=== PATIENT | male | born 1940 | race Caucasian/White ===

== ENCOUNTER 2017-05-12 10:33 | Inpatient (IN) | payer OTHER, MEDICARE ==
[~2017-05-12] VITALS: Ht 172.7 cm; Wt 118.0 kg
[2017-05-12 09:13] VITALS: BP_SYST 127; BP_SYST 139; BP_SYST 160; BP_DIAS 64; BP_DIAS 72; BP_DIAS 73; PULSE 62; RESP 20; TEMP 99.7; O2SAT 97
[~2017-05-12 10:33] MED LIST: ALBU17I INH; ASPI1TAB7 PO; ATOR80TA41 PO; CARB OP; CARV6.252 PO; CIPR500T4 PO; FERR324T4 PO; FLAG500T PO; GLIP5 PO; LEVO175T2 PO; LORA5SOL3 PO; MAGN70CA PO; METF-324 PO; OMEP20TA39 PO; PRIN10TA PO; TAB-TAB PO
[2017-05-12 10:51] VITALS: BP 100/58; PULSE 51; RESP 16; TEMP 96.7; O2SAT 95
[2017-05-12 11:07] VITALS: BP 122/58; PULSE 66; RESP 19; TEMP 97.8; O2SAT 97
[2017-05-12] MEDS ORDERED: SODIUM CHLOR 0.9% 1000 ML INJ 1,000 ML IV ONE (11:24)
[2017-05-12] MEDS ORDERED: ONDANSETRON HCL 4 MG/2 ML VIAL IVP ONE (11:30)
[2017-05-12] MEDS ORDERED: MECLIZINE HCL 25 MG TAB PO ONE (11:30)
--- NOTE | 2017-05-12 11:44 | PD ---
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 States that he felt fine this morning upon waking, ate his breakfast, then shortly thereafter became diaphoretic and weak. Says he was on the toilet and could not could not stand up to get off the toilet. Says that he became very diaphoretic and felt the room spinning, especially when moving his head. Also says he has a cough that started approximately 3-4 days ago while he was on the cruise. Patient says he returned home Thursday after an 8 day cruise began feeling the symptoms. States that he did not take all of his medications daily but took a generic OTC nausea medication daily to prevent nausea. Says he did fall yesterday hitting his head. But denies loss of consciousness. 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 Patient does not take medication for this regularly. Denies fevers, chills, chest pain, SOB, abdominal pain, vomiting, diarrhea. PFSH Past Medical History Hx Anticoagulant Therapy: Yes Arthritis: Yes Asthma: No Autoimmune Disease: No Anxiety: Yes Depression: Yes Heart Rhythm Problems: Yes Cancer: Yes Cardiovascular Problems: Yes High Cholesterol: Yes Chest Pain: No Congestive Heart Failure: Yes Cerebrovascular Accident: No Diabetes: Yes Patient Takes Glucophage: Yes Endocrine: Yes GERD: No Genitourinary: No Headaches: Yes Hiatal Hernia: Yes Hypertension: Yes Immune Disorder: No Insomnia: Yes Musculoskeletal: Yes Neurologic: Yes Psychiatric: Yes Respiratory: Yes Migraines: Yes Radiation Therapy: No Seizures: No Sleep Apnea: Yes Thyroid Disease: Yes (HYPO) Ulcer: Yes Past Surgical History Abdominal Surgery: Yes (UMBILICAL HERNIA) Eye Surgery: Yes (JASPER CATARACT) Valve Replacement: Yes (aortic repair) Other Surgery: Yes (UMBILICAL HERNIA REPAIR 80S, SHRAPNEL REMOVED FROM FACE AND LEFT SIDE 60S) Social History Alcohol Use: No (QUIT 30 YEARS AGO) Tobacco Use: No (QUIT 30 YEARS AGO) Substance Use: No Allergies-Medications (Allergen,Severity, Reaction): Coded Allergies: No Known Allergies (Unverified Allergy, Unknown, 05/12/17) Reported Meds & Prescriptions Reported Meds & Active Scripts Active Cipro (Ciprofloxacin HCl) 500 Mg Tab 500 Mg PO BID 10 Days Flagyl (Metronidazole) 500 Mg Tab 500 Mg PO TID 10 Days Reported Refresh Tears (Carboxymethylcellulose Sod) 300 Drop/15 Ml Bailey 1 Drop OP BID Carvedilol 6.25 mg (Carvedilol) 6.25 Mg Tab 0.5 Tab PO BID Ferrous Sulfate 325 Mg Tab 325 Mg PO BID Loratadine 5 Mg/5 Ml Bailey 10 Mg PO DAILY Metformin ER 24 HR (Metformin HCl) 1,000 Mg Tab 1,000 Mg PO BIDPC Hm Omeprazole (Omeprazole) 20 Mg Tab 20 Mg PO DAILY Glucotrol (Glipizide) 5 Mg Tab 5 Mg PO TID Prinivil (Lisinopril) 10 Mg Tab 10 Mg PO DAILY Lipitor 80 Mg Tab (Atorvastatin) 80 Mg Tab 80 Mg PO HS Magnesium Sulfate (Magnesium) 70 Mg Cap 70 Mg PO DAILY Multivitamin (Multivitamins) 1 Tab Tab 1 Tab PO DAILY Levothyroxine 175 mcg (Levothyroxine Sodium) 175 Mcg Tab 1 Tab PO DAILY Aspirin 81 mg Tab (Aspirin) 81 Mg Tab 1 Tab PO DAILY Proventil Mdi (Albuterol Sulfate) 17 Gm Aero 2 Puff INH Q6H PRN Review of Systems Except as stated in HPI: all other systems reviewed are Neg HENT: Positive: Vertigo Cardiovascular: Positive: Syncope Respiratory: Positive: Cough Physical Exam Narrative GENERAL: Well-developed, well-nourished in no apparent distress SKIN: Focused skin assessment cool, diaphoretic HEAD: Atraumatic. Normocephalic. EYES: Pupils equal and round. No scleral icterus. No injection or drainage. Left eye slight strabismus. No nystagmus ENT: No nasal bleeding or discharge. Mucous membranes pink and moist. NECK: Trachea midline. No JVD. No lymphadenopathy CARDIOVASCULAR: Regular rate and rhythm. No murmur appreciated. RESPIRATORY: No accessory muscle use. Right lung torre with rhonchi GASTROINTESTINAL: Abdomen soft, non-tender, nondistended. Hepatic and splenic margins not palpable. MUSCULOSKELETAL: No obvious deformities. No clubbing. No cyanosis. No edema. NEUROLOGICAL: Awake and alert. No obvious cranial nerve deficits. Motor grossly within normal limits. Normal speech. Negative pronator drift PSYCHIATRIC: Appropriate mood and affect; insight and judgment normal. Data Data Last Documented VS Vital Signs Date Time Temp Pulse Resp B/P (MAP) Pulse Ox O2 Delivery O2 Flow Rate FiO2 05/12/17 16:00 76 24 140/91 (107) 99 Room Air 05/12/17 11:07 97.8 Orders Orders Complete Blood Count With Diff (05/12/17 11:24) Comprehensive Metabolic Panel (05/12/17 11:24) Magnesium (Mg) (05/12/17 11:24) Troponin I (05/12/17 11:24) Act Partial Throm Time (Ptt) (05/12/17 11:24) Prothrombin Time / Inr (Pt) (05/12/17 11:24) Urinalysis - C+S If Indicated (05/12/17 11:24) Chest, Pa & Lat (05/12/17 11:24) Ct Brain W/O Iv Contrast(Rout) (05/12/17 11:24) Meclizine (Antivert) (05/12/17 11:30) Ondansetron Inj (Zofran Inj) (05/12/17 11:30) Sodium Chlor 0.9% 1000 Ml Inj (Ns 1000 M (05/12/17 11:24) Orthostatic Vital Signs (05/12/17 11:24) Sodium Chlorid 0.9% 500 Ml Inj (Ns 500 M (05/12/17 11:45) Electrocardiogram (05/12/17 11:08) D-Dimer (05/12/17 11:53) Ventilation & Perfusion Scan (05/12/17 ) Admit Order (Ed Use Only) (05/12/17 17:19) Labs Laboratory Tests Test 05/12/17 11:06 05/12/17 17:10 White Blood Count 6.0 TH/MM3 Red Blood Count 4.43 MIL/MM3 Hemoglobin 13.2 GM/DL Hematocrit 39.5 % Mean Corpuscular Volume 89.1 FL Mean Corpuscular Hemoglobin 29.8 PG Mean Corpuscular Hemoglobin Concent 33.4 % Red Cell Distribution Width 15.0 % Platelet Count 134 TH/MM3 Mean Platelet Volume 8.9 FL Neutrophils (%) (Auto) 59.9 % Lymphocytes (%) (Auto) 26.5 % Monocytes (%) (Auto) 7.3 % Eosinophils (%) (Auto) 5.5 % Basophils (%) (Auto) 0.8 % Neutrophils # (Auto) 3.6 TH/MM3 Lymphocytes # (Auto) 1.6 TH/MM3 Monocytes # (Auto) 0.4 TH/MM3 Eosinophils # (Auto) 0.3 TH/MM3 Basophils # (Auto) 0.0 TH/MM3 CBC Comment DIFF FINAL Differential Comment Prothrombin Time 10.7 SEC Prothromb Time International Ratio 1.1 RATIO Activated Partial Thromboplast Time 24.1 SEC D-Dimer Quantitative (PE/DVT) 1.40 MG/L FEU Blood Urea Nitrogen 35 MG/DL Creatinine 1.97 MG/DL Random Glucose 276 MG/DL Total Protein 7.4 GM/DL Albumin 3.1 GM/DL Calcium Level 8.2 MG/DL Magnesium Level 1.9 MG/DL Alkaline Phosphatase 63 U/L Aspartate Amino Transf (AST/SGOT) 59 U/L Alanine Aminotransferase (ALT/SGPT) 46 U/L Total Bilirubin 0.4 MG/DL Sodium Level 139 MEQ/L Potassium Level 3.7 MEQ/L Chloride Level 102 MEQ/L Carbon Dioxide Level 27.7 MEQ/L Anion Gap 9 MEQ/L Estimat Glomerular Filtration Rate 33 ML/MIN Troponin I 0.13 NG/ML Urine Color DARK-YELLOW Urine Turbidity HAZY Urine pH 5.5 Urine Specific [place] 1.037 Urine Protein 100 mg/dL Urine Glucose (UA) TRACE mg/dL Urine Ketones NEG mg/dL Urine Occult Blood NEG Urine Nitrite NEG Urine Bilirubin NEG Urine Urobilinogen 2.0 MG/DL Urine Leukocyte Esterase MOD Urine RBC 3 /hpf Urine WBC 10 /hpf Urine Squamous Epithelial Cells 2 /hpf Urine Bacteria OCC /hpf Urine Hyaline Casts 99 /lpf Microscopic Urinalysis Comment CULTURE INDICATED Urine Random Creatinine 405.1 MG/DL Urine Random Sodium 25 MEQ/L Urine Opiates Screen NEG Urine Barbiturates Screen NEG Urine Amphetamines Screen NEG Urine Benzodiazepines Screen NEG Urine Cocaine Screen NEG Urine Cannabinoids Screen NEG MDM Medical Decision Making Medical Screen Exam Complete: Yes Emergency Medical Condition: Yes Differential Diagnosis Vasovagal syncope syncope, NSTEMI, orthostatics, dehydration, vertigo, pneumonia , UTI, Narrative Course 76-year-old male presents emergency department via [facility] after presyncopal episode that occurred this morning. 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 In addition, patient states he has he was not completely compliant with his medications while on a cruise for the last 8 days. Says he came back on Thursday and began feeling these symptoms which include weakness. Says he fell and hit his head yesterday but denies head trauma today. [facility] administered normal saline 500 cc with improvement in patient's status and blood pressure. Vital signs stable. Labs and imaging studies ordered. CXR clear. He continues to deny SOB or chest pain. CBC & BMP Diagram 05/12/17 11:06 Total Protein 7.4, Albumin 3.1 L, Calcium Level 8.2 L, Magnesium Level 1.9, Alkaline Phosphatase 63, Aspartate Amino Transf (AST/SGOT) 59 H, Alanine Aminotransferase (ALT/SGPT) 46, Total Bilirubin 0.4 D-dimer elevated. Troponins elevated. Initially ordered a CT pulmonary angiogram however, patient's kidney function is less desirable. Ordered a VQ scan. VQ scan is a low probability of PE. Note that the Radiology report did not state this however, Dr. Roberts called the radiologist and confirmed this was a low probability study. Orthostatics positive. After reevaluation, pt sat up to sip water. Says he continued to feel dizzy and lightheaded. He says he 'only drinks soda'. I educated him on the importance of drinking water as well. Patient should be admitted for acute kidney injury likely secondary to dehydration, presyncope, and vertigo. Diagnosis Primary Impression: Bronchitis Additional Impressions: Elevated troponin MACARIO (acute kidney injury) Postural dizziness with presyncope Admitting Information Admitting Physician Requests: Admit Condition: Stable Yakelin Duggan May 12, 2017 11:44
[2017-05-12] MEDS ORDERED: SODIUM CHLORID 0.9% 500 ML INJ 500 ML IV ONE (11:45)
--- NOTE | 2017-05-12 12:04 | RADRPT ---
EXAM DATE/TIME: 05/12/2017 11:43 [facility] COMPARISON: No previous studies available for comparison. INDICATIONS : Fall yesterday. Heart palpitations and nausea. MEDICAL HISTORY : Chronic obstructive pulmonary disease. SURGICAL HISTORY : CABG. Aortic Valve replacement. ENCOUNTER: Initial ACUITY: 2 days PAIN SCORE: 0/10 LOCATION: Bilateral chest FINDINGS: PA and lateral views of the chest demonstrate the lungs to be symmetrically aerated without evidence of mass, infiltrate or effusion. Placement. Atrial appendage. Heart borderline enlarged. The cardiome diastinal contours are unremarkable. Osseous structures are intact. CONCLUSION: 1. Heart valve replacement. 2. Clear lungs. Leonardo Alvarado MD on May 12, 2017 at 12:02 Board Certified Radiologist. This report was verified electronically.
--- NOTE | 2017-05-12 12:11 | RADRPT ---
EXAM DATE/TIME: 05/12/2017 11:56 [facility] COMPARISON: No previous studies available for comparison. INDICATIONS : Dizziness. RADIATION DOSE: 51.56 CTDIvol (mGy) MEDICAL HISTORY : Cardiovascular disease. Diabetes mellitus type 2. Hypertension. SURGICAL HISTORY : None. ENCOUNTER: Initial ACUITY: 1 day PAIN SCALE: 0/10 LOCATION: cranial TECHNIQUE: Multiple contiguous axial images were obtained of the head. Using automated exposure control and adj ustment of the mA and/or kV according to patient size, radiation dose was kept as low as reasonably a chievable to obtain optimal diagnostic quality images. DICOM format image data is available electro nically for review and comparison. FINDINGS: CEREBRUM: The ventricles are normal for age. Right basal ganglia lacunar infarct indeterminate age but likely o ld. This No evidence of midline shift, mass lesion, hemorrhage or acute infarction. No extra-axial fluid collections are seen. POSTERIOR FOSSA: The cerebellum and brainstem are intact. The 4th ventricle is midline. The cerebellopontine angle i s unremarkable. EXTRACRANIAL: The visualized portion of the orbits is intact. SKULL: The calvaria is intact. No evidence of skull fracture. CONCLUSION: Lacunar infarct right basal ganglia, likely old. No other abnormality seen. Leonardo Alvarado MD on May 12, 2017 at 12:08 Board Certified Radiologist. This report was verified electronically.
[2017-05-12 12:27] LABS: AUTOMATED NEUTROPHIL # 3.6 TH/MM3 (1.8-7.7); BASOPHIL % 0.8 % (0.0-2.0); EOSINOPHIL # 0.3 TH/MM3 (0-0.4); EOSINOPHIL % 5.5 % (0.0-4.0); HEMATOCRIT 39.5 % (39.0-51.0); HEMOGLOBIN 13.2 GM/DL (13.0-17.0); LYMPH % 26.5 % (9.0-44.0); LYMPHOCYTE # 1.6 TH/MM3 (1.0-4.8); MEAN CELL VOLUME 89.1 FL (80.0-100.0); MEAN CORPUSCULAR HEMOGLOBIN 29.8 PG (27.0-34.0); MEAN CORPUSCULAR HGB CONC 33.4 % (32.0-36.0); MEAN PLATELET VOLUME 8.9 FL (7.0-11.0); MONO % 7.3 % (0.0-8.0); MONOCYTE # 0.4 TH/MM3 (0-0.9); NEUT % 59.9 % (16.0-70.0); PLATELET COUNT 134 TH/MM3 (150-450); RED BLOOD COUNT 4.43 MIL/MM3 (4.50-5.90)
[2017-05-12 12:36] LABS: INTERNATIONAL NORMALIZED RATIO 1.1 RATIO; PROTHROMBIN TIME - PATIENT 10.7 SEC (9.8-11.6)
[2017-05-12 12:40] LABS: ALBUMIN 3.1 GM/DL (3.4-5.0); AST (GOT) 59 U/L (15-37); BICARBONATE 27.7 MEQ/L (21.0-32.0); BLOOD UREA NITROGEN 35 MG/DL (7-18); CALCIUM 8.2 MG/DL (8.5-10.1); CHLORIDE 102 MEQ/L (98-107); CREATININE 1.97 MG/DL (0.60-1.30); GLOMERULAR FILTRATION RATE 33 ML/MIN (>89); GLUCOSE,RANDOM 276 MG/DL (74-106); MAGNESIUM 1.9 MG/DL (1.5-2.5); SODIUM (NA) 139 MEQ/L (136-145)
[2017-05-12 12:45] LABS: ALKALINE PHOSPHATASE 63 U/L (45-117); ALT (GPT) 46 U/L (12-78); TOTAL BILIRUBIN ADULT 0.4 MG/DL (0.2-1.0); TOTAL PROTEIN 7.4 GM/DL (6.4-8.2); TROPONIN I 0.13 NG/ML (0.02-0.05)
--- NOTE | 2017-05-12 14:41 | EKG ---
Date Performed: 05/12/2017 Time Performed: 11:08:13 PTAGE: 76 years EKG: Sinus rhythm T-WAVE ABNORMALITY, CONSIDER LATERAL ISCHEMIA ABNORMAL ECG PREVIOUS TRACING : 03/26/2015 18.12 Compared to previous tracing, high lateral T wave inversion is now present. DOCTOR: Pj Jeffers Interpretating Date/Time 05/12/2017 14:39:48
[2017-05-12 16:00] VITALS: BP 140/91; PULSE 76; RESP 24; O2SAT 99
--- NOTE | 2017-05-12 16:42 | RADRPT ---
EXAM DATE/TIME: 05/12/2017 15:21 This report includes an Addendum and supersedes previous reports for this exam. [facility] COMPARISON: CHEST PA & LAT, May 12, 2017, 11:43. INDICATIONS : Pre-Syncope with elevated d-dimer. DOSE: 1.1 mCi Tc99m DTPA 8.8 mCi Tc99m MAA MEDICAL HISTORY : Diabetes mellitus type 2. Congestive heart failure. AVR. SURGICAL HISTORY : Umbilical hernia repair. ENCOUNTER: Initial ACUITY: 1 day PAIN SCALE: 0/10 LOCATION: chest TECHNIQUE: Following five minutes of tidal breathing of DTPA aerosol, planar images of the lungs were performed in eight projections. The patient was then injected with MAA, and eight-view perfusion scan was perf ormed. FINDINGS: There is a a single matched defect only identified in the posterior aspect of the left lung in the LP O projection with no corresponding radiographic abnormality. Otherwise, homogeneous distribution of r adiotracer on both the ventilatory and perfusion scans. . CONCLUSION: Probability scan for pulmonary embolus. Brad Fleming MD on May 12, 2017 at 16:32 Board Certified Radiologist. This report was verified electronically. ADDENDUM: Please note, conclusion should read "low probability scan for pulmonary embolus" Brad Fleming MD on May 12, 2017 at 16:50 Board Certified Radiologist. This report was verified electronically.
[2017-05-12 17:26] VITALS: BP_SYST 102; BP_SYST 105; BP_SYST 129; BP_DIAS 56; BP_DIAS 62; BP_DIAS 64; RESP 16; RESP 17; RESP 19
[2017-05-12] MEDS ORDERED: SODIUM CHLORIDE 0.9% FLUSH 10 ML FLUSH IV FLUSH PRN (17:30)
[2017-05-12] MEDS ORDERED: GLUCAGON 1 MG/ML VIAL OTHER PRN (17:45)
[2017-05-12] MEDS ORDERED: DEXTROSE 50% IN WATER 50 ML VIAL(D50) IV PUSH PRN (17:45)
--- NOTE | 2017-05-12 17:55 | PD ---
Physical Exam Date Seen by Provider: May 12, 2017 Time Seen by Provider: 12:30 Narrative I, Dr. Daniels, have reviewed the advance practice practitioner's documentation and am in agreement, met with the patient face to face, made the diagnosis, and the medical decision making was done by me. *My assessment and Findings: Patient seen and evaluated with PA, please see PA note for further details. He is here because he has been feeling more dizzy and unsteady today. His blood pressure was low when EMS got there. He has no focal neurological deficits. He denies any chest pains. Initial EKG did not show significant dysrhythmias or ST elevations or depressions. Laboratory Tests Test 05/12/17 11:06 05/12/17 17:10 Red Blood Count 4.43 MIL/MM3 (4.50-5.90) Platelet Count 134 TH/MM3 (150-450) Eosinophils (%) (Auto) 5.5 % (0.0-4.0) Activated Partial Thromboplast Time 24.1 SEC (24.3-30.1) D-Dimer Quantitative (PE/DVT) 1.40 MG/L FEU (0.00-0.50) Blood Urea Nitrogen 35 MG/DL (7-18) Creatinine 1.97 MG/DL (0.60-1.30) Random Glucose 276 MG/DL (74-106) Albumin 3.1 GM/DL (3.4-5.0) Calcium Level 8.2 MG/DL (8.5-10.1) Aspartate Amino Transf (AST/SGOT) 59 U/L (15-37) Estimat Glomerular Filtration Rate 33 ML/MIN (>89) Troponin I 0.13 NG/ML (0.02-0.05) Last [address] 05/12/17 1124 Signed Impressions: Service Date/Time: Friday, May 12, 2017 11:56 - CONCLUSION: Lacunar infarct right basal ganglia, likely old. No other abnormality seen. Leonardo Alvarado MD Chest X-Ray 05/12/17 112 Signed Impressions: Service Date/Time: Friday, May 12, 2017 11:43 - CONCLUSION: 1. Heart valve replacement. 2. Clear lungs. Leonardo Alvarado MD Lung Scan- Nuclear Medicine 05/12/17 0000 Signed Impressions: Service Date/Time: Friday, May 12, 2017 15:21 - CONCLUSION: Probability scan for pulmonary embolus. Brad Fleming MD ADDENDUM: Please note, conclusion should read low probability scan for pulmonary embolus Brad Fleming MD Lab work shows significant elevation of BUN and creatinine concerning for underlying dehydration or renal function issues. Troponin is mildly elevated as well. CT of the brain did not show any signs of acute intracranial processes. D-dimer was elevated and PE study was done which was unremarkable. At this point, plan would be to admit the patient for IV fluids and further evaluation. Data Data Last Documented VS Vital Signs Date Time Temp Pulse Resp B/P (MAP) Pulse Ox O2 Delivery O2 Flow Rate FiO2 05/12/17 11:07 97.8 66 19 122/58 (79) 97 Room Air Orders Orders Complete Blood Count With Diff (05/12/17 11:24) Comprehensive Metabolic Panel (05/12/17 11:24) Magnesium (Mg) (05/12/17 11:24) Troponin I (05/12/17 11:24) Act Partial Throm Time (Ptt) (05/12/17 11:24) Prothrombin Time / Inr (Pt) (05/12/17 11:24) Urinalysis - C+S If Indicated (05/12/17 11:24) Chest, Pa & Lat (05/12/17 11:24) Ct Brain W/O Iv Contrast(Rout) (05/12/17 11:24) Meclizine (Antivert) (05/12/17 11:30) Ondansetron Inj (Zofran Inj) (05/12/17 11:30) Sodium Chlor 0.9% 1000 Ml Inj (Ns 1000 M (05/12/17 11:24) Orthostatic Vital Signs (05/12/17 11:24) Sodium Chlorid 0.9% 500 Ml Inj (Ns 500 M (05/12/17 11:45) Electrocardiogram (05/12/17 11:08) D-Dimer (05/12/17 11:53) Ventilation & Perfusion Scan (05/12/17 ) Admit Order (Ed Use Only) (05/12/17 17:19) Labs Laboratory Tests Test 05/12/17 11:06 05/12/17 17:10 White Blood Count 6.0 TH/MM3 Red Blood Count 4.43 MIL/MM3 Hemoglobin 13.2 GM/DL Hematocrit 39.5 % Mean Corpuscular Volume 89.1 FL Mean Corpuscular Hemoglobin 29.8 PG Mean Corpuscular Hemoglobin Concent 33.4 % Red Cell Distribution Width 15.0 % Platelet Count 134 TH/MM3 Mean Platelet Volume 8.9 FL Neutrophils (%) (Auto) 59.9 % Lymphocytes (%) (Auto) 26.5 % Monocytes (%) (Auto) 7.3 % Eosinophils (%) (Auto) 5.5 % Basophils (%) (Auto) 0.8 % Neutrophils # (Auto) 3.6 TH/MM3 Lymphocytes # (Auto) 1.6 TH/MM3 Monocytes # (Auto) 0.4 TH/MM3 Eosinophils # (Auto) 0.3 TH/MM3 Basophils # (Auto) 0.0 TH/MM3 CBC Comment DIFF FINAL Differential Comment Prothrombin Time 10.7 SEC Prothromb Time International Ratio 1.1 RATIO Activated Partial Thromboplast Time 24.1 SEC D-Dimer Quantitative (PE/DVT) 1.40 MG/L FEU Blood Urea Nitrogen 35 MG/DL Creatinine 1.97 MG/DL Random Glucose 276 MG/DL Total Protein 7.4 GM/DL Albumin 3.1 GM/DL Calcium Level 8.2 MG/DL Magnesium Level 1.9 MG/DL Alkaline Phosphatase 63 U/L Aspartate Amino Transf (AST/SGOT) 59 U/L Alanine Aminotransferase (ALT/SGPT) 46 U/L Total Bilirubin 0.4 MG/DL Sodium Level 139 MEQ/L Potassium Level 3.7 MEQ/L Chloride Level 102 MEQ/L Carbon Dioxide Level 27.7 MEQ/L Anion Gap 9 MEQ/L Estimat Glomerular Filtration Rate 33 ML/MIN Troponin I 0.13 NG/ML [facility] Medical Record Reviewed: Yes Supervised Visit with CHARITY: Yes Diagnosis Primary Impression: Bronchitis Additional Impressions: Elevated troponin Postural dizziness with presyncope MACARIO (acute kidney injury) Admitting Information Admitting Physician Requests: Admit Condition: Stable Leilani Daniels MD May 12, 2017 17:55
[2017-05-12 18:12] LABS: BACTERIA, URINE OCC /hpf; BILIRUBIN, URINE NEG (NEG); BLOOD, URINE NEG (NEG); GLUCOSE,URINE TRACE mg/dL (NEG); HYALINE CAST, URINE 99 /lpf (RARE); KETONE, URINE NEG (NEG); NITRITE,URINE NEG (NEG); PH, URINE 5.5 (5.0-8.5); SQUAMOUS EPITHELIAL CELL URINE 2 /hpf (0-5); URINE COLOR DARK-YELLOW (YELLW/STRAW); URINE LEUKOCYTE ESTERASE MOD (NEG)
[2017-05-12 19:41] VITALS: BP 156/64; PULSE 61; RESP 18; TEMP 97.8; O2SAT 97
--- NOTE | 2017-05-12 20:51 | HHI.HP ---
[facility] Service [facility] Primary Care Physician [facility] Admission Diagnosis MACARIO, dehydration, vertigo Diagnoses: (1) Postural dizziness with presyncope (2) MACARIO (acute kidney injury) (3) Elevated troponin Chief Complaint: Weakness, fall, dizziness, diaphoresis Travel History International Travel<30 Days: Yes Contact w/Intl Traveler <30 Da: [place] Traveled to: [facility] Traveled to Known Affected Are: No History of Present Illness Mr. 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 He was found to have acute kidney injury, elevated troponin I, lateral T-wave inversion on 12-lead EKG and is admitted to the hospitalist team for evaluation and management. The patient returned from an 8 day cruise to [facility] on Thursday morning and traveled back home and arrived around 10 PM at night. Following his arrival back home, the patient fell, 05/10/2017, states he got dizzy accompanied by nausea and fell backwards and landed on his buttock, denies loss of consciousness and denies hitting head. His called EMS at that time and he refused transport to the hospital. Then, he had an episode of feeling cold and clammy while up to urinate in the bathroom on Thursday and his again summoned EMS and he was transported to the ER. He reports his symptoms have been present for 2 days. He states that he he has been weak and could barely move on Thursday. He has some right hip pain status post fall on Thursday. He also reports severe fatigue. He states that his nausea was relieved in the emergency room with medication given. He was given meclizine, Zofran, and a normal saline fluid bolus in the ED. He denies any chest pain, shortness of breath, palpitations, or vomiting. He reports chronic daily diarrhea related to poor food choices without hematochezia or black stools. He has no recorded fevers but states he has been feeling "" warm. Denies chills. He denies any vomiting and reports chronic peripheral edema that is relieved with compression stockings. 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 Patient had a cardiac catheterization in 2013 that showed 20% blockage of 1 of his coronary arteries but otherwise has no stents or CABG history . Past Surgical History bovine aortic valve replacement 11/24/2013 Reported Medications Reported Meds & Active Scripts Active Cipro (Ciprofloxacin HCl) 500 Mg Tab 500 Mg PO BID 10 Days Flagyl (Metronidazole) 500 Mg Tab 500 Mg PO TID 10 Days Reported Refresh Tears (Carboxymethylcellulose Sod) 300 Drop/15 Ml Bailey 1 Drop OP BID Carvedilol 6.25 mg (Carvedilol) 6.25 Mg Tab 0.5 Tab PO BID Ferrous Sulfate 325 Mg Tab 325 Mg PO BID Loratadine 5 Mg/5 Ml Bailey 10 Mg PO DAILY Metformin ER 24 HR (Metformin HCl) 1,000 Mg Tab 1,000 Mg PO BIDPC Hm Omeprazole (Omeprazole) 20 Mg Tab 20 Mg PO DAILY Glucotrol (Glipizide) 5 Mg Tab 5 Mg PO TID Prinivil (Lisinopril) 10 Mg Tab 10 Mg PO DAILY Lipitor 80 Mg Tab (Atorvastatin) 80 Mg Tab 80 Mg PO HS Magnesium Sulfate (Magnesium) 70 Mg Cap 70 Mg PO DAILY Multivitamin (Multivitamins) 1 Tab Tab 1 Tab PO DAILY Levothyroxine 175 mcg (Levothyroxine Sodium) 175 Mcg Tab 1 Tab PO DAILY Aspirin 81 mg Tab (Aspirin) 81 Mg Tab 1 Tab PO DAILY Proventil Mdi (Albuterol Sulfate) 17 Gm Aero 2 Puff INH Q6H PRN . Allergies: Coded Allergies: No Known Allergies (Unverified Allergy, Unknown, 05/12/17) Family History Father at age 52 from myocardial infarction Mother had an aneurysm in her 70s so the vessel of the aneurysm is unknown to patient Brother with nonalcoholic steatosis cirrhosis with renal failure . Social History Tobacco: Has not smoked since 1977, smoked 2 - 3 PPD at the time Alcohol: Has not had alcohol since 1977 - was told his kidneys would fail if he continued to drink . Physical Exam Vital Signs Vital Signs Date Time Temp Pulse Resp B/P (MAP) Pulse Ox O2 Delivery O2 Flow Rate FiO2 05/12/17 19:41 97.8 61 18 156/64 (94) 97 Room Air 05/12/17 17:26 58 17 129/62 (84) 60 16 102/56 (71) 62 19 105/64 (78) 05/12/17 16:00 76 24 140/91 (107) 99 Room Air 05/12/17 11:07 97.8 66 19 122/58 (79) 97 Room Air 05/12/17 10:51 96.7 51 16 100/58 (72) 95 Physical Exam GENERAL: This is an overweight elderly male patient, in no apparent distress. SKIN: No rashes. Cool and dry. HEAD: Old shrapnel injury noted to forehead. Normocephalic. EYES: No scleral icterus. No injection or drainage. ENT: Nose without bleeding, purulent drainage. NECK: Trachea midline. No JVD. CARDIOVASCULAR: Regular rate and rhythm without murmurs, gallops, or rubs. Trace lower extremity edema. RESPIRATORY: Breath sounds with coarse upper airway sounds, equal bilaterally. GASTROINTESTINAL: Abdomen soft, non-tender, nondistended. No guarding. MUSCULOSKELETAL: Extremities without clubbing, cyanosis. No calf tenderness. Left hip painful with movement, weight bearing. No gross deformity/leg shortening/external rotation noted. NEUROLOGICAL: Awake and alert. Motor and sensory grossly within normal limits. Normal speech. . Laboratory Laboratory Tests Test 05/12/17 11:06 05/12/17 17:10 05/12/17 18:25 White Blood Count 6.0 Red Blood Count 4.43 Hemoglobin 13.2 Hematocrit 39.5 Mean Corpuscular Volume 89.1 Mean Corpuscular Hemoglobin 29.8 Mean Corpuscular Hemoglobin Concent 33.4 Red Cell Distribution Width 15.0 Platelet Count 134 Mean Platelet Volume 8.9 Neutrophils (%) (Auto) 59.9 Lymphocytes (%) (Auto) 26.5 Monocytes (%) (Auto) 7.3 Eosinophils (%) (Auto) 5.5 Basophils (%) (Auto) 0.8 Neutrophils # (Auto) 3.6 Lymphocytes # (Auto) 1.6 Monocytes # (Auto) 0.4 Eosinophils # (Auto) 0.3 Basophils # (Auto) 0.0 CBC Comment DIFF FINAL Differential Comment Prothrombin Time 10.7 Prothromb Time International Ratio 1.1 Activated Partial Thromboplast Time 24.1 D-Dimer Quantitative (PE/DVT) 1.40 Blood Urea Nitrogen 35 Creatinine 1.97 Random Glucose 276 Total Protein 7.4 Albumin 3.1 Calcium Level 8.2 Magnesium Level 1.9 Alkaline Phosphatase 63 Aspartate Amino Transf (AST/SGOT) 59 Alanine Aminotransferase (ALT/SGPT) 46 Total Bilirubin 0.4 Sodium Level 139 Potassium Level 3.7 Chloride Level 102 Carbon Dioxide Level 27.7 Anion Gap 9 Estimat Glomerular Filtration Rate 33 Troponin I 0.13 0.11 Urine Color DARK-YELLOW Urine Turbidity HAZY Urine pH 5.5 Urine Specific Krypton 1.037 Urine Protein 100 Urine Glucose (UA) TRACE Urine Ketones NEG Urine Occult Blood NEG Urine Nitrite NEG Urine Bilirubin NEG Urine Urobilinogen 2.0 Urine Leukocyte Esterase MOD Urine RBC 3 Urine WBC 10 Urine Squamous Epithelial Cells 2 Urine Bacteria OCC Urine Hyaline Casts 99 Microscopic Urinalysis Comment CULTURE INDICATED B-Type Natriuretic Peptide 17 Date/Time Source Procedure Growth Status 05/12/17 17:10 Urine Clean Catch Urine Culture Pending Received Result Diagram: 05/12/17 1106 05/12/17 1106 Imaging Last Impressions Head CT 05/12/17 1124 Signed Impressions: Service Date/Time: Friday, May 12, 2017 11:56 - CONCLUSION: Lacunar infarct right basal ganglia, likely old. No other abnormality seen. Leonardo Alvarado MD Chest X-Ray 05/12/17 1124 Signed Impressions: Service Date/Time: Friday, May 12, 2017 11:43 - CONCLUSION: 1. Heart valve replacement. 2. Clear lungs. Leonardo Alvarado MD Lung Scan- Nuclear Medicine 05/12/17 0000 Signed Impressions: Service Date/Time: Friday, May 12, 2017 15:21 - CONCLUSION: Probability scan for pulmonary embolus. Brad Fleming MD ADDENDUM: Please note, conclusion should read low probability scan for pulmonary embolus Brad Fleming MD . Caprini VTE Risk Assessment Caprini VTE Risk Assessment: Mod/High Risk (score >= 2) Caprini Risk Assessment Model Point Value = 1 Point Value = 2 Point Value = 3 Point Value = 5 Age 41-60 Minor surgery BMI > 25 kg/m2 Swollen legs Varicose veins or History of unexplained or recurrent spontaneous Oral contraceptives or hormone replacement Sepsis (< 1 month) Serious lung disease, including pneumonia (< 1 month) Abnormal pulmonary function Acute myocardial infarction Congestive heart failure (< 1 month) History of inflammatory bowel disease Medical patient at bed rest Age 61-74 Arthroscopic surgery Major open surgery (> 45 min) Laparoscopic surgery (> 45 min) Malignancy Confined to bed (> 72 hours) Immobilizing plaster cast Central venous access Age >= 75 History of VTE Family history of VTE Factor V Leiden Prothrombin 21987S Lupus anticoagulant Anticardiolipin antibodies Elevated serum homocysteine Heparin-induced thrombocytopenia Other congenital or acquired thrombophilia Stroke (< 1 month) Elective arthroplasty Hip, pelvis, or leg fracture Acute spinal cord injury (< 1 month) Prophylaxis Regimen Total Risk Factor Score Risk Level Prophylaxis Regimen 0-1 Low Early ambulation 2 Moderate Order ONE of the following: *Sequential Compression Device (SCD) *Heparin 5000 units SQ BID 3-4 Higher Order ONE of the following medications: *Heparin 5000 units SQ TID *Enoxaparin/Lovenox 40 mg SQ daily (WT < 150 kg, CrCl > 30 mL/min) *Enoxaparin/Lovenox 30 mg SQ daily (WT < 150 kg, CrCl > 10-29 mL/min) *Enoxaparin/Lovenox 30 mg SQ BID (WT < 150 kg, CrCl > 30 mL/min) AND/OR *Sequential Compression Device (SCD) 5 or more Highest Order ONE of the following medications: *Heparin 5000 units SQ TID (Preferred with Epidurals) *Enoxaparin/Lovenox 40 mg SQ daily (WT < 150 kg, CrCl > 30 mL/min) *Enoxaparin/Lovenox 30 mg SQ daily (WT < 150 kg, CrCl > 10-29 mL/min) *Enoxaparin/Lovenox 30 mg SQ BID (WT < 150 kg, CrCl > 30 mL/min) AND *Sequential Compression Device (SCD) Assessment and Plan Assessment and Plan Mr. 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 He was found to have acute kidney injury, elevated troponin I, lateral T-wave inversion on 12-lead EKG and is admitted to the hospitalist team for evaluation and management. Elevated cardiac enzymes possibly secondary to acute kidney injury versus ACS -Lateral T-wave inversion on 12-lead on initial EKG -awaiting subsequent EKGs for trending -follow results -Serial cardiac enzymes to rule out ACS -initial troponin I was 0.13 and second troponin is trending downward at 0.11 -await third cardiac enzyme set and follow results -Continuous cardiac telemetry to monitor for arrhythmia Dizziness with fall Chronic vertigo duration 6 months due to hearing loss in the right ear according to the patient -The patient fell on 05/10/2017 -states he got dizzy accompanied by nausea and fell backwards and landed on his buttock, denies loss of consciousness and denies hitting head -had an episode of feeling cold and clammy while up to urinate in the bathroom on Thursday resulting in ER evaluation -We will check echocardiogram to check cardiac structure and function, Holter monitor to check for contributing arrhythmias overtime, EEG to rule out seizure activity, carotid ultrasound to rule out carotid artery stenosis -Head CT showed likely old lacunar infarct right basal ganglia with no other abnormalities seen. Will order MRI/MRA of the brain to further evaluate -Consult neurology; appreciate assistance and recommendations Acute kidney injury likely secondary to dehydration -BUN 35, creatinine 1.97, estimated GFR 33 -significantly worsened compared to 2014 labs and patient denies any current problems with kidneys -does not see a gang pusher -Fluid bolus given in the ED -We will recheck kidney function in a.m. and follow results -Follow-up results of renal ultrasound -Avoid nephrotoxins -May want nephrology consultation if MACARIO persists Type 2 Diabetes Mellitus -We will hold home Glucotrol and metformin for now (med rec still not completed but would hold regardless at this time) - Accu-Cheks before meals and at bedtime with low-dose NovoLog sliding scale coverage - Hypoglycemia protocol - Monitor trends and blood glucose readings and adjust treatments as indicated Abnormal urinalysis -Urine culture pending; await results -will hold off on antibiotics for now as patient does not have an elevated white count and is afebrile Bronchitis suspected -Chest x-ray negative for acute cardiopulmonary process -Duo nebulizers every 4 hours as needed for shortness of breath/wheezing Right hip pain status post fall at home -We will check x-ray of hip but suspect this may be more of an acute on chronic process-arthritic pain with exacerbation -Patient does not want narcotic medications will add Tylenol as needed for pain AST elevation of undetermined significance -Will repeat CMP in a.m. and follow results DVT prophylaxis -Heparin 5000 units subcu every 8 hours Nursing to complete medication reconciliation so that patient's home meds can be restarted - RN was in a trauma at the time of my visit - order written and RN to complete and notify medical team when completed Discussed Condition With Patient and Dr. Reyes Physician Certification 2 Midnight Certification Type: Admission for Inpatient Services Order for Inpatient Services The services are ordered in accordance with Medicare regulations or non- Medicare payer requirements, as applicable. In the case of services not specified as inpatient-only, they are appropriately provided as inpatient services in accordance with the 2-midnight benchmark. Estimated LOS (days): 3 days is the estimated time the patient will need to remain in the hospital, assuming treatment plan goals are met and no additional complications. Post-Hospital Plan: Not yet determined Day Sinha May 12, 2017 20:51
--- NOTE | 2017-05-12 21:42 | RADRPT ---
EXAM DATE/TIME: 05/12/2017 19:41 [facility] COMPARISON: No previous studies available for comparison. INDICATIONS : Elevated labs. MEDICAL HISTORY : Hypertension. Hypercholesterolemia. Hypothyroidism. Gout. Joint pain. Diabetes. Arthritis. SURGICAL HISTORY : Left shoulder. ENCOUNTER: Initial ACUITY: 1 day PAIN SCORE: 0/10 LOCATION: Bilateral flank MEASUREMENTS: RIGHT KIDNEY: 9.9 x 4.8 x 8.5 cm LEFT KIDNEY: 10.6 x 4.7 x 5.6 cm FINDINGS: No hydronephrosis. 7 mm x 5 mm calculus mid pole right kidney. No perinephric fluid. Bladder unremark able. CONCLUSION: 1. Nonobstructing right renal calculus. Renal ultrasound otherwise unremarkable. Jose Guadalupe Block MD on May 12, 2017 at 21:39 Board Certified Radiologist. This report was verified electronically.
--- NOTE | 2017-05-12 21:42 | RADRPT ---
EXAM DATE/TIME: 05/12/2017 19:17 [facility] COMPARISON: No previous studies available for comparison. INDICATIONS : Syncope. MEDICAL HISTORY : Hypertension. Hypercholesterolemia. Hypothyroidism. Diabetes. Gout. Arthritis. Neuropathy. SURGICAL HISTORY : Umbilical hernia. Left rotator cuff repair. ENCOUNTER: Initial ACUITY: 1 day PAIN SCORE: 2/10 LOCATION: Bilateral neck PEAK SYSTOLIC VELOCITIES (cm/sec): ICA/CCA RATIO: Right: 1.2 Left: 1.1 ICA: Right: 57 Left: 75 CCA: Right: 47 Left: 70 ECA: Right: 60 Left: 53 VERTEBRAL: Right: 42 antegrade Left: 37 antegrade Elevated flow velocities and ICA/CCA ratios have been found to correlate with increased degrees of vessel stenosis, calculated as percentage of diameter relative to a normal segment of distal ICA/CCA FINDINGS: RIGHT CAROTID: No significant stenosis is visualized. The waveforms are within normal limits. LEFT CAROTID: No significant stenosis is visualized. The waveforms are within normal limits. VERTEBRAL ARTERIES: Antegrade flow is seen in both vertebral arteries. MISCELLANEOUS: None. CONCLUSION: 1. Mild bilateral plaque formation the carotid arteries. No hemodynamically significant stenosis. Chucky tebral artery flow is antegrade. Jose Guadalupe Block MD on May 12, 2017 at 21:39 Board Certified Radiologist. This report was verified electronically.
[2017-05-12] MEDS ORDERED: RESP: ALBUTEROL 2.5 MG/IPRATROPIUM 0.5 MG NEB (PRN) NEB (21:45)
--- NOTE | 2017-05-12 22:45 | RADRPT ---
EXAM DATE/TIME: 05/12/2017 21:39 [facility] COMPARISON: No previous studies available for comparison. INDICATIONS : Right hip pain after fall. MEDICAL HISTORY : Chronic obstructive pulmonary disease. SURGICAL HISTORY : CABG. Aortic Valve replacement. ENCOUNTER: Initial ACUITY: 2 days PAIN SCORE: 5/10 LOCATION: Right hip. FINDINGS: Examination of the right hip was performed with AP Pelvis. The primary and secondary trabecular michelle prince of the femoral neck is intact. The hip joint is of normal width without significant sclerosis or bony hypertrophy. The acetabulum is grossly intact. CONCLUSION: 1. No acute bony abnormality. Jose Guadalupe Block MD on May 12, 2017 at 22:41 Board Certified Radiologist. This report was verified electronically.
--- NOTE | 2017-05-12 23:01 | RADRPT ---
EXAM DATE/TIME: 05/12/2017 22:10 [facility] COMPARISON: No previous studies available for comparison. INDICATIONS : CVA. MEDICAL HISTORY : Hypothyroidism. SURGICAL HISTORY : Aortic valve replacment, Hernia repair. ENCOUNTER: Initial ACUITY: 1 day PAIN SCORE: 2/10 LOCATION: Bilateral cranial TECHNIQUE: Multiplanar, multisequence MRI of the brain was performed without contrast. FINDINGS: CEREBRUM: The ventricles are normal for age. No evidence of midline shift, mass lesion, hemorrhage or acute in farction. No extraaxial fluid collections are seen. The pituitary gland and suprasellar cistern are normal in configuration. WHITE MATTER: No significant signal abnormalities are seen in the white matter. POSTERIOR FOSSA: The cerebellum and brainstem are intact. The 4th ventricle is midline. The cerebellopontine angle is unremarkable. The cerebellar tonsils are normal in position. DIFFUSION IMAGING: No focal areas of restricted diffusion are seen. No evidence of acute infarction. EXTRACRANIAL: The visualized portions of the orbits and paranasal sinuses are unremarkable. CONCLUSION: 1. No acute findings. Remote lacunar infarct right basal ganglia. No recent infarct, mass effect or s hift. Jose Guadalupe Block MD on May 12, 2017 at 22:57 Board Certified Radiologist. This report was verified electronically.
--- NOTE | 2017-05-12 23:04 | RADRPT ---
EXAM DATE/TIME: 05/12/2017 22:10 [facility] COMPARISON: No previous studies available for comparison. INDICATIONS : CVA. MEDICAL HISTORY : Hypothyroidism. SURGICAL HISTORY : Aortic valve replacment, Hernia repair. ENCOUNTER: Initial ACUITY: 1 day PAIN SCORE: 3/10 LOCATION: Bilateral cranial Please note a normal MRA of the brain does not entirely exclude the possibility of a small aneurysm, nor the possibility of distal intracranial vessel disease. TECHNIQUE: 3D time of flight MRA was performed. Source images, multiplanar STS MIP, and 3D volume MIP reconstru ctions were reviewed. FINDINGS: Least a moderate focal stenosis of the distal right middle cerebral artery. Mild stenosis left landscaper ior cerebral artery. Basilar artery and distal internal carotid artery are patent. The anterior cereb ral artery is patent. CONCLUSION: 1. 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 Mild to moderate stenosis left landscaper ior cerebral artery. No other stenosis identified. Jose Guadalupe Block MD on May 12, 2017 at 22:59 Board Certified Radiologist. This report was verified electronically.
[2017-05-12] MEDS ORDERED: ACETAMINOPHEN 325 MG TAB PO PRN (23:30)
[2017-05-12] MEDS: INSULIN ASPART SUPPLEMENTAL SCALE SQ SCH (23:33)
[2017-05-12] MEDS: HEPARIN SODIUM - SQ 10,000 UNITS/ML VIAL SQ SCH (23:35)
[2017-05-12] MEDS: SODIUM CHLORIDE 0.9% FLUSH 10 ML FLUSH IV FLUSH SCH (23:39)
[2017-05-13] VITALS (7 sets, daily range): BP systolic 117–176; BP diastolic 58–89; PULSE 57–70; RESP 16–22; TEMP 95.5–98; O2SAT 95–98
[2017-05-13 02:15] LABS: CREATININE, RANDOM URINE 405.1 MG/DL
[2017-05-13 06:15] LABS: ALBUMIN 3.1 GM/DL (3.4-5.0); ALKALINE PHOSPHATASE 65 U/L (45-117); ALT (GPT) 38 U/L (12-78); AST (GOT) 57 U/L (15-37); BICARBONATE 21.9 MEQ/L (21.0-32.0); BLOOD UREA NITROGEN 34 MG/DL (7-18); CALCIUM 8.4 MG/DL (8.5-10.1); CHLORIDE 105 MEQ/L (98-107); CREATININE 1.42 MG/DL (0.60-1.30); GLOMERULAR FILTRATION RATE 49 ML/MIN (>89); GLUCOSE,RANDOM 129 MG/DL (74-106); PHOSPHORUS 2.3 MG/DL (2.5-4.9); SODIUM (NA) 137 MEQ/L (136-145); TOTAL BILIRUBIN ADULT 0.4 MG/DL (0.2-1.0); TOTAL PROTEIN 7.5 GM/DL (6.4-8.2); TROPONIN I 0.14 NG/ML (0.02-0.05)
[2017-05-13 07:01] LABS: AUTOMATED NEUTROPHIL # 3.6 TH/MM3 (1.8-7.7); BASOPHIL % 0.7 % (0.0-2.0); EOSINOPHIL # 0.2 TH/MM3 (0-0.4); EOSINOPHIL % 3.7 % (0.0-4.0); HEMOGLOBIN 13.5 GM/DL (13.0-17.0); LYMPH % 33.3 % (9.0-44.0); LYMPHOCYTE # 2.2 TH/MM3 (1.0-4.8); MEAN CELL VOLUME 88.3 FL (80.0-100.0); MEAN CORPUSCULAR HEMOGLOBIN 29.9 PG (27.0-34.0); MEAN CORPUSCULAR HGB CONC 33.8 % (32.0-36.0); MONO % 7.4 % (0.0-8.0); MONOCYTE # 0.5 TH/MM3 (0-0.9); NEUT % 54.9 % (16.0-70.0); PLATELET COUNT 140 TH/MM3 (150-450); RED BLOOD COUNT 4.53 MIL/MM3 (4.50-5.90); RED CELL DISTRIBUTION WIDTH 14.9 % (11.6-17.2); WHITE BLOOD COUNT 6.6 TH/MM3 (4.0-11.0)
[2017-05-13] MEDS: INSULIN ASPART SUPPLEMENTAL SCALE SQ SCH ×4 (08:00→21:42)
[2017-05-13] MEDS: HEPARIN SODIUM - SQ 10,000 UNITS/ML VIAL SQ SCH ×3 (09:00→21:11)
[2017-05-13] MEDS: SODIUM CHLORIDE 0.9% FLUSH 10 ML FLUSH IV FLUSH SCH ×2 (09:02→21:11)
[2017-05-13] MEDS ORDERED: FLUDROCORTISONE ACETATE 0.1 MG TAB PO ONE (11:15)
[2017-05-13] MEDS ORDERED: GLIP10TA6 PO (14:43)
[2017-05-13] MEDS ORDERED: FERR325T18 PO (14:46)
[2017-05-14] VITALS (7 sets, daily range): BP systolic 131–186; BP diastolic 66–90; PULSE 59–71; RESP 16–22; TEMP 96.2–97.8; O2SAT 94–95
[2017-05-14] MEDS: HEPARIN SODIUM - SQ 10,000 UNITS/ML VIAL SQ SCH ×3 (06:13→21:18)
--- NOTE | 2017-05-14 07:15 | MG ---
cc: Felix Cho MD DATE OF STUDY: 05/13/2017 REFERRING PHYSICIAN: Dr. Cade. INDICATION: An EEG was obtained on this 76-year-old patient with near-syncopal episodes. DESCRIPTION: The EEG shows 8-10 per second alpha rhythms posteriorly and there are beta rhythms intermixed with artifact in the central and frontal head regions. The patient enters sleep and there are theta rhythms diffusely along with beta activity along with reduction of the artifact from awakening. There is probably some sleep stage II was well. Hyperventilation was not performed. Photic stimulation disclosed no significant change. INTERPRETATION: Normal awake and light sleep electroencephalogram. Felix Cho MD [facility] , 06:55 AM , 07:15 AM
[2017-05-14] MEDS: INSULIN ASPART SUPPLEMENTAL SCALE SQ SCH ×4 (08:12→21:19)
[2017-05-14] MEDS: FLUDROCORTISONE ACETATE 0.1 MG TAB PO SCH (08:15)
[2017-05-14] MEDS: SODIUM CHLORIDE 0.9% FLUSH 10 ML FLUSH IV FLUSH SCH ×2 (08:16→20:13)
--- NOTE | 2017-05-14 08:56 | HHI.PR ---
Subjective Remarks At the margin of the bed. Says he still feels lightheaded especially when he is walking. However feels improved today. No fever or chills. No n/v/d/c. He has no chest pain or sob. No palpitations. Objective Vitals Vital Signs Date Time Temp Pulse Resp B/P (MAP) Pulse Ox O2 Delivery O2 Flow Rate FiO2 05/14/17 04:00 96.2 65 22 141/81 (101) 95 05/14/17 02:25 64 05/14/17 00:00 96.8 62 22 131/66 (87) 95 05/13/17 20:52 96.8 63 22 176/82 (113) 95 05/13/17 16:00 96.7 62 20 150/71 (97) 96 05/13/17 14:00 95.5 65 20 155/89 (111) 98 05/13/17 11:41 97.7 69 16 121/59 (79) 96 I/O 05/13/17 05/13/17 05/13/17 05/14/17 05/14/17 05/14/17 07:00 15:00 23:00 07:00 15:00 23:00 Intake Total 420 ml Output Total 550 ml Balance -130 ml Intake Oral 420 ml Output Urine Total 550 ml # Bowel Movements 1 Result Diagram: 05/13/17 0440 05/13/17 0440 Imaging Last Impressions Head CT 05/12/171123 Signed Impressions: Service Date/Time: Friday, May 12, 2017 11:56 - CONCLUSION: Lacunar infarct right basal ganglia, likely old. No other abnormality seen. Leonardo Alvarado MD Chest X-Ray 05/12/17 112 Signed Impressions: Service Date/Time: Friday, May 12, 2017 11:43 - CONCLUSION: 1. Heart valve replacement. 2. Clear lungs. Leonardo Alvarado MD Renal Ultrasound 05/12/17 0000 Signed Impressions: Service Date/Time: Friday, May 12, 2017 19:41 - CONCLUSION: 1. Nonobstructing right renal calculus. Renal ultrasound otherwise unremarkable. Jose Guadalupe Block MD Lung Scan- Nuclear Medicine 05/12/17 0000 Signed Impressions: Service Date/Time: Friday, May 12, 2017 15:21 - CONCLUSION: Probability scan for pulmonary embolus. Brad Fleming MD ADDENDUM: Please note, conclusion should read low probability scan for pulmonary embolus Brad Fleming MD Hip and Pelvis X-Ray 05/12/17 0000 Signed Impressions: Service Date/Time: Friday, May 12, 2017 21:39 - CONCLUSION: 1. No acute bony abnormality. Jose Guadalupe Block MD Head Magnetic Resonance Angiography 05/12/17 0000 Signed Impressions: Service Date/Time: Friday, May 12, 2017 22:10 - CONCLUSION: 1. 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 Mild to moderate stenosis left posterior cerebral artery. No other stenosis identified. Jose Guadalupe Block MD Carotid Artery Ultrasound 05/12/17 0000 Signed Impressions: Service Date/Time: Friday, May 12, 2017 19:17 - CONCLUSION: 1. Mild bilateral plaque formation the carotid arteries. No hemodynamically significant stenosis. Vertebral artery flow is antegrade. Jose Guadalupe Block MD Brain MRI 05/12/17 0000 Signed Impressions: Service Date/Time: Friday, May 12, 2017 22:10 - CONCLUSION: 1. No acute findings. Remote lacunar infarct right basal ganglia. No recent infarct, mass effect or shift. Jose Guadalupe Block MD Objective Remarks GENERAL: This is an overweight elderly male patient, in no apparent distress. SKIN: No rashes. Cool and dry. HEAD: Old shrapnel injury noted to forehead. Normocephalic. CARDIOVASCULAR: Regular rate and rhythm without murmurs, gallops, or rubs. Trace lower extremity edema. RESPIRATORY: Breath sounds with coarse upper airway sounds, equal bilaterally. GASTROINTESTINAL: Abdomen soft, non-tender, nondistended. No guarding. MUSCULOSKELETAL: Extremities without clubbing, cyanosis. No calf tenderness. Left hip painful with movement, weight bearing. No gross deformity/leg shortening/external rotation noted. NEUROLOGICAL: Awake and alert. Motor and sensory grossly within normal limits. Normal speech. A/P Problem List: (1) Postural dizziness with presyncope ICD Code: R42 - Dizziness and giddiness; R55 - Syncope and collapse Status: Acute (2) MACARIO (acute kidney injury) ICD Code: N17.9 - Acute kidney failure, unspecified Status: Acute (3) Elevated troponin ICD Code: R74.8 - Abnormal levels of other serum enzymes Status: Acute Assessment and Plan Mr. 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 He was found to have acute kidney injury, elevated troponin I, lateral T-wave inversion on 12-lead EKG and is admitted to the hospitalist team for evaluation and management. Elevated cardiac enzymes possibly secondary to acute kidney injury versus ACS Lateral T-wave inversion on 12-lead on initial EKG -awaiting subsequent EKGs for trending -follow results Serial cardiac enzymes to rule out ACS -initial troponin I was 0.13 and second troponin is trending downward at 0.11 -await third cardiac enzyme set and follow results Continuous cardiac telemetry to monitor for arrhythmia Dizziness with fall - Chronic vertigo duration 6 months due to hearing loss in the right ear according to the patient The patient fell on 05/10/2017 -states he got dizzy accompanied by nausea and fell backwards and landed on his buttock, denies loss of consciousness and denies hitting head had an episode of feeling cold and clammy while up to urinate in the bathroom on Thursday resulting in ER evaluation Check echocardiogram to check cardiac structure and function, Holter monitor to check for contributing arrhythmias overtime, EEG to rule out seizure activity, carotid ultrasound to rule out carotid artery stenosis Head CT showed likely old lacunar infarct right basal ganglia with no other abnormalities seen. Will order MRI/MRA of the brain to further evaluate Consult neurology; appreciate assistance and recommendations Acute kidney injury likely secondary to dehydration BUN 35, creatinine 1.97, estimated GFR 33 -significantly worsened compared to 2014 labs and patient denies any current problems with kidneys -does not see a digital media designer Fluid bolus given in the ED We will recheck kidney function in a.m. and follow results Follow-up results of renal ultrasound Avoid nephrotoxins May want nephrology consultation if MACARIO persists Type 2 Diabetes Mellitus We will hold home Glucotrol and metformin for now (med rec still not completed but would hold regardless at this time) Accu-Cheks before meals and at bedtime with low-dose NovoLog sliding scale coverage Hypoglycemia protocol Monitor trends and blood glucose readings and adjust treatments as indicated Abnormal urinalysis Urine culture pending; await results -will hold off on antibiotics for now as patient does not have an elevated white count and is afebrile Bronchitis suspected Chest x-ray negative for acute cardiopulmonary process Duo nebulizers every 4 hours as needed for shortness of breath/wheezing Right hip pain status post fall at home We will check x-ray of hip but suspect this may be more of an acute on chronic process-arthritic pain with exacerbation Patient does not want narcotic medications will add Tylenol as needed for pain AST elevation of undetermined significance Will repeat CMP in a.m. and follow results DVT prophylaxis -Heparin 5000 units subcu every 8 hours Nursing to complete medication reconciliation so that patient's home meds can be restarted - RN was in a trauma at the time of my visit - order written and RN to complete and notify medical team when completed Discussed Condition With Patient, nurse Joan Loaiza MD May 14, 2017 08:56
--- NOTE | 2017-05-14 09:18 | HHI.PR ---
Subjective Remarks Delayed entry for 05/13/2017. Follow-up for dizziness, orthostatic hypotension. Patient is currently doing well. Sitting in bed, no acute concerns. However when he stands up he complains of dizziness and lightheadedness. No chest pain, shortness of breath , fever or chills. Objective Vitals Vital Signs Date Time Temp Pulse Resp B/P (MAP) Pulse Ox O2 Delivery O2 Flow Rate FiO2 05/14/17 08:48 96.7 61 16 170/79 (109) 94 05/14/17 04:00 96.2 65 22 141/81 (101) 95 05/14/17 02:25 64 05/14/17 00:00 96.8 62 22 131/66 (87) 95 05/13/17 20:52 96.8 63 22 176/82 (113) 95 05/13/17 16:00 96.7 62 20 150/71 (97) 96 05/13/17 14:00 95.5 65 20 155/89 (111) 98 05/13/17 11:41 97.7 69 16 121/59 (79) 96 I/O 05/13/17 05/13/17 05/13/17 05/14/17 05/14/17 05/14/17 07:00 15:00 23:00 07:00 15:00 23:00 Intake Total 420 ml Output Total 550 ml Balance -130 ml Intake Oral 420 ml Output Urine Total 550 ml # Bowel Movements 1 Result Diagram: 05/13/17 0440 05/13/17 0440 Imaging Last Impressions Head CT 05/12/17 1124 Signed Impressions: Service Date/Time: Friday, May 12, 2017 11:56 - CONCLUSION: Lacunar infarct right basal ganglia, likely old. No other abnormality seen. Leonardo Alvarado MD Chest X-Ray 05/12/17 1124 Signed Impressions: Service Date/Time: Friday, May 12, 2017 11:43 - CONCLUSION: 1. Heart valve replacement. 2. Clear lungs. Leonardo Alvarado MD Renal Ultrasound 05/12/17 0000 Signed Impressions: Service Date/Time: Friday, May 12, 2017 19:41 - CONCLUSION: 1. Nonobstructing right renal calculus. Renal ultrasound otherwise unremarkable. Jose Guadalupe Block MD Lung Scan-VQ Nuclear Medicine 05/12/17 0000 Signed Impressions: Service Date/Time: Friday, May 12, 2017 15:21 - CONCLUSION: Probability scan for pulmonary embolus. Brad Fleming MD ADDENDUM: Please note, conclusion should read low probability scan for pulmonary embolus Brad Fleming MD Hip and Pelvis X-Ray 05/12/17 0000 Signed Impressions: Service Date/Time: Friday, May 12, 2017 21:39 - CONCLUSION: 1. No acute bony abnormality. Jose Guadalupe Block MD Head Magnetic Resonance Angiography 05/12/17 0000 Signed Impressions: Service Date/Time: Friday, May 12, 2017 22:10 - CONCLUSION: 1. 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 Mild to moderate stenosis left posterior cerebral artery. No other stenosis identified. Jose Guadalupe Block MD Carotid Artery Ultrasound 05/12/17 0000 Signed Impressions: Service Date/Time: Friday, May 12, 2017 19:17 - CONCLUSION: 1. Mild bilateral plaque formation the carotid arteries. No hemodynamically significant stenosis. Vertebral artery flow is antegrade. Jose Guadalupe Block MD Brain MRI 05/12/17 0000 Signed Impressions: Service Date/Time: Friday, May 12, 2017 22:10 - CONCLUSION: 1. No acute findings. Remote lacunar infarct right basal ganglia. No recent infarct, mass effect or shift. Jose Guadalupe Block MD Objective Remarks GENERAL: Alert, oriented 3, NAD. SKIN: Warm and dry. HEAD: Normocephalic. EYES: No scleral icterus. No injection or drainage. NECK: Supple, trachea midline. No JVD or lymphadenopathy. CARDIOVASCULAR: Regular rate and rhythm without murmurs, gallops, or rubs. RESPIRATORY: Breath sounds equal bilaterally. No accessory muscle use. GASTROINTESTINAL: Abdomen soft, non-tender, nondistended. MUSCULOSKELETAL: No cyanosis, or edema. BACK: Nontender without obvious deformity. No CVA tenderness. Procedures None A/P Problem List: (1) Postural dizziness with presyncope ICD Code: R42 - Dizziness and giddiness; R55 - Syncope and collapse Status: Acute (2) MACARIO (acute kidney injury) ICD Code: N17.9 - Acute kidney failure, unspecified Status: Acute (3) Elevated troponin ICD Code: R74.8 - Abnormal levels of other serum enzymes Status: Acute Assessment and Plan Mr. 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 He was found to have acute kidney injury, elevated troponin I, lateral T-wave inversion on 12-lead EKG and is admitted to the hospitalist team for evaluation and management. Orthostatic hypotension - Probably the likely etiology for patient's symptoms of dizziness, lightheadedness. - Will start patient on Fludrocortisone 0.1mg Qday - if high BP develops, we can use it every other day. Elevated cardiac enzymes possibly secondary to acute kidney injury versus ACS -No chest pain. -Serial cardiac enzymes to rule out ACS -initial troponin I were 0.13, 0.11, 0.14. -Continuous cardiac telemetry to monitor for arrhythmia Dizziness with fall Chronic vertigo duration 6 months due to hearing loss in the right ear according to the patient -The patient fell on 05/10/2017 -states he got dizzy accompanied by nausea and fell backwards and landed on his buttock, denies loss of consciousness and denies hitting head -had an episode of feeling cold and clammy while up to urinate in the bathroom on Thursday resulting in ER evaluation -EEG, Echo pending. -Head CT showed likely old lacunar infarct right basal ganglia with no other abnormalities seen. MRI, MRA brain pending. -Neurology consult pending. Acute kidney injury likely secondary to dehydration -BUN 35, creatinine 1.97, estimated GFR 33, Improved to 1.42 on 05/13/2017. -Avoid nephrotoxins. K+ 3.3, can be replaced with PO KCL. Type 2 Diabetes Mellitus - Sliding scale insulin for now. He takes metformin and glipizide at home. Patient may need long acting insulin. Goal blood glucose 140 -180. Abnormal urinalysis -Urine culture unremarkable. No abx needed. Full code. Heparin SQ. Trista Villatoro DO May 14, 2017 9:18 am
--- NOTE | 2017-05-14 09:18 | MB ---
cc: Usman Salinas MD, PhD DATE: 05/13/2017 REASON FOR CONSULTATION: Vertigo. HISTORY OF PRESENT ILLNESS: Mr. Sanz is a very nice 76-year-old man who recently was returning from a cruise to [place], developed vertigo, where he felt the room was spinning, a sense of unsteadiness. He has a long history of decreased hearing in the right ear. He had no focal deficits. No double vision or speech change. His symptoms have since resolved. PAST MEDICAL HISTORY: History of congestive heart failure, aortic valve stenosis with a bovine aortic valve replacement, type 2 diabetes, peripheral neuropathy, hypertension. CURRENT MEDICATIONS: Florinef 0.1 mg daily, Tylenol, subcutaneous heparin. PHYSICAL EXAMINATION: VITAL SIGNS: Blood pressure is 176/82, pulse 63, respiratory rate is 22, temperature 96.8 degrees. NEUROLOGIC: Higher cortical functions are normal. Cranial nerves are intact. Motor exam, no focal deficits. Cerebellar testing is normal with no dysmetria. IMAGING: MRI of the brain is normal. MRA brain, mild stenosis of right MCA distally and left KNOTTER HAND. CT brain, no acute change. LABORATORY DATA: White count 6600, hemoglobin 13.5, hematocrit 40%, platelets 140,000. Sodium is 137, potassium 3.3, chloride 105, CO2 is 21.9, BUN is 34, creatinine 1.42. IMPRESSION: Vertigo, probably benign positional vertigo. There is no evidence of stroke. RECOMMENDATIONS: Meclizine on a p.r.n. basis. If the patient is stable tomorrow, he is cleared neurologically for discharge. Followup with me in the office in 3 weeks. Usman Salinas MD, PhD ANALILIA/ARPIT , 12:22 AM , 12:41 AM
[2017-05-14] MEDS ORDERED: POTASSIUM CHLORIDE 10 MEQ CONTROLLED RELEASE TAB PO ONE (10:00)
[2017-05-14] MEDS ORDERED: ALBUTEROL SULFATE 90 MCG/ACT HFA 8 GM INHALER INH PRN (12:00)
[2017-05-14] MEDS: CARBOXYMETHYLCELL SOD 0.5% OPTH SOLN 15 ML BTL EACH EYE SCH ×2 (12:00→20:12)
--- NOTE | 2017-05-14 15:11 | ECHRPT ---
Indication: HEART FAILURE CONCLUSIONS The left ventricular systolic function is low normal with an estimated ejection fraction in the rang e of 50- 55%. Normal left ventricular size. Wall thickness is measured at the upper limits of normal. No regional wall motion abnormalities are present. The aortic valve prosthesis is normal to two-dimensional, color flow and Doppler interrogation. Aortic valve mean gradient is 5 mmHg. Trivial pulmonary valve regurgitation. BP: 141 / 81 HR: 101 Rhythm: MEASUREMENTS (Male / Female) Normal Values Technical Quality:Technically difficult study 2D ECHO LV Diastolic Diameter PLAX 5.9 cm 4.2 - 5.9 / 3.9 - 5.3 cm LV Systolic Diameter PLAX 4.6 cm IVS Diastolic Thickness 1.1 cm 0.6 - 1.0 / 0.6 - 0.9 cm LVPW Diastolic Thickness 1.1 cm 0.6 - 1.0 / 0.6 - 0.9 cm LV Relative Wall Thickness 0.4 RV Internal Dim ED PLAX 3.4 cm LA Systolic Diameter LX 3.9 cm 3.0 - 4.0 / 2.7 - 3.8 cm M-MODE LV Diastolic Diameter MM 6.5 cm 4.2 - 5.9 / 3.9 - 5.3 cm LV Systolic Diameter MM 4.9 cm LV Ejection Fraction MM Teich 46.6 % LV Cardiac Index MM Teich 4164.2 cm/minm IVS Diastolic Thickness MM 1.1 cm 0.6 - 1.0 / 0.6 - 0.9 cm LVPW Diastolic Thickness MM 1.1 cm 0.6 - 1.0 / 0.6 - 0.9 cm LV Relative Wall Thickness MM 0.3 0.24 - 0.42 / 0.22 - 0.42 LV Mass Index MM 129.4 g/m 49 - 115 / 43 - 95 g/m Aortic Root Diameter MM 2.9 cm AV Cusp Separation MM 1.6 cm DOPPLER AV Peak Velocity 171.0 cm/s AV Peak Gradient 11.7 mmHg AV Mean Gradient 5.0 mmHg AV Velocity Time Integral 29.1 cm LVOT Peak Velocity 89.5 cm/s LVOT Peak Gradient 3.2 mmHg LVOT Velocity Time Integral 18.8 cm MV Area PHT 3.2 cm Mitral E Point Velocity 74.0 cm/s Mitral A Point Velocity 79.0 cm/s Mitral E to A Ratio 0.9 PV Peak Velocity 92.3 cm/s PV Peak Gradient 3.4 mmHg FINDINGS LEFT VENTRICLE The left ventricular systolic function is low normal with an estimated ejection fraction in the rang e of 50- 55%. Normal left ventricular size. Wall thickness is measured at the upper limits of normal. No regional wall motion abnormalities are present. RIGHT VENTRICLE Normal right ventricular size and systolic function. LEFT ATRIUM The left atrial size is normal. RIGHT ATRIUM The right atrial size is normal. ATRIAL SEPTUM Normal atrial septal thickness without atrial level shunting by limited color doppler interrogation. AORTA The aortic root and proximal ascending aorta are normal in size on limited imaging. MITRAL VALVE Structurally normal mitral valve. No mitral valve stenosis or regurgitation. AORTIC VALVE Trileaflet aortic valve. The aortic valve prosthesis is normal to two-dimensional, color flow and Doppler interrogation. Aortic valve mean gradient is 5 mmHg. TRICUSPID VALVE Structurally normal tricuspid valve. No tricuspid valve stenosis or regurgitation. PULMONARY VALVE Trivial pulmonary valve regurgitation. VESSELS The inferior vena cava is normal in size. PERICARDIUM No pericardial effusion. David Fortune MD, FACC, [facility] [place] (Electronically Signed) Final Date:14 May 2017 15:10
[2017-05-14] MEDS: CARVEDILOL 3.125 MG TAB PO SCH ×2 (15:14→20:13)
[2017-05-14] MEDS: PANTOPRAZOLE SOD 20 MG DELAYED RELEASE TAB PO SCH (15:14)
[2017-05-14] MEDS: LISINOPRIL 10 MG TAB PO SCH (15:14)
[2017-05-14] MEDS: ASPIRIN EC 81 MG TABEC PO SCH (15:15)
[2017-05-14] MEDS ORDERED: ATORVASTATIN 40 MG TAB PO SCH (21:00)
[2017-05-15] MEDS ORDERED: LEVOTHYROXINE SODIUM 75 MCG TAB PO SCH (06:00)
[2017-05-15] MEDS ORDERED: LEVOTHYROXINE SODIUM 100 MCG TAB PO SCH (06:00)
[2017-05-15] MEDS: HEPARIN SODIUM - SQ 10,000 UNITS/ML VIAL SQ SCH (06:02)
[2017-05-15 07:28] LABS: BASOPHIL % 0.6 % (0.0-2.0); EOSINOPHIL # 0.3 TH/MM3 (0-0.4); EOSINOPHIL % 3.5 % (0.0-4.0); HEMATOCRIT 39.5 % (39.0-51.0); LYMPH % 34.6 % (9.0-44.0); LYMPHOCYTE # 2.6 TH/MM3 (1.0-4.8); MEAN CELL VOLUME 88.5 FL (80.0-100.0); MEAN CORPUSCULAR HEMOGLOBIN 29.1 PG (27.0-34.0); MEAN CORPUSCULAR HGB CONC 32.9 % (32.0-36.0); MEAN PLATELET VOLUME 8.8 FL (7.0-11.0); MONO % 7.3 % (0.0-8.0); MONOCYTE # 0.5 TH/MM3 (0-0.9); PLATELET COUNT 161 TH/MM3 (150-450); RED BLOOD COUNT 4.46 MIL/MM3 (4.50-5.90); RED CELL DISTRIBUTION WIDTH 14.7 % (11.6-17.2); WHITE BLOOD COUNT 7.4 TH/MM3 (4.0-11.0)
--- NOTE | 2017-05-15 07:30 | HHI.PR ---
Subjective Remarks In the chair appears to not acute distress. Says he is not nauseated did not vomit. Tolerates food. No fever or chills. Feels comfortable to go Objective Vitals Vital Signs Date Time Temp Pulse Resp B/P (MAP) Pulse Ox O2 Delivery O2 Flow Rate FiO2 05/14/17 20:00 97.2 66 18 156/74 (101) 95 05/14/17 20:00 71 143/72 (95) 05/14/17 20:00 59 05/14/17 17:34 97.8 68 16 186/90 (122) 95 05/14/17 12:31 97.7 65 16 183/85 (117) 94 05/14/17 08:48 96.7 61 16 170/79 (109) 94 I/O 05/14/17 05/14/17 05/14/17 05/15/17 05/15/17 05/15/17 07:00 15:00 23:00 07:00 15:00 23:00 Intake Total 420 ml 802 ml Output Total 550 ml Balance -130 ml 802 ml Intake Oral 420 ml 800 ml IV Total 2 ml Output Urine Total 550 ml # Voids 1 2 # Bowel Movements 1 Result Diagram: 05/15/17 0651 05/13/17 0440 Imaging Last Impressions Head CT 05/12/17 1124 Signed Impressions: Service Date/Time: Friday, May 12, 2017 11:56 - CONCLUSION: Lacunar infarct right basal ganglia, likely old. No other abnormality seen. Leonardo Alvarado MD Chest X-Ray 05/12/17 1124 Signed Impressions: Service Date/Time: Friday, May 12, 2017 11:43 - CONCLUSION: 1. Heart valve replacement. 2. Clear lungs. Leonardo Alvarado MD Renal Ultrasound 05/12/17 0000 Signed Impressions: Service Date/Time: Friday, May 12, 2017 19:41 - CONCLUSION: 1. Nonobstructing right renal calculus. Renal ultrasound otherwise unremarkable. Jose Guadalupe Block MD Lung Scan- Nuclear Medicine 05/12/17 0000 Signed Impressions: Service Date/Time: Friday, May 12, 2017 15:21 - CONCLUSION: Probability scan for pulmonary embolus. Brad Fleming MD ADDENDUM: Please note, conclusion should read low probability scan for pulmonary embolus Brad Fleming MD Hip and Pelvis X-Ray 05/12/17 0000 Signed Impressions: Service Date/Time: Friday, May 12, 2017 21:39 - CONCLUSION: 1. No acute bony abnormality. Jose Guadalupe Block MD Head Magnetic Resonance Angiography 05/12/17 0000 Signed Impressions: Service Date/Time: Friday, May 12, 2017 22:10 - CONCLUSION: 1. 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 Mild to moderate stenosis left posterior cerebral artery. No other stenosis identified. Jose Guadalupe Block MD Carotid Artery Ultrasound 05/12/17 0000 Signed Impressions: Service Date/Time: Friday, May 12, 2017 19:17 - CONCLUSION: 1. Mild bilateral plaque formation the carotid arteries. No hemodynamically significant stenosis. Vertebral artery flow is antegrade. Jose Guadalupe Block MD Brain MRI 05/12/17 0000 Signed Impressions: Service Date/Time: Friday, May 12, 2017 22:10 - CONCLUSION: 1. No acute findings. Remote lacunar infarct right basal ganglia. No recent infarct, mass effect or shift. Jose Guadalupe Block MD Objective Remarks GENERAL: This is an overweight elderly male patient, in no apparent distress. SKIN: No rashes. Cool and dry. HEAD: Old shrapnel injury noted to forehead. Normocephalic. CARDIOVASCULAR: Regular rate and rhythm without murmurs, gallops, or rubs. Trace lower extremity edema. RESPIRATORY: Breath sounds with coarse upper airway sounds, equal bilaterally. GASTROINTESTINAL: Abdomen soft, non-tender, nondistended. No guarding. MUSCULOSKELETAL: Extremities without clubbing, cyanosis. No calf tenderness. Left hip painful with movement, weight bearing. No gross deformity/leg shortening/external rotation noted. NEUROLOGICAL: Awake and alert. Motor and sensory grossly within normal limits. Normal speech. Procedures None A/P Problem List: (1) Postural dizziness with presyncope ICD Code: R42 - Dizziness and giddiness; R55 - Syncope and collapse Status: Acute (2) MACARIO (acute kidney injury) ICD Code: N17.9 - Acute kidney failure, unspecified Status: Acute (3) Elevated troponin ICD Code: R74.8 - Abnormal levels of other serum enzymes Status: Acute Assessment and Plan Mr. 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 He was found to have acute kidney injury, elevated troponin I, lateral T-wave inversion on 12-lead EKG and is admitted to the hospitalist team for evaluation and management. Elevated cardiac enzymes possibly secondary to acute kidney injury versus ACS. Patient is asymptomatic no chest pain. Lateral T-wave inversion on 12-lead on initial EKG -awaiting subsequent EKGs for trending -follow results Serial cardiac enzymes to rule out ACS -initial troponin I was 0.13 and second troponin is trending downward at 0.11 -await third cardiac enzyme set and follow results Continuous cardiac telemetry to monitor for arrhythmia Dizziness with fall - Chronic vertigo duration 6 months due to hearing loss in the right ear according to the patient The patient fell on 05/10/2017 -states he got dizzy accompanied by nausea and fell backwards and landed on his buttock, denies loss of consciousness and denies hitting head had an episode of feeling cold and clammy while up to urinate in the bathroom on Thursday resulting in ER evaluation Check echocardiogram to check cardiac structure and function, Holter monitor to check for contributing arrhythmias overtime, EEG to rule out seizure activity, carotid ultrasound to rule out carotid artery stenosis Head CT showed likely old lacunar infarct right basal ganglia with no other abnormalities seen. Will order MRI/MRA of the brain to further evaluate Consult neurology; appreciate assistance and recommendations Acute kidney injury likely secondary to dehydration.. Kidney function improving with IVF BUN 35, creatinine 1.97, estimated GFR 33 -significantly worsened compared to 2014 labs and patient denies any current problems with kidneys -does not see a insurance service representative Fluid bolus given in the ED We will recheck kidney function in a.m. and follow results Follow-up results of renal ultrasound Avoid nephrotoxins May want nephrology consultation if MACARIO persists Type 2 Diabetes Mellitus We will hold home Glucotrol and metformin for now (med rec still not completed but would hold regardless at this time) Accu-Cheks before meals and at bedtime with low-dose NovoLog sliding scale coverage Hypoglycemia protocol Monitor trends and blood glucose readings and adjust treatments as indicated Abnormal urinalysis Urine culture pending; await results -will hold off on antibiotics for now as patient does not have an elevated white count and is afebrile. Urine cultures with normal francine Bronchitis suspected Chest x-ray negative for acute cardiopulmonary process Duo nebulizers every 4 hours as needed for shortness of breath/wheezing Right hip pain status post fall at home We will check x-ray of hip but suspect this may be more of an acute on chronic process-arthritic pain with exacerbation Patient does not want narcotic medications will add Tylenol as needed for pain AST elevation of undetermined significance Will repeat CMP in a.m. and follow results DVT prophylaxis -Heparin 5000 units subcu every 8 hours Nursing to complete medication reconciliation so that patient's home meds can be restarted - RN was in a trauma at the time of my visit - order written and RN to complete and notify medical team when completed Discussed Condition With Patient, nurse BOUBACAR today , kidney function improved, clinically improving. Feels comfortable to go home discharge home with home health in stable condition to follow-up with PCP and consultants as outpatient Joan Loaiza MD May 15, 2017 07:30
--- NOTE | 2017-05-15 07:32 | HHI.DS ---
Discharge Summary Admission Date May 12, 2017 at 17:21 Discharge Date: May 15, 2017 Admitting Diagnosis MACARIO, dehydration, vertigo (1) Postural dizziness with presyncope ICD Code: R42 - Dizziness and giddiness; R55 - Syncope and collapse Status: Acute (2) MACARIO (acute kidney injury) ICD Code: N17.9 - Acute kidney failure, unspecified Status: Acute (3) Elevated troponin ICD Code: R74.8 - Abnormal levels of other serum enzymes Status: Acute Procedures None Brief History - From Admission Mr. 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 He was found to have acute kidney injury, elevated troponin I, lateral T-wave inversion on 12-lead EKG and is admitted to the hospitalist team for evaluation and management. The patient returned from an 8 day cruise to [facility] on Thursday morning and traveled back home and arrived around 10 PM at night. Following his arrival back home, the patient fell, 05/10/2017, states he got dizzy accompanied by nausea and fell backwards and landed on his buttock, denies loss of consciousness and denies hitting head. His called EMS at that time and he refused transport to the hospital. Then, he had an episode of feeling cold and clammy while up to urinate in the bathroom on Thursday and his again summoned EMS and he was transported to the ER. He reports his symptoms have been present for 2 days. He states that he he has been weak and could barely move on Thursday. He has some right hip pain status post fall on Thursday. He also reports severe fatigue. He states that his nausea was relieved in the emergency room with medication given. He was given meclizine, Zofran, and a normal saline fluid bolus in the ED. He denies any chest pain, shortness of breath, palpitations, or vomiting. He reports chronic daily diarrhea related to poor food choices without hematochezia or black stools. He has no recorded fevers but states he has been feeling "" warm. Denies chills. He denies any vomiting and reports chronic peripheral edema that is relieved with compression stockings. CBC/BMP: 05/15/17 0651 05/13/17 0440 Significant Findings Laboratory Tests Test 05/12/17 11:06 05/12/17 17:10 05/12/17 18:25 05/13/17 04:40 Red Blood Count 4.43 MIL/MM3 (4.50-5.90) Platelet Count 134 TH/MM3 (150-450) 140 TH/MM3 (150-450) Eosinophils (%) (Auto) 5.5 % (0.0-4.0) Activated Partial Thromboplast Time 24.1 SEC (24.3-30.1) D-Dimer Quantitative (PE/DVT) 1.40 MG/L FEU (0.00-0.50) Blood Urea Nitrogen 35 MG/DL (7-18) 34 MG/DL (7-18) Creatinine 1.97 MG/DL (0.60-1.30) 1.42 MG/DL (0.60-1.30) Random Glucose 276 MG/DL (74-106) 129 MG/DL (74-106) Albumin 3.1 GM/DL (3.4-5.0) 3.1 GM/DL (3.4-5.0) Calcium Level 8.2 MG/DL (8.5-10.1) 8.4 MG/DL (8.5-10.1) Aspartate Amino Transf (AST/SGOT) 59 U/L (15-37) 57 U/L (15-37) Estimat Glomerular Filtration Rate 33 ML/MIN (>89) 49 ML/MIN (>89) Troponin I 0.13 NG/ML (0.02-0.05) 0.11 NG/ML (0.02-0.05) 0.14 NG/ML (0.02-0.05) Urine Color DARK-YELLOW (YELLW/STRAW) Urine Turbidity HAZY (CLEAR) Urine Specific [place] 1.037 (1.002-1.035) Urine Protein 100 mg/dL (NEG-TRACE) Urine Leukocyte Esterase MOD (NEG) Urine WBC 10 /hpf (0-5) Urine Bacteria OCC /hpf (NONE) Phosphorus Level 2.3 MG/DL (2.5-4.9) Potassium Level 3.3 MEQ/L (3.5-5.1) Test 05/15/17 06:51 Red Blood Count 4.46 MIL/MM3 (4.50-5.90) Imaging Last Impressions Head CT 05/12/17 1124 Signed Impressions: Service Date/Time: Friday, May 12, 2017 11:56 - CONCLUSION: Lacunar infarct right basal ganglia, likely old. No other abnormality seen. Leonardo Alvarado MD Chest X-Ray 05/12/17 1124 Signed Impressions: Service Date/Time: Friday, May 12, 2017 11:43 - CONCLUSION: 1. Heart valve replacement. 2. Clear lungs. Leonardo Alvarado MD Renal Ultrasound 05/12/17 0000 Signed Impressions: Service Date/Time: Friday, May 12, 2017 19:41 - CONCLUSION: 1. Nonobstructing right renal calculus. Renal ultrasound otherwise unremarkable. Jose Guadalupe Block MD Lung Scan- Nuclear Medicine 05/12/17 0000 Signed Impressions: Service Date/Time: Friday, May 12, 2017 15:21 - CONCLUSION: Probability scan for pulmonary embolus. Brad Fleming MD ADDENDUM: Please note, conclusion should read low probability scan for pulmonary embolus Brad Fleming MD Hip and Pelvis X-Ray 05/12/17 0000 Signed Impressions: Service Date/Time: Friday, May 12, 2017 21:39 - CONCLUSION: 1. No acute bony abnormality. Jose Guadalupe Block MD Head Magnetic Resonance Angiography 05/12/17 0000 Signed Impressions: Service Date/Time: Friday, May 12, 2017 22:10 - CONCLUSION: 1. 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 Mild to moderate stenosis left posterior cerebral artery. No other stenosis identified. Jose Guadalupe Block MD Carotid Artery Ultrasound 05/12/17 0000 Signed Impressions: Service Date/Time: Friday, May 12, 2017 19:17 - CONCLUSION: 1. Mild bilateral plaque formation the carotid arteries. No hemodynamically significant stenosis. Vertebral artery flow is antegrade. Jose Guadalupe Block MD Brain MRI 3/20/18 0000 Signed Impressions: Service Date/Time: Friday, May 12, 2017 22:10 - CONCLUSION: 1. No acute findings. Remote lacunar infarct right basal ganglia. No recent infarct, mass effect or shift. Jose Guadlaupe Block MD PE at Discharge GENERAL: Alert, oriented 3, NAD. SKIN: Warm and dry. HEAD: Normocephalic. EYES: No scleral icterus. No injection or drainage. NECK: Supple, trachea midline. No JVD or lymphadenopathy. CARDIOVASCULAR: Regular rate and rhythm without murmurs, gallops, or rubs. RESPIRATORY: Breath sounds equal bilaterally. No accessory muscle use. GASTROINTESTINAL: Abdomen soft, non-tender, nondistended. MUSCULOSKELETAL: No cyanosis, or edema. BACK: Nontender without obvious deformity. No CVA tenderness. Hospital Course Mr. 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 He was found to have acute kidney injury, elevated troponin I, lateral T-wave inversion on 12-lead EKG and is admitted to the hospitalist team for evaluation and management. Elevated cardiac enzymes possibly secondary to acute kidney injury versus ACS. Patient is asymptomatic no chest pain. Lateral T-wave inversion on 12-lead on initial EKG -awaiting subsequent EKGs for trending -follow results Serial cardiac enzymes to rule out ACS -initial troponin I was 0.13 and second troponin is trending downward at 0.11 -await third cardiac enzyme set and follow results Continuous cardiac telemetry to monitor for arrhythmia 2D echo reviewed normal ejection fraction 55% Dizziness with fall - Chronic vertigo duration 6 months due to hearing loss in the right ear according to the patient The patient fell on 05/10/2017 -states he got dizzy accompanied by nausea and fell backwards and landed on his buttock, denies loss of consciousness and denies hitting head had an episode of feeling cold and clammy while up to urinate in the bathroom on Thursday resulting in ER evaluation Check echocardiogram to check cardiac structure and function, Holter monitor to check for contributing arrhythmias overtime, EEG to rule out seizure activity, carotid ultrasound to rule out carotid artery stenosis Head CT showed likely old lacunar infarct right basal ganglia with no other abnormalities seen. MRI/MRA of the brain reviewed, no acute findings Consult neurology; appreciate assistance and recommendations Acute kidney injury likely secondary to dehydration.. Kidney function improving with IVF BUN 35, creatinine 1.97, estimated GFR 33 -significantly worsened compared to 2014 labs and patient denies any current problems with kidneys -does not see a respiratory care instructor Fluid bolus given in the ED Monitor kidney function Follow-up results of renal ultrasound Avoid nephrotoxins May want nephrology consultation if MACARIO persists. Kidney function improved significantly. Type 2 Diabetes Mellitus We will hold home Glucotrol and metformin for now (med rec still not completed but would hold regardless at this time) Accu-Cheks before meals and at bedtime with low-dose NovoLog sliding scale coverage Hypoglycemia protocol Monitor trends and blood glucose readings and adjust treatments as indicated Abnormal urinalysis Urine culture pending; await results -will hold off on antibiotics for now as patient does not have an elevated white count and is afebrile. Urine cultures with normal francine. Bronchitis suspected Chest x-ray negative for acute cardiopulmonary process Duo nebulizers every 4 hours as needed for shortness of breath/wheezing Right hip pain status post fall at home We will check x-ray of hip but suspect this may be more of an acute on chronic process-arthritic pain with exacerbation Patient does not want narcotic medications will add Tylenol as needed for pain AST elevation of undetermined significance Will repeat CMP in a.m. and follow results DVT prophylaxis -Heparin 5000 units subcu every 8 hours Nursing to complete medication reconciliation so that patient's home meds can be restarted - RN was in a trauma at the time of my visit - order written and RN to complete and notify medical team when completed Discussed Condition With Patient, nurse BOUABCAR today , kidney function improved, clinically improving. Feels comfortable to go home discharge home with home health in stable condition to follow-up with PCP and consultants as outpatient Pt Condition on Discharge: Stable Discharge Disposition: Disch w/ Home Health Serv Discharge Time: > 30 minutes Discharge Instructions DIET: Follow Instructions for: Heart Healthy Diet, Diabetic Diet Activities you can perform: Regular-No Restrictions Follow up Referrals: PCP Follow-up - 2-3 Days Continued Medications: Albuterol Sulfate (Proventil Mdi) 17 Gm Aero 2 PUFF INH Q6H PRN for ALLERGIES, #1 BOX Aspirin 81 mg Tab (Aspirin 81 mg Tab) 81 Mg Tab 1 TAB PO DAILY Atorvastatin (Lipitor 80 Mg Tab) 80 Mg Tab 80 MG PO HS, #30 TAB Carboxymethylcellulose Sod (Refresh Tears) 300 Drop/15 Ml Bailey 1 DROP OP BID Carvedilol 6.25 mg (Carvedilol 6.25 mg) 6.25 Mg Tab 0.5 TAB PO BID, TAB Ferrous Sulfate (Ferrous Sulfate) 325 Mg (65 Mg Iron) Tablet 325 MG PO EVERY OTHER DAY for Nutritional Supplement, #30 TAB 0 Refills Glipizide (Glipizide) 10 Mg Tab 20 MG PO BIDAC for Blood Sugar Management, #60 TAB 0 Refills Take 30 minutes before a meal Levothyroxine Sodium (Levothyroxine 175 mcg) 175 Mcg Tab 1 TAB PO DAILY, TAB Lisinopril (Prinivil) 10 Mg Tab 10 MG PO DAILY, TAB Magnesium (Magnesium Sulfate) 70 Mg Cap 70 MG PO DAILY, CAP Metformin ER 24 HR (Metformin ER 24 HR) 1,000 Mg Tab 1000 MG PO BIDPC, TAB Multiple Vitamin (Multivitamin) 1 Tab Tab 1 TAB PO DAILY, TAB Omeprazole (Hm Omeprazole) 20 Mg Tab 20 MG PO DAILY, TAB Joan Loaiza MD May 15, 2017 07:32
[2017-05-15 07:40] LABS: CALCIUM 8.5 MG/DL (8.5-10.1)
[2017-05-15 07:41] LABS: BICARBONATE 27.1 MEQ/L (21.0-32.0)
[2017-05-15 07:44] LABS: CREATININE 1.2 MG/DL (0.60-1.30)
--- NOTE | 2017-05-15 07:54 | HHI.FF ---
Face to Face Verification Diagnosis: (1) Obese (2) Sacral decubitus ulcer (3) Hypoglycemia (4) Bronchitis (5) Dehydration (6) Diabetes mellitus (7) Syncope (8) Elevated troponin (9) MACARIO (acute kidney injury) (10) Heart failure due to valvular disease (11) Postural dizziness with presyncope (12) Status post aortic valve replacement with bioprosthetic valve Physical Therapy Order: Evaluate and Treat Home Health Nursing Order: Medical education Signs/symptoms of disease process Medication education-adverse effect Nursing assessment with vital signs I have seen patient Jorge Sanz on 05/15/17. My clinical findings support the need for the requested home health care services because: Ltd mobility - disease progression Patient has SOB I certify that my clinical findings support that this patient is homebound because: Post-op weakness Impaired cognitive ability/safety Unsteady gait/balance Joan Loaiza MD May 15, 2017 07:54
[2017-05-15 08:00] VITALS: BP 138/65; PULSE 61; RESP 20; TEMP 97; O2SAT 95
[2017-05-15] MEDS: INSULIN ASPART SUPPLEMENTAL SCALE SQ SCH ×2 (08:00→12:00)
[2017-05-15] MEDS: FLUDROCORTISONE ACETATE 0.1 MG TAB PO SCH (08:26)
[2017-05-15] MEDS: LISINOPRIL 10 MG TAB PO SCH (08:26)
[2017-05-15] MEDS: CARVEDILOL 3.125 MG TAB PO SCH (08:26)
[2017-05-15] MEDS: ASPIRIN EC 81 MG TABEC PO SCH (08:26)
[2017-05-15] MEDS: PANTOPRAZOLE SOD 20 MG DELAYED RELEASE TAB PO SCH (08:26)
[2017-05-15] MEDS: SODIUM CHLORIDE 0.9% FLUSH 10 ML FLUSH IV FLUSH SCH (08:28)
[2017-05-15] MEDS: CARBOXYMETHYLCELL SOD 0.5% OPTH SOLN 15 ML BTL EACH EYE SCH (08:28)
[2017-05-15] MEDS ORDERED: MAGNESIUM OXIDE 400 MG TAB PO SCH (11:00)
[2017-05-15 12:00] VITALS: BP 152/67; PULSE 59; RESP 22; TEMP 96.7; O2SAT 95
[2017-05-16] MEDS ORDERED: FERROUS SULFATE 325 MG (65 MG ELEMENTAL IRON) TAB PO SCH (09:00)
== END 2017-05-15 13:48 | disposition home health service (06) | DRG 684 ==
LOC: NEPC 10:33 → NEDA 17:21 → NEDH 21:25 → PH3A 05-13 14:11
PROVIDERS: ADMIT Hospitalist; ATTEND Hospitalist
DX: N17.9 Acute kidney failure, unspecified (principal); I66.01 Occlusion and stenosis of right middle cerebral artery; E11.41 Type 2 diabetes mellitus with diabetic mononeuropathy; I11.0 Hypertensive heart disease with heart failure; I50.9 Heart failure, unspecified; E86.0 Dehydration; E03.9 Hypothyroidism, unspecified; I66.22 Occlusion and stenosis of left posterior cerebral artery; R74.8 Abnormal levels of other serum enzymes; E66.3 Overweight; J40 Bronchitis, not specified as acute or chronic; I95.1 Orthostatic hypotension; M25.551 Pain in right hip; E78.00 Pure hypercholesterolemia, unspecified; H91.91 Unspecified hearing loss, right ear; K52.9 Noninfective gastroenteritis and colitis, unspecified; G47.30 Sleep apnea, unspecified; M19.90 Unspecified osteoarthritis, unspecified site; R11.0 Nausea; F32.9 Major depressive disorder, single episode, unspecified; F41.9 Anxiety disorder, unspecified; W19.XXXA Unspecified fall, initial encounter; Z68.39 Body mass index [BMI] 39.0-39.9, adult; Z79.84 Long term (current) use of oral hypoglycemic drugs; Z82.49 Family history of ischemic heart disease and other diseases of the circulatory system; Z85.828 Personal history of other malignant neoplasm of skin; Z87.891 Personal history of nicotine dependence; Z91.14 Patient's other noncompliance with medication regimen; Z95.3 Presence of xenogenic heart valve
CPT/HCPCS: 70450; 70544; 70551; 71046; 73502; 76775; 78582; 80048; 80053; 80307; 81001; 82570; 82948; 83735; 83880; 84100; 84300; 84484; 85025; 85379; 85610; 85730; 87086; 93005; 93306; 93880; 95819; 96361; 96374; A9540; A9567; J1644; J1815; J2405; J7040

== ENCOUNTER 2018-04-13 08:26 | Inpatient (IN) ==
--- NOTE | 2018-04-13 10:59 | ED ---
HPI General Chief Complaint: Recheck/Abnormal Lab/Rx Stated Complaint: Sent my doctor Time Seen by Provider: 04/13/18 10:35 Source: patient Mode of arrival: ambulatory Limitations: no limitations History of Present Illness HPI narrative: Mr. Sanz comes in stating [facility] to get [facility]checked out" here at [facility]. Patient continues to give a history of low blood sugars running in the 42 or 50 he is on pills not on any insulin shots. Patient states that he has not taken any medications for the last [address] [facility] that contacted him, phone number was [phone] extension [phone]. This number was called and message left with front end manager. Patient has no complaint at this time Dr. Robbins [place] No allergies Past medical history includes hypertension hypercholesterolemia AK without stent , diabetes, neuropathy which is affecting his ability to walk and that is why he uses a wheelchair to go long distances. MD complaint: Reports abnormal lab Returns today for: called because of abnormal lab/test Context: Reports called for abnormal lab result Related Data Home Medications Medication Instructions Recorded Confirmed albuterol sulfate 2 puff INHALATION Q6H PRN 04/13/18 04/13/18 aspirin 81 mg PO DAILY 04/13/18 04/13/18 atorvastatin [Lipitor] 20 mg PO QPM 04/13/18 04/13/18 glipizide 20 mg PO BID 04/13/18 04/13/18 hydrochlorothiazide 25 mg PO DAILY 04/13/18 04/13/18 ibuprofen 600 mg PO BID PRN 04/13/18 04/13/18 levothyroxine [Synthroid] 75 mcg PO DAILY 04/13/18 04/13/18 losartan 100 mg PO DAILY 04/13/18 04/13/18 metformin 1,000 mg PO BID 04/13/18 04/13/18 metoprolol succinate 25 mg PO DAILY 04/13/18 04/13/18 multivitamin 1 tab PO DAILY 04/13/18 04/13/18 omeprazole 20 mg PO BID 04/13/18 04/13/18 terazosin 2 mg PO HS 04/13/18 04/13/18 Allergies Allergy/AdvReac Type Severity Reaction Status Date / Time No Known Allergies Allergy Verified 04/13/18 08:34 Review of Systems ROS: all other systems reviewed are negative PMFSH History History Provided By: Patient Medical History Medical History Agent orange exposure (Acute) Diabetes (Acute) HTN (hypertension) (Acute) High cholesterol (Acute) Hypothyroidism (Acute) Myocardial infarction (Acute) Neuropathy (Acute) Surgical History Surgical History Hx of ascending aorta replacement (Acute) Social History Social History Smoking Status: Former smoker How Often Do You Have a Drink Containing Alcohol: Never Recent Travel in [facility] within the Last 8 Weeks: No Recent Out of Country Travel within the Last 8 Weeks: No Exam Narrative Exam Narrative: GENERAL: Elderly male in wheelchair in no apparent distress. SKIN: Warm and dry. HEAD: Atraumatic. Normocephalic. EYES: Pupils equal and round. No scleral icterus. No injection or drainage. ENT: No nasal bleeding or discharge. Mucous membranes pink and moist. NECK: Trachea midline. No JVD. CARDIOVASCULAR: Regular rate and rhythm. no rubs or gallops RESPIRATORY: No accessory muscle use. Clear to auscultation. Breath sounds equal bilaterally. GASTROINTESTINAL: Abdomen soft, non-tender, nondistended. No rebound or guarding MUSCULOSKELETAL: Extremities without clubbing, cyanosis, or edema. No obvious deformities. NEUROLOGICAL: Awake and alert. No obvious cranial nerve deficits. Motor grossly within normal limits. Five out of 5 muscle strength in the arms and legs. Normal speech. PSYCHIATRIC: Appropriate mood and affect; insight and judgment normal. Course Initial Documented Vital Signs Temperature 97.8 F 04/13/18 08:34 Pulse Rate 74 04/13/18 08:34 Respiratory Rate 18 04/13/18 08:34 Blood Pressure 209/85 H 04/13/18 08:34 Pulse Oximetry 97 04/13/18 08:34 Last Documented Vital Signs Temperature 97.8 F 04/13/18 08:34 Pulse Rate 74 04/13/18 08:34 Respiratory Rate 18 04/13/18 08:34 Blood Pressure 209/85 H 04/13/18 08:34 Pulse Oximetry 97 04/13/18 08:34 Medical Decision Making [facility] Narrative Medical Screen Exam Complete: Yes Emergency Medical Condition: Yes Medical Records Medical records reviewed: Yes I reviewed the patient's medical records. Upon review of a discharge summary from May 12-2017. Patient was evaluated for syncope and was found to have acute kidney failure. 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 During that visit in April 2017 the patient had elevated cardiac enzymes which were thought to be either secondary to the acute kidney injury versus that of a non- ST elevation AK. Patient had an echo which had a normal ejection fraction of 55 %. During this stay the patient had carotid artery ultrasound which was read as mild bilateral plaque formation in the carotid arteries but no hemodynamic significant stenosis. Head MRI shows focal moderate stenosis of distal right MCA. Mild to moderate stenosis of left [employer]. Hip and pelvis x-ray no acute bony abnormality. Lung VQ scan read as low probability scan for pulmonary embolus. Renal ultrasound read as nonobstructing right renal calculus. Chest x -ray read as heart valve replacement clear lungs. Head CT read as lacunar infarct right basal ganglia likely old no other abnormality seen. Discussed case with Dr. Robbins from the [place], who stated that he noticed a creatinine of 6 on April 09 blood work, this was concerning as his previous creatinine was 0.66, patient was advised to follow-up in the emergency department for further evaluation. The [facility] also commented that recently he has had a change in his glipizide down due to the patient stating he has had previous hypoglycemic episodes. I made the [place] doctor aware that the patient mentioned to me that he did not take his medications at all during the past 3 days. ------ Patient initially seen and evaluated by physician in triage who ordered work up. Patient has been transferred to medical pod where I have reassessed patient and reviewed results. CBC shows white blood cell count 11.1, mild anemia with hemoglobin 11.2, hematocrit 33.3. CMP shows acute kidney injury with creatinine 3.80, GFR 16, BUN 39. Glucose is 140. Lipase is elevated at 609. Urinalysis shows small occult blood, few mucus, otherwise unremarkable. EKG shows sinus bradycardia with ventricular rate of 54 bpm, no acute ST elevations or depressions. Patient will be admitted for acute kidney injury. I spoke with Dr. Stock [facility] who accepts patient to his service. Lab Data Result diagrams: 04/13/18 11:13 04/13/18 11:13 Lab Results 04/13/18 04/13/18 04/13/18 Range/Units 11:13 11:13 11:13 WBC 11.1 H (4.0-11.0) th/mm3 RBC 3.82 L (4.50-5.90) mil/mm3 Hgb 11.2 L (13.0-17.0) gm/dL Hct 33.3 L (39.0-51.0) % MCV 87.2 (80.0-100.0) fL MCH 29.3 (27.0-34.0) pg MCHC 33.7 (32.0-36.0) % RDW 14.7 (11.6-17.2) % Plt Count 285 (150-450) th/mm3 MPV 7.9 (7.0-11.0) fL Neut % (Auto) 66.3 (16.0-70.0) % Lymph % (Auto) 19.6 (9.0-44.0) % Rooks % (Auto) 7.9 (0.0-8.0) % Eos % (Auto) 5.4 H (0.0-4.0) % Baso % (Auto) 0.8 (0.0-2.0) % Neut # (Auto) 7.3 (1.8-7.7) th/mm3 Lymph # (Auto) 2.2 (1.0-4.8) th/mm3 Rooks # (Auto) 0.9 (0.0-0.9) th/mm3 Eos # (Auto) 0.6 H (0.0-0.4) th/mm3 Baso # (Auto) 0.1 (0.0-0.2) th/mm3 WBC Differential . Differential Comment Auto diff final Sodium 142 (136-145) meq/L Potassium 4.1 (3.5-5.1) meq/L Chloride 106 (98-107) meq/L Carbon Dioxide 25.8 (21.0-32.0) meq/L Anion Gap 10 (5-15) meq/L BUN 39 H (7-18) mg/dL Creatinine 3.80 H (0.60-1.30) mg/dL Estimated GFR 16 L (>89) mL/min Random Glucose 140 H (74-106) mg/dL Calcium 9.5 (8.5-10.1) mg/dL Total Bilirubin 0.5 (0.2-1.0) mg/dL AST 24 (15-37) U/L ALT 33 (12-78) U/L Alkaline Phosphatase 98 (45-117) U/L Total Protein 8.8 H (6.4-8.2) g/dL Albumin 3.4 (3.4-5.0) g/dL Lipase 609 H (73-393) U/L Urine Color Yellow (Yellw/Straw) Urine Clarity Clear (Clear) Urine pH 6.0 (5.0-8.5) Ur Specific [place] 1.008 (1.002-1.035) Urine Protein Negative (Neg-Trace) mg/dL Urine Glucose (UA) Negative (Negative) mg/dL Urine Ketones Negative (Negative) mg/dL Urine Occult Blood Small H (Negative) Urine Nitrate Negative (Negative) Urine Bilirubin Negative (Negative) Urine Urobilinogen Less than 2 (Less than 2) mg/dL Ur Leukocyte Esterase Negative (Negative) Urine RBC 1 (0-3) /hpf Urine WBC 2 (0-5) /hpf Ur Squamous Epith Cells <1 (0-5) /hpf Urine Mucus Few H (Occasional) /lpf Micro UA Comment Culture not ind Ur Microscopic Review Not Reportable Urine Culture Comments Culture not ind Discharge Plan Discharge Disposition Patient Disposition: ED Admit(ED Internal Use Only) Discharge Condition Condition: Stable Discharge Order Discharge Orders: ED Use Only Admit Order (Routine); Ordered 04/13/18 Ordered By: Kezia Mcbride Discharge Details Diagnosis: Acute kidney injury Physicians Team ED Provider: Luis Henderson ED Midlevel Provider: Kezia Mcbride Primary Care Provider: [facility],Physician 's Rxs /Orders / Referrals /Forms Prescriptions: No Action atorvastatin [Lipitor] 20 mg Tablet 20 mg PO QPM RF: 0 glipizide 10 mg Tablet 20 mg PO BID RF: 0 levothyroxine [Synthroid] 75 mcg Tablet 75 mcg PO DAILY RF: 0 terazosin 2 mg Capsule 2 mg PO HS RF: 0 metformin 1,000 mg Tablet 1,000 mg PO BID RF: 0 hydrochlorothiazide 25 mg Tablet 25 mg PO DAILY RF: 0 losartan 100 mg Tablet 100 mg PO DAILY RF: 0 metoprolol succinate 50 mg Tablet Extended Release 24 Hr 25 mg PO DAILY RF: 0 aspirin 81 mg Tablet,Delayed Release (Dr/Ec) 81 mg PO DAILY RF: 0 ibuprofen 600 mg Tablet 600 mg PO BID PRN (Reason: Pain) RF: 0 albuterol sulfate 90 mcg/actuation Hfa Aerosol Inhaler 2 puff INHALATION Q6H PRN (Reason: Shortness Of Breath) RF: 0 multivitamin Tablet 1 tab PO DAILY RF: 0 omeprazole 20 mg Tablet,Delayed Release (Dr/Ec) 20 mg PO BID RF: 0 Status ED Status: With Doctor
[2018-04-13 11:23] LABS: Baso # (Auto) 0.1 th/mm3 (0.0-0.2); Baso % (Auto) 0.8 % (0.0-2.0); Eos # (Auto) 0.6 th/mm3 (0.0-0.4); Eos % (Auto) 5.4 % (0.0-4.0); Hematocrit 33.3 % (39.0-51.0); Hemoglobin 11.2 gm/dL (13.0-17.0); Lymph # (Auto) 2.2 th/mm3 (1.0-4.8); Lymph % (Auto) 19.6 % (9.0-44.0); Mean Corpuscular HGB Conc 33.7 % (32.0-36.0); Mean Corpuscular Hemoglobin 29.3 pg (27.0-34.0); Mean Corpuscular Volume 87.2 fL (80.0-100.0); Mean Platelet Volume 7.9 fL (7.0-11.0); Mono # (Auto) 0.9 th/mm3 (0.0-0.9); Mono % (Auto) 7.9 % (0.0-8.0); Neut # (Auto) 7.3 th/mm3 (1.8-7.7); Neut % (Auto) 66.3 % (16.0-70.0); Platelet Count 285 th/mm3 (150-450); Red Blood Count 3.82 mil/mm3 (4.50-5.90); Red Cell Distribution Width 14.7 % (11.6-17.2); White Blood Count 11.1 th/mm3 (4.0-11.0)
[2018-04-13 11:34] LABS: Bilirubin,Urine Negative (Negative); Clarity,Urine Clear (Clear); Color,Urine Yellow (Yellw/Straw); Glucose,Urine (UA) Negative (Negative); Leukocyte Esterase,Urine Negative (Negative); Mucus,Urine Few /lpf (Occasional); Nitrite,Urine Negative (Negative); Specific Gravity,Urine 1.008 (1.002-1.035); Squamous Epithelial Cell,Urine <1 /hpf (0-5)
[2018-04-13 11:37] LABS: Alanine Aminotransferase 33 U/L (12-78); Albumin 3.4 g/dL (3.4-5.0); Anion Gap 10 meq/L (5-15); Aspartate Aminotransferase 24 U/L (15-37); Blood Urea Nitrogen 39 mg/dL (7-18); Calcium 9.5 mg/dL (8.5-10.1); Carbon Dioxide 25.8 meq/L (21.0-32.0); Chloride 106 meq/L (98-107); Glomerular Filtration Rate 16 mL/min (>89); Glucose,Random 140 mg/dL (74-106); Lipase 609 U/L (73-393); Potassium 4.1 meq/L (3.5-5.1); Sodium 142 meq/L (136-145)
[2018-04-13 11:40] LABS: Alkaline Phosphatase 98 U/L (45-117); Total Protein 8.8 g/dL (6.4-8.2)
[2018-04-13] MEDS ORDERED: Sod Chloride 0.9% Inj 1,000 ML IV.SIG ONE (12:15)
[2018-04-13] MEDS ORDERED: Sodium Chlor 0.9% Inj 500 ML IV.SIG SCH (13:00)
[2018-04-13] MEDS: amLODIPine 10 MG Tablet PO SCH (17:27)
[2018-04-13] MEDS ORDERED: Dextrose 50% in Water 50 ML Vial IV.PUSH PRN (18:08)
--- NOTE | 2018-04-13 18:13 | P.HPIM ---
History of Present Illness Primary Care Physician: Physician [facility] History of Present Illness: This patient is a 77 y/o Male with a dx of HTN, DLD , DM II, and hx of aortic valve replacement who presents to the ED after he was sent by his PCP for elevated serum creatinine of 6 that was done one week ago in the clinic. The patient was advised to come into the ED today because of the lab results. He says he does not drink much water at home and drinks 6-8 bottles of diet root beer per day. He takes losartan at home for HTN and was unaware that he had any kidney dysfunction. He denies any fevers or chills. No shortness of breath, no recent illness or sick contacts. PMH as mentioned above Fam hx significant for CAD Social hx patient admits to an extensive tobacco smoking and etoh abuse hx. Quit 30 yrs ago. Patient admits to using IV morphine when he was in [place]. Inpatient Certification Inpatient Certification: I certify that the inpatient services were ordered in accordance with Medicare regulations governing the order. This includes certification that hospital inpatient services are reasonable and necessary and in the case of services not specified as inpatient-only under 42 CFR 419.22(n), that they are appropriately provided as inpatient services in accordance to with the 2-midnight benchmark under 43 CFR 412.3(e) Estimated Total Length of Stay (Days): 2 Plans for Post Hospital Care: Home Review of Systems Review of Systems: all other systems reviewed are negative [facility] Medical History Medical History Agent orange exposure (Acute) Diabetes (Acute) HTN (hypertension) (Acute) High cholesterol (Acute) Hypothyroidism (Acute) Myocardial infarction (Acute) Neuropathy (Acute) Surgical History Surgical History Hx of ascending aorta replacement (Acute) Social History Social History Smoking Status: Former smoker How Often Do You Have a Drink Containing Alcohol: Never Recent Travel in [place] within the Last 8 Weeks: No Recent Out of Country Travel within the Last 8 Weeks: No Immunization History Tetanus Immunization: Unsure Medications and Allergies Allergies Allergy/AdvReac Type Severity Reaction Status Date / Time No Known Allergies Allergy Verified 04/13/18 08:34 Home Medications Medication Instructions Recorded Confirmed Type albuterol sulfate 2 puff INHALATION Q6H PRN 04/13/18 04/13/18 History arginine oxoglurate 500 mg PO DAILY 04/13/18 04/13/18 History [L-Arginine(alpha-ketoglutarat)] aspirin 81 mg PO DAILY 04/13/18 04/13/18 History atorvastatin [Lipitor] 20 mg PO QPM 04/13/18 04/13/18 History cholecalciferol (vitamin D3) 1,000 unit PO DAILY 04/13/18 04/13/18 History [Vitamin D3] coQ10 (ubiquinol) 100 mg PO DAILY 04/13/18 04/13/18 History cyanocobalamin (vitamin B-12) 1,000 mcg PO DAILY 04/13/18 04/13/18 History [Vitamin B-12] glipizide 20 mg PO BID 04/13/18 04/13/18 History hydrochlorothiazide 25 mg PO DAILY 04/13/18 04/13/18 History ibuprofen 600 mg PO BID PRN 04/13/18 04/13/18 History levothyroxine [Synthroid] 75 mcg PO DAILY 04/13/18 04/13/18 History losartan 100 mg PO DAILY 04/13/18 04/13/18 History metformin 1,000 mg PO BID 04/13/18 04/13/18 History metoprolol succinate 25 mg PO DAILY 04/13/18 04/13/18 History multivitamin 1 tab PO DAILY 04/13/18 04/13/18 History omega 2-ibs-czd-fish oil [Fish Oil] 1 cap PO DAILY 04/13/18 04/13/18 History omeprazole 20 mg PO BID 04/13/18 04/13/18 History terazosin 2 mg PO HS 04/13/18 04/13/18 History vitamin B complex 1 cap PO DAILY 04/13/18 04/13/18 History Active Medications: Active Medications Albuterol (Ventolin Hfa Inh) 2 puff INH Q6H PRN PRN Reason: Shortness Of Breath Amlodipine Besylate (Norvasc) 10 mg PO DAILY [facility] Last Admin: 04/13/18 17:27 Dose: 10 mg Aspirin (Ecotrin) 81 mg PO DAILY [facility] Atorvastatin Calcium (Lipitor) 20 mg PO QPM [facility] Last Admin: 04/13/18 17:28 Dose: 20 mg Clonidine HCl (Catapres) 0.1 mg PO Q6H PRN PRN Reason: HYPERTENSION Hydralazine HCl (Apresoline) 25 mg PO TID [facility] Sodium Chloride (Ns Inj) 1,000 mls @ 100 mls/hr IV.CONT .Q10H [facility] Levothyroxine Sodium (Synthroid) 75 mcg PO DAILY@0600 [facility] Metoprolol Succinate (Toprol Xl) 25 mg PO DAILY [facility] Multivitamins (Theragran) 1 tab PO DAILY [facility] Pantoprazole Sodium (Protonix) 20 mg PO BID [facility] Terazosin HCl (Hytrin) 2 mg PO HS [facility] Vitamin D (Vitamin D3) 1,000 unit PO DAILY [facility] Physical Exam Vital signs: Vital Signs 04/13/18 08:34 04/13/18 12:35 04/13/18 16:50 Temperature 97.8 F Pulse Rate 74 66 72 Respiratory Rate 18 16 Blood Pressure 209/85 H 203/79 H 198/78 H Pulse Oximetry 97 04/13/18 16:54 Temperature Pulse Rate 72 Respiratory Rate Blood Pressure Pulse Oximetry Intake & Output 04/12/18 04/13/18 04/13/18 18:59 06:59 18:59 Weight 113.398 kg Narrative: Patient is awake and alert with his at bedside S1S2 CTA B/L Soft, nontender, nondistended, normal bowel sounds 1+ pitting edema of the lower exts. Patient can move all 4 exts, sensation intact b/l. Patient has motor weakness of the lower exts and uses a wheelchair to get around. Can walk short distances Results Labs CBC & Chem 7: 04/13/18 11:13 04/13/18 11:13 Caprini VTE Risk Assessment Caprini VTE Risk Assessment: No/Low Risk (score <= 1) Caprini Risk Assessment Model: Point Value = 1 Point Value = 2 Point Value = 3 Point Value = 5 Age 41-60 Minor surgery BMI > 25 kg/m2 Swollen legs Varicose veins or History of unexplained or recurrent spontaneous Oral contraceptives or hormone replacement Sepsis (< 1 month) Serious lung disease, including pneumonia (< 1 month) Abnormal pulmonary function Acute myocardial infarction Congestive heart failure (< 1 month) History of inflammatory bowel disease Medical patient at bed rest Age 61-74 Arthroscopic surgery Major open surgery (> 45 min) Laparoscopic surgery (> 45 min) Malignancy Confined to bed (> 72 hours) Immobilizing plaster cast Central venous access Age >= 75 History of VTE Family history of VTE Factor V Leiden Prothrombin [id number] Lupus anticoagulant Anticardiolipin antibodies Elevated serum homocysteine Heparin-induced thrombocytopenia Other congenital or acquired thrombophilia Stroke (< 1 month) Elective arthroplasty Hip, pelvis, or leg fracture Acute spinal cord injury (< 1 month) Prophylaxis Regimen: Total Risk Factor Score Risk Level Prophylaxis Regimen 0-1 Low Early ambulation 2 Moderate Order ONE of the following: *Sequential Compression Device (SCD) *Heparin 5000 units SQ BID 3-4 Higher Order ONE of the following medications: *Heparin 5000 units SQ TID *Enoxaparin/Lovenox 40 mg SQ daily (WT < 150 kg, CrCl > 30 mL/min) *Enoxaparin/Lovenox 30 mg SQ daily (WT < 150 kg, CrCl > 10-29 mL/min) *Enoxaparin/Lovenox 30 mg SQ BID (WT < 150 kg, CrCl > 30 mL/min) AND/OR *Sequential Compression Device (SCD) 5 or more Highest Order ONE of the following medications: *Heparin 5000 units SQ TID (Preferred with Epidurals) *Enoxaparin/Lovenox 40 mg SQ daily (WT < 150 kg, CrCl > 30 mL/min) *Enoxaparin/Lovenox 30 mg SQ daily (WT < 150 kg, CrCl > 10-29 mL/min) *Enoxaparin/Lovenox 30 mg SQ BID (WT < 150 kg, CrCl > 30 mL/min) AND *Sequential Compression Device (SCD) Assessment and Plan Plan This patient is a 77 y/o Male with a dx of HTN, DLD, DM II, and hx of aortic valve replacement who presents to the ED after he was sent by his PCP for elevated serum creatinine of 6 that was done one week ago in the clinic. The patient was advised to come into the ED today because of the lab results. He says he does not drink much water at home and drinks 6-8 bottles of diet root beer per day. He takes losartan at home for HTN and was unaware that he had any kidney dysfunction. 1. MACARIO possibly prerenal and medication induced Patient says he does not drink much water while at home however stays hydrated with diet root beer. One week ago his serum cr was 6, currently 3.8 from today. BUN 39. Patient's baseline in 04/2017 was around 1.2 Patient will be started on ivf, losartan and HCTZ stopped. Patient not on IVF on my evaluation, discussed with nurse who says patient now has an IV line and IVF will be initiated. Follow up am labs, if no improvement in kidney function we will consult nephrology. Patient is making urine. Strict ins/outs. U/A shows no significant findings. 2. DLD Continue Statin 3. HTN Continue BB, Norvasc, Hydralazine added. Hold HCTZ, Hold Losartan. Will monitor the blood pressure and adjust meds as needed. Clonidine prn. 4. DMII Start low dose insulin sliding scale Accu checks q ac and hs. SCDs for DVT prophylaxis.
[2018-04-13] MEDS ORDERED: TERAZOSIN 2 MG PO SCH (21:00)
[2018-04-13] MEDS: Pantoprazole Sodium 20 MG DR Tablet PO SCH (21:29)
[2018-04-13] MEDS: hydrALAZINE 25 MG Tablet PO SCH (21:29)
[2018-04-13] MEDS: Sod Chloride 0.9% Inj 1,000 ML IV.CONT SCH (21:42)
[2018-04-13] MEDS: Insulin NovoLOG Aspart Correctional Sugar Inj SQ SCH (22:27)
[2018-04-14] MEDS: Sod Chloride 0.9% Inj 1,000 ML IV.CONT SCH ×3 (01:26→21:53)
[2018-04-14 05:36] LABS: Calcium 8.9 mg/dL (8.5-10.1); Carbon Dioxide 24.8 meq/L (21.0-32.0); Magnesium 1.7 mg/dL (1.5-2.5); Potassium 3.7 meq/L (3.5-5.1)
[2018-04-14] MEDS: Levothyroxine 75 MCG Tablet PO SCH (05:45)
[2018-04-14] MEDS ORDERED: Non-Formulary Drug (Coq10 (Ubiquinol) [Coq10 (Ubiquinol)] 100 MG) PO SCH (09:00)
[2018-04-14] MEDS ORDERED: Non-Formulary Drug (Multivitamin [Multivitamin] 1 TAB) PO SCH (09:00)
[2018-04-14] MEDS: Insulin NovoLOG Aspart Correctional Sugar Inj SQ SCH ×5 (10:18→21:54)
[2018-04-14] MEDS: Pantoprazole Sodium 20 MG DR Tablet PO SCH ×2 (10:19→21:53)
[2018-04-14] MEDS: amLODIPine 10 MG Tablet PO SCH (10:19)
[2018-04-14] MEDS: hydrALAZINE 25 MG Tablet PO SCH ×3 (10:19→17:35)
--- NOTE | 2018-04-14 13:25 | P.PNIM ---
Subjective Interval history: Follow-up visit for HPI, hypertension, diabetes mellitus type 2, and hyperlipidemia. Patient seen and examined sitting in the chair, patient stated he is in pain all the time for neuropathy. However patient denies any taking pain medication at home. Patient stated he is used to it. Patient stated to some numbness and tingling feeling. Patient denies any headache or dizziness, denies any chest pain or shortness of breath, denies any abdominal pain, nausea, vomiting, diarrhea or constipation. Patient denies any fever or chills. Patient stated he is going to the [place] for his medical care. Nurse reported no acute concerns Physical Exam Vital signs: Vital Signs 04/13/18 16:50 04/13/18 16:54 04/13/18 20:15 Temperature Pulse Rate 72 72 55 L Respiratory Rate 18 Blood Pressure 198/78 H 145/65 H Pulse Oximetry 98 04/14/18 00:30 04/14/18 05:25 04/14/18 08:00 Temperature 97.8 F 97.8 F 97.3 F L Pulse Rate 77 62 63 Respiratory Rate 18 17 17 Blood Pressure 122/61 134/63 148/67 H Pulse Oximetry 97 98 96 Intake & Output 04/13/18 04/14/18 04/14/18 18:59 06:59 18:59 Intake Total 300 / 300 1000 / 1000 Output Total 0 / 0 Balance 300 / 300 1000 / 1000 Weight 113.398 kg 113.3 kg Intake: IV 1000 / 1000 NS Inj 1,000 ML @ 100 mls/hr IV 1000 / 1000 .CONT .Q10H [facility] Rx#:[id number] Oral 300 / 300 Output: Urine 0 / 0 Other: Date of Last Bowel Movement 04/12/18 # Bowel Movements 0 Narrative: GENERAL: Well-developed, well-nourished, obese male, in no acute distress SKIN: Warm and dry. HEAD: Atraumatic. Normocephalic. NECK: Trachea midline. No JVD. CARDIOVASCULAR: Regular rate and rhythm. RESPIRATORY: No accessory muscle use. Clear to auscultation. Breath sounds equal bilaterally. GASTROINTESTINAL: Abdomen obese, soft, non-tender, nondistended. Hepatic and splenic margins not palpable. MUSCULOSKELETAL: Extremities without clubbing, cyanosis. Bilateral lower extremity trace edema NEUROLOGICAL: Awake and alert. No obvious cranial nerve deficits. Generalized weakness, moving all 4 extremities. Normal speech. PSYCHIATRIC: Appropriate mood and affect; insight and judgment normal. Results Labs CBC & Chem 7: 04/13/18 11:13 04/14/18 04:44 Assessment and Plan Plan This patient is a 77 y/o Male with a dx of HTN, DLD, DM II, and hx of aortic valve replacement who presents to the ED after he was sent by his PCP for elevated serum creatinine of 6 that was done one week ago in the clinic. The patient was advised to come into the ED today because of the lab results. He says he does not drink much water at home and drinks 6-8 bottles of diet root beer per day. He takes losartan at home for HTN and was unaware that he had any kidney dysfunction. MACARIO - possibly prerenal and medication induced -Patient says he does not drink much water while at home however stays hydrated with diet root beer. -One week ago his serum Cr was 6, currently 3.56 from today. BUN 39. Patient' s baseline in 04/2017 was around 1.2 -continue IVF - discontinued losartan and HCTZ -consult Nephrology, appreciate assistance -Patient is making urine. -Strict ins/outs. -U/A shows no significant findings. -consult Nephrology, appreciate assistance -Renal Ultrasound ordered Hypertensive Emergency Hx HTN -BP elevated on admission, likely related to MACARIO -Continue BB, Norvasc, Hydralazine added. -Hold HCTZ, Hold Losartan - monitor the blood pressure and adjust medications accordingly -continue Clonidine prn. DMII -Start low dose insulin sliding scale -monitor blood sugar with Accu checks q ac and hs and cover with insulin sliding scale -add basal insulin HLD -Continue Statin DVT prophylaxis: Bilateral SCD's. Code Status: full code Discussed Condition With: patient, nurse Dr Hall Discharge Planning: [employer]pery Seamstress to assist with discharge planning in 1-2 day Progress Note: Quality VTE Deep Vein Thrombosis/Pulmonary Embolism Present on Admission: No
--- NOTE | 2018-04-14 16:15 | US ---
EXAM DATE: 04/14/2018 3:52 PM EST AGE/SEX: 77 years / Male INDICATIONS: Increased BUN/Creatinine. CLINICAL DATA: This is the patient's initial encounter. Patient reports that signs and symptoms have been present for 1 day and indicates a pain score of 0/10. MEDICAL/SURGICAL HISTORY: Diabetes mellitus type II. Hypertension. Myocardial infarction. Ne uropathy. Hypothyroidism. Agent orange exposure. Hyperlipidemia. . Aortic valve replacement. COMPARISON: [facility] [place]NAL/[place]AD[place], 05/12/2017. . MEASUREMENTS: Right Kidney:__10.8 x 6.0 x 6.0 cm Left Kidney:__12.9 x 6.5 x 7.4 cm FINDINGS: Right Kidney: Normal echogenicity and cortical thickness. No mass or hydronephrosis. Left Kidney: 4.9 x 5.3 x 3.6 cm hypoechoic mass at the midpole left kidney with blood flow concerning for renal cell carcinoma until proven otherwise. It is not well-visualized on this study. Bladder: Within normal limits given the degree of distension. Other: Prostate is prominent measuring 6.3 x 6.5 x 5.3 cm. CONCLUSION: 1. Solid appearing left renal mass concerning for malignancy until proven otherwise. Due to limited visualization, consider further evaluation with cross-sectional imaging with contrast if clinically f easible. 2. Prominent prostate. Electronically signed by: Ben Vu MD Board Certified Radiologist 04/14/2018 4:14 PM EST
--- NOTE | 2018-04-14 19:23 | P.CONNP ---
History of Present Illness Service: Nephrology Consult date: 04/14/18 Reason for Consult: Acute renal failure and chronic kidney Primary Care Provider: [facility] Chief Complaint: Abnormal blood work History of Present Illness: Patient is a 77-year-old male with history of diabetes for 20 years, aortic valve replacement 4 years ago, hypertension, and degenerative joint disease, he has been admitted due to abnormal blood work, apparently his creatinine was 6 as outpatient, he came in having creatinine of 3.8 and after getting hydration dropped to 3.56, patient blood sugar is [id number] range, ultrasound of the kidney showed left renal mass which appears solid 4.9-5.3cm to 3.6 cm midpole, he denies having history of hematuria, kidney stones, admitted of benign prostatic enlargement ultrasound showed prostate at 6.3 cm to 6.5 into 5.3 cm. He said he has seen a urologist long time ago and had circumcision done. He denies any dysuria stated he is feeling well, his only complaint was low blood sugar which she detected recently and he was not drinking too much water. Patient use ibuprofen 600 mg twice a day for arthritis as needed. Review of Systems Constitutional: Denies anorexia, Denies body ache(s), Denies chills, Denies daytime sleepiness, Denies excessive sweating, Denies fatigue, Denies fever(s), Denies headache(s), Denies increased appetite, Denies lack of energy, Denies malaise, Denies night sweats, Denies weakness, Denies weight gain, Denies weight loss, Denies other Eyes: Denies blind spots, Denies blurry vision, Denies bulging eyes, Denies change in vision, Denies double vision, Denies discharge, Denies dry eyes, Denies floaters, Denies irritation, Denies itchy eyes, Denies loss of vision, Denies pain, Denies requires corrective lenses, Denies sensitivity to light, Denies other Ears, Nose, Mouth, and Throat: Denies abnormal hearing, Denies bleeding gums, Denies bad breath, Denies change in voice, Denies dental pain, Denies difficulty swallowing, Denies dizziness, Denies dry mouth, Denies ear discharge , Denies ear pain, Denies facial pain, Denies headache(s), Denies hearing loss, Denies hoarseness, Denies lip swelling, Denies nosebleed, Denies mouth lesions, Denies mouth pain, Denies nasal congestion, Denies nasal discharge, Denies nasal obstruction, Denies nasal trauma, Denies neck lump, Denies neck pain, Denies nose pain, Denies pain with swallowing, Denies poor balance, Denies post nasal drip, Denies ringing in the ears, Denies sinus pain, Denies sinus pressure , Denies sore throat, Denies throat swelling, Denies tongue swelling, Denies other Cardiovascular: Reports leg swelling Respiratory: Reports shortness of breath with activity Gastrointestinal: Denies abdominal pain, Denies belching, Denies black, tarry stools, Denies bloating, Denies bright, red blood in stools, Denies change in bowel habits, Denies constant urge to pass stool, Denies change in stools, Denies coffee ground vomit, Denies constipation, Denies cramping, Denies difficulty swallowing, Denies excessive passing of gas, Denies feeling full early, Denies heartburn, Denies incontinent of stools, Denies loose stools, Denies nausea, Denies pain with swallowing, Denies vomiting, Denies vomiting blood, Denies other Genitourinary: Reports other Musculoskeletal: Denies abnormal walking, Denies back pain, Denies body aches, Denies decreased muscle mass, Denies deformity, Denies joint pain, Denies joint swelling, Denies limited joint movement, Denies loss of height, Denies muscle cramps, Denies muscle weakness, Denies neck pain, Denies numbness, Denies radiating pain into limb, Denies stiffness, Denies tingling, Denies other Skin/Breast: Denies acne, Denies bleeding lesions, Denies boil, Denies breast swelling, Denies breast skin changes, Denies breast pain, Denies breast lump, Denies change in breast shape, Denies change in hair, Denies change in skin color, Denies changing lesions, Denies dry skin, Denies excessive hair growth, Denies hair loss, Denies itching, Denies lesions, Denies nail changes, Denies new lesions, Denies nipple discharge, Denies non-healing lesions, Denies redness , Denies sensitivity to light, Denies rash, Denies skin pain, Denies skin ulcer , Denies sores, Denies stretch whitt, Denies unusual bruising, Denies wounds, Denies yellowing of the skin, Denies other Neurologic: Denies weakness Psychiatric: Denies abnormal sleep pattern, Denies anxiety, Denies behavioral changes, Denies change in appetite, Denies change in sex drive, Denies confusion , Denies depression, Denies difficulty concentrating, Denies hearing things others do not hear, Denies hopelessness, Denies irritability, Denies lack of enjoyment, Denies memory loss, Denies mood swings, Denies panic attacks, Denies paranoia, Denies seeing things others do not see, Denies sensing things others do not sense, Denies tactile hallucinations, Denies thoughts of hurting/killing others, Denies thoughts of hurting/killing yourself, Denies other Endocrine: Denies cold intolerance, Denies excessive sweating, Denies flushing, Denies heat intolerance, Denies increased hunger, Denies increased thirst, Denies increased urination, Denies rapid, pounding, or irregular heartbeat, Denies other Hematologic/Lymphatic: Denies easy bleeding, Denies easy bruising, Denies enlarged lymph nodes, Denies other Allergic/Immunologic: Denies GI upset with certain foods, Denies hives, Denies itchy eyes, Denies lip swelling, Denies seasonal runny nose, Denies throat swelling, Denies tongue swelling, Denies wheezing, Denies other PMFSH - History History Provided By: Patient - Medical History Medical History: Medical History (Last Updated 04/14/18 @ 19:12 by Maame Waggoner MD) Agent orange exposure Diabetes HTN (hypertension) High cholesterol Hypothyroidism Male circumcision Myocardial infarction Neuropathy - Surgical History Surgical History: Surgical History (Last Reviewed 04/14/18 @ 19:11 by Maame Waggoner MD) Hx of ascending aorta replacement - Family History Family History: Family History (Last Updated 04/14/18 @ 19:12 by Maame Waggoner MD) Other Family history of acute myocardial infarction - Social History I have reviewed the patient's Social History: Yes - Tobacco History Second Hand Smoke Exposure: No Smoking Status: Former smoker - Alcohol History How Often Do You Have a Drink Containing Alcohol: Never - Substance Use History Substance History: No History of Abuse - Travel History Recent Travel in the [facility] Within the Last 8 Weeks: No Recent Travel Out of the Country Within the Last 8 Weeks: No - Immunization History Tetanus Immunization: <5 Years Hx Influenza Vaccine This Season: Yes Medications and Allergies Active Medications: Active Medications Albuterol (Ventolin Hfa Inh) 2 puff INH Q6H PRN PRN Reason: Shortness Of Breath Amlodipine Besylate (Norvasc) 10 mg PO DAILY [facility] Last Admin: 04/14/18 10:19 Dose: 10 mg Aspirin (Ecotrin) 81 mg PO DAILY [facility] Last Admin: 04/14/18 10:19 Dose: 81 mg Atorvastatin Calcium (Lipitor) 20 mg PO QPM [facility] Last Admin: 04/14/18 17:35 Dose: 20 mg Clonidine HCl (Catapres) 0.1 mg PO Q6H PRN PRN Reason: HYPERTENSION Dextrose (D50w Vial) 50 ml IV.PUSH UNSCH PRN PRN Reason: PER HYPOGLYCEMIA PROTOCOL Glucagon (Glucagon Inj) 1 mg OTHER PRN PRN PRN Reason: for Hypoglycemia Protocol Hydralazine HCl (Apresoline) 25 mg PO TID [facility] Last Admin: 04/14/18 17:35 Dose: 25 mg Sodium Chloride (Ns Inj) 1,000 mls @ 100 mls/hr IV.CONT .Q10H [facility] Last Admin: 04/14/18 11:15 Dose: 100 mls/hr Insulin Aspart (Novolog Insulin Correctional Sugar Inj) 0 unit SQ ACHS [facility]; Protocol Last Admin: 04/14/18 18:47 Dose: 5 unit Insulin Detemir (Levemir Inj) 5 unit SQ HS [facility] Levothyroxine Sodium (Synthroid) 75 mcg PO DAILY@0600 [facility] Last Admin: 04/14/18 05:45 Dose: 75 mcg Metoprolol Succinate (Toprol Xl) 25 mg PO DAILY [facility] Last Admin: 04/14/18 10:19 Dose: Not Given Multivitamins (Theragran) 1 tab PO DAILY [facility] Last Admin: 04/14/18 10:19 Dose: 1 tab Pantoprazole Sodium (Protonix) 20 mg PO BID [facility] Last Admin: 04/14/18 10:19 Dose: 20 mg Terazosin HCl (Hytrin) 2 mg PO HS [facility] Last Admin: 04/13/18 21:29 Dose: 2 mg Vitamin D (Vitamin D3) 1,000 unit PO DAILY [facility] Last Admin: 04/14/18 10:19 Dose: 1,000 unit Allergies Allergy/AdvReac Type Severity Reaction Status Date / Time No Known Allergies Allergy Verified 04/13/18 08:34 Home Medications Medication Instructions Recorded Confirmed Type albuterol sulfate 2 puff INHALATION Q6H PRN 04/13/18 04/13/18 History arginine oxoglurate 500 mg PO DAILY 04/13/18 04/13/18 History [L-Arginine(alpha-ketoglutarat)] aspirin 81 mg PO DAILY 04/13/18 04/13/18 History atorvastatin [Lipitor] 20 mg PO QPM 04/13/18 04/13/18 History cholecalciferol (vitamin D3) 1,000 unit PO DAILY 04/13/18 04/13/18 History [Vitamin D3] coQ10 (ubiquinol) 100 mg PO DAILY 04/13/18 04/13/18 History cyanocobalamin (vitamin B-12) 1,000 mcg PO DAILY 04/13/18 04/13/18 History [Vitamin B-12] glipizide 20 mg PO BID 04/13/18 04/13/18 History hydrochlorothiazide 25 mg PO DAILY 04/13/18 04/13/18 History ibuprofen 600 mg PO BID PRN 04/13/18 04/13/18 History levothyroxine [Synthroid] 75 mcg PO DAILY 04/13/18 04/13/18 History losartan 100 mg PO DAILY 04/13/18 04/13/18 History metformin 1,000 mg PO BID 04/13/18 04/13/18 History metoprolol succinate 25 mg PO DAILY 04/13/18 04/13/18 History multivitamin 1 tab PO DAILY 04/13/18 04/13/18 History omega 2-qmo-vfo-fish oil [Fish Oil] 1 cap PO DAILY 04/13/18 04/13/18 History omeprazole 20 mg PO BID 04/13/18 04/13/18 History terazosin 2 mg PO HS 04/13/18 04/13/18 History vitamin B complex 1 cap PO DAILY 04/13/18 04/13/18 History Exam Vital signs: Vital Signs 04/13/18 20:15 04/14/18 00:30 04/14/18 05:25 Temperature 97.8 F 97.8 F Pulse Rate 55 L 77 62 Respiratory Rate 18 18 17 Blood Pressure 145/65 H 122/61 134/63 Pulse Oximetry 98 97 98 04/14/18 08:00 04/14/18 12:00 Temperature 97.3 F L 97.4 F L Pulse Rate 63 71 Respiratory Rate 17 17 Blood Pressure 148/67 H 132/61 Pulse Oximetry 96 97 Intake & Output 04/14/18 04/14/18 04/15/18 06:59 18:59 06:59 Intake Total 300 / 300 1000 / 1000 Output Total 0 / 0 Balance 300 / 300 1000 / 1000 Weight 113.3 kg Intake: IV 1000 / 1000 NS Inj 1,000 ML @ 100 mls/hr IV 1000 / 1000 .CONT .Q10H [facility] Rx#:[id number] Oral 300 / 300 Output: Urine 0 / 0 Other: Date of Last Bowel Movement 04/12/18 # Bowel Movements 0 Narrative: GENERAL: Well-nourished, well-developed patient. SKIN: Warm and dry. HEAD: Normocephalic. EYES: No scleral icterus. No injection or drainage. NECK: Supple, trachea midline. No JVD or lymphadenopathy. CARDIOVASCULAR: Regular rate and rhythm without murmurs, gallops, or rubs. RESPIRATORY: Breath sounds equal bilaterally. No accessory muscle use. GASTROINTESTINAL: Abdomen soft, non-tender, nondistended. EXTREMITIES: Mild edema NEUROLOGICAL: Awake, alert, and oriented x 3. Non-focal. Results - Lab Results 04/13/18 11:13 04/14/18 04:44 Most recent lab results Calcium 8.9 mg/dL (8.5-10.1) 04/14/18 04:44 Magnesium 1.7 mg/dL (1.5-2.5) 04/14/18 04:44 Assessment and Plan - Assessment (1) Acute kidney injury Code(s): N17.9 - Acute kidney failure, unspecified Status: Acute Plan: Patient has dehydration responded to IV fluid with decline in creatinine however he may have stage IV chronic kidney disease due to diabetes, check urine for protein Ultrasound revealed left renal mass and this should follow-up with MRI to confirm Consider urological consult Order protein electrophoresis ALBERTO Follow BMP Agree with holding ARB/ibuprofen/metformin Check urine sodium and creatinine Avoid nephrotoxic agents Strict intake and output We will continue to monitor (2) Left renal mass Code(s): N28.89 - Other specified disorders of kidney and ureter Status: Acute Plan: Suspicious mass on ultrasound MRI has been ordered (3) Diabetes Code(s): E11.9 - Type 2 diabetes mellitus without complications Status: Acute Plan: Patient diabetes remains uncontrolled continue to monitor and sliding scale NovoLog and Levemir (4) Chronic kidney disease Code(s): N18.9 - Chronic kidney disease, unspecified Status: Acute Plan: Patient is off the diuretic losartan creatinine declined (3) Diabetes Qualifiers: Diabetes mellitus type: type 2 Chronic kidney disease stage: stage 4 (severe) (4) Chronic kidney disease Qualifiers: Chronic kidney disease stage: stage 4 (severe) Qualified Code(s): N18.4 - Chronic kidney disease, stage 4 (severe)
[2018-04-14] MEDS: Insulin Detemir Inj 1,000 UNIT/10 ML Vial SQ SCH (21:59)
[2018-04-15 05:12] LABS: Protein/Creatinine Ratio,Urine 0.34 (0.00-0.14); Total Protein,Urine Random 16.9 mg/dL (0-11.8)
[2018-04-15 05:29] LABS: Hematocrit 32.5 % (39.0-51.0); Hemoglobin 10.8 gm/dL (13.0-17.0); Mean Corpuscular HGB Conc 33.2 % (32.0-36.0); Mean Corpuscular Volume 87.3 fL (80.0-100.0); Mean Platelet Volume 8.3 fL (7.0-11.0); Platelet Count 303 th/mm3 (150-450); Red Blood Count 3.72 mil/mm3 (4.50-5.90); Red Cell Distribution Width 14.4 % (11.6-17.2); White Blood Count 8.8 th/mm3 (4.0-11.0)
[2018-04-15] MEDS: Levothyroxine 75 MCG Tablet PO SCH (05:30)
[2018-04-15] MEDS: Sod Chloride 0.9% Inj 1,000 ML IV.CONT SCH ×3 (05:31→17:42)
[2018-04-15 05:58] LABS: Calcium 9.3 mg/dL (8.5-10.1); Carbon Dioxide 24.8 meq/L (21.0-32.0); Potassium 4.1 meq/L (3.5-5.1)
--- NOTE | 2018-04-15 06:49 | ECG ---
Date Performed: 04/13/2018 Time Performed: 11:44:02 PTAGE: 77 years EKG: SINUS BRADYCARDIA WITH OCCASIONAL SUPRAVENTRICULAR PREMATURE COMPLEXES NONSPECIFIC T-WAVE A BNORMALITY ABNORMAL ECG PREVIOUS TRACING : 05/12/2017 11.08 Since the previous tracing, no significant change noted DOCTOR: [place] Cox Interpretating Date/Time 04/15/2018 06:48:20
--- NOTE | 2018-04-15 08:54 | P.PNIM ---
Addendum entered and electronically signed by SUZETTE Hinojosa 04/15/18 12:48 : Assessment and plan MRI results: 5.2 cm solid renal mass with central necrosis lower pole left kidney most characteristic of a renal cell carcinoma. No evidence for metastatic disease within the abdomen on MRI Consult urology appreciate assistance Consult oncology appreciate assistance Discussed with Dr. Hall Original Note: Subjective Interval history: F/U for MACARIO, HTN and DMII. Pt sitting in the chair, denies any pain at this time other than his usual pain. Pt stated voiding well and more due to the IVF. Stated left leg is more swollen than the usual. C/o of dry flaky skin on B LE Pt agreed and willing to do more test and treatment whether it is biopsy or surgery. Physical Exam Vital signs: Vital Signs 04/14/18 12:00 04/14/18 16:00 04/14/18 22:50 Temperature 97.4 F L 97.8 F 97.2 F L Pulse Rate 71 70 76 Respiratory Rate 17 17 17 Blood Pressure 132/61 137/65 139/65 Pulse Oximetry 97 98 96 04/15/18 05:15 04/15/18 08:10 Temperature 97.9 F 97.5 F L Pulse Rate 82 86 Respiratory Rate 17 17 Blood Pressure 140/63 153/67 H Pulse Oximetry 97 97 Intake & Output 04/14/18 04/15/18 04/15/18 18:59 06:59 18:59 Intake Total 2796 / 2796 1780 / 1780 Output Total 1400 / 1400 1400 / 1400 Balance 1396 / 1396 380 / 380 Weight 113.2 kg Intake: IV 1000 / 1000 1000 / 1000 NS Inj 1,000 ML @ 100 mls/hr IV 1000 / 1000 1000 / 1000 .CONT .Q10H [facility] Rx#:[id number] Oral 946 / 946 780 / 780 Other 850 / 850 Output: Urine 1400 / 1400 1400 / 1400 Other: Other Intake Source Saline Solution # Voids 1 Date of Last Bowel Movement 04/12/18 # Bowel Movements 0 Narrative: GENERAL: Well-developed, well-nourished, obese male, in no acute distress SKIN: Warm and dry. HEAD: Atraumatic. Normocephalic. NECK: Trachea midline. No JVD. CARDIOVASCULAR: Regular rate and rhythm. RESPIRATORY: No accessory muscle use. Clear to auscultation. Breath sounds equal bilaterally. GASTROINTESTINAL: Abdomen obese, soft, non-tender, nondistended. Hepatic and splenic margins not palpable. MUSCULOSKELETAL: Extremities without clubbing, cyanosis. Bilateral lower extremity trace edema, LLE 1+ pitting > RLE trace NEUROLOGICAL: Awake and alert. No obvious cranial nerve deficits. Generalized weakness, moving all 4 extremities. Normal speech. PSYCHIATRIC: Appropriate mood and affect; insight and judgment normal. Results Labs CBC & Chem 7: 04/15/18 04:39 04/15/18 04:39 Imaging Imaging: Impressions Abdomen/Bladder Ultrasound 04/14/18 00:00 CONCLUSION: 1. Solid appearing left renal mass concerning for malignancy until proven otherwise. Due to limited visualization, consider further evaluation with cross- sectional imaging with contrast if clinically feasible. 2. Prominent prostate. Assessment and Plan (1) Acute kidney injury: Code(s): N17.9 - Acute kidney failure, unspecified Status: Acute (2) Left renal mass: Code(s): N28.89 - Other specified disorders of kidney and ureter Status: Acute (3) Diabetes: Code(s): E11.9 - Type 2 diabetes mellitus without complications Status: Acute (4) Chronic kidney disease: Code(s): N18.9 - Chronic kidney disease, unspecified Status: Acute Plan This patient is a 77 y/o Male with a dx of HTN, DLD, DM II, and hx of aortic valve replacement who presents to the ED after he was sent by his PCP for elevated serum creatinine of 6 that was done one week ago in the clinic. The patient was advised to come into the ED today because of the lab results. He says he does not drink much water at home and drinks 6-8 bottles of diet root beer per day. He takes losartan at home for HTN and was unaware that he had any kidney dysfunction. MACARIO - possibly prerenal and medication induced -Patient says he does not drink much water while at home however stays hydrated with diet root beer. -One week ago his serum Cr was 6, currently 3.56 from today. BUN 39. Patient' s baseline in 04/2017 was around 1.2 -decrease IVF rate due to increasing LLE edema - discontinued losartan and HCTZ -consult Nephrology, appreciate assistance -Patient is making urine. -Strict ins/outs. -U/A shows no significant findings. -consult Nephrology, appreciate assistance -Renal Ultrasound: Left Kidney: 4.9 x 5.3 x 3.6 cm hypoechoic mass at the midpole left kidney . Prominent Prostate -MRI of the Kidney ordered Hypertensive Emergency Hx HTN -BP elevated on admission, likely related to MACARIO -Continue metoprolol, Norvasc, and Hydralazine -Hold HCTZ, Hold Losartan - monitor the blood pressure and adjust medications accordingly -continue Clonidine prn. DM II -hold home medications metformin and glipizide -Start low dose insulin sliding scale -monitor blood sugar with Accu checks q ac and hs and cover with insulin sliding scale -add basal insulin HLD -Continue Statin DVT prophylaxis: Bilateral SCD's. Discharge Planning: Turn Supervisor to assist with discharge planning in 1-2 day Attending Attestation The exam, history, and the medical decision-making described in the above note were completed with the assistance of the mid-level provider. I reviewed and agree with the findings presented. I attest that I had a [id number] encounter with the patient on the same day, and personally performed and documented my assessment and findings in the medical record. Patient seen and examined. He reports he is feeling okay. We discussed the findings of the MRI. He wants to proceed with any workup or treatment. On exam CARDIOVASCULAR: Normal rate and regular rhythm without murmurs, gallops, or rubs. RESPIRATORY: Good respiratory efforts. Breath sounds equal and clear to auscultation bilaterally. GASTROINTESTINAL: Abdomen soft, non-tender, non-distended. Normal active bowel sounds Patient admitted with acute renal failure and found to have a renal mass concerning for renal cell carcinoma. He wants to proceed with further workup and treatment. Urology and oncology consulted. Progress Note: Quality VTE Deep Vein Thrombosis/Pulmonary Embolism Present on Admission: No _ (1) Diabetes Qualifiers: Chronic kidney disease stage: stage 4 (severe) Diabetes mellitus complication detail: Diabetes mellitus complication status: Diabetes mellitus group home insulin use: Diabetes mellitus macular edema: Diabetes mellitus type: type 2 Diabetic retinopathy severity: Laterality: Proliferative retinopathy type: (2) Chronic kidney disease Qualifiers: Chronic kidney disease stage: stage 4 (severe) Qualified Code(s): N18.4 - Chronic kidney disease, stage 4 (severe)
--- NOTE | 2018-04-15 09:40 | MR ---
EXAM DATE: 04/15/2018 9:32 AM EST AGE/SEX: 77 years / Male INDICATIONS: . Abnormal US. CLINICAL DATA: This is the patient's subsequent encounter. Patient reports that signs and symptoms h ave been present for 3 days and indicates a pain score of 5/10. MEDICAL/SURGICAL HISTORY: Diabetes mellitus type II. . Aortic valve replaced, hernia repair, ro tator cuff repair COMPARISON: No prior exams available for comparison. TECHNIQUE: Multiplanar, multisequence images of the abdomen was performed without contrast. FINDINGS: MRI abdomen without contrast confirms a 5.2 x 4.3 cm mostly solid mass exophytic off the lower pole l eft kidney with probable central necrosis. There are multiple small additional benign-appearing cysts in both kidneys in the 1 to 2 cm range. There is no hydronephrosis. No associated adenopathy is identified. Adrenals are normal in size. No focal abnormalities seen in t he liver and spleen. There is fatty infiltration of the liver. There is previous sternotomy with susceptibility artifact in the lower anterior chest. Numerous gallstones are present in the gallbladder without biliary ductal dilatation. There is no alfonso e fluid. CONCLUSION: 1. 5.2 cm solid renal mass with central necrosis lower pole left kidney most characteristic of a kelly al cell carcinoma. No evidence for metastatic disease within the abdomen on MRI. 2. Additional small bilateral simple renal cysts. 3. Numerous gallstones layering dependently in the gallbladder without biliary ductal dilatation. Electronically signed by: Jose Guadalupe Block MD Board Certified Radiologist 04/15/2018 9:38 AM EST
[2018-04-15] MEDS: Pantoprazole Sodium 20 MG DR Tablet PO SCH ×2 (10:05→21:37)
[2018-04-15] MEDS: hydrALAZINE 25 MG Tablet PO SCH ×3 (10:05→17:39)
[2018-04-15] MEDS: amLODIPine 10 MG Tablet PO SCH (10:05)
[2018-04-15] MEDS: Insulin NovoLOG Aspart Correctional Sugar Inj SQ SCH ×4 (10:06→21:38)
--- NOTE | 2018-04-15 16:42 | P.PNNP ---
Subjective Interval history: Patient is doing okay Physical Exam Vital signs: Vital Signs 04/14/18 22:50 04/15/18 05:15 04/15/18 08:10 Temperature 97.2 F L 97.9 F 97.5 F L Pulse Rate 76 82 86 Respiratory Rate 17 17 17 Blood Pressure 139/65 140/63 153/67 H Pulse Oximetry 96 97 97 04/15/18 11:51 Temperature 97.6 F Pulse Rate 86 Respiratory Rate 17 Blood Pressure 116/54 L Pulse Oximetry 97 Intake & Output 04/14/18 04/15/18 04/15/18 18:59 06:59 18:59 Intake Total 2796 / 2796 1780 / 1780 Output Total 1400 / 1400 1400 / 1400 Balance 1396 / 1396 380 / 380 Weight 113.2 kg Intake: IV 1000 / 1000 1000 / 1000 NS Inj 1,000 ML @ 100 mls/hr IV 1000 / 1000 1000 / 1000 .CONT .Q10H [facility] Rx#:[id number] Oral 946 / 946 780 / 780 Other 850 / 850 Output: Urine 1400 / 1400 1400 / 1400 Other: Other Intake Source Saline Solution # Voids 1 Date of Last Bowel Movement 04/12/18 04/12/18 # Bowel Movements 0 Narrative: GENERAL: Well-nourished, well-developed patient. SKIN: Warm and dry. HEAD: Normocephalic. EYES: No scleral icterus. No injection or drainage. NECK: Supple, trachea midline. No JVD or lymphadenopathy. CARDIOVASCULAR: Regular rate and rhythm without murmurs, gallops, or rubs. RESPIRATORY: Breath sounds equal bilaterally. No accessory muscle use. GASTROINTESTINAL: Abdomen soft, non-tender, nondistended. EXTREMITIES: Mild edema NEUROLOGICAL: Awake, alert, and oriented x 3. Non-focal. Assessment and Plan - Assessment (1) Acute kidney injury Code(s): N17.9 - Acute kidney failure, unspecified Status: Acute Plan: Patient has dehydration responded to IV fluid with decline in creatinine however he may have stage IV chronic kidney disease due to diabetes, Avoid nephrotoxic agents Strict intake and output Creatinine continues to decline MRI confirmed 5.2 lower pole solid renal mass in left kidney urology consult We will continue to monitor (2) Left renal mass Code(s): N28.89 - Other specified disorders of kidney and ureter Status: Acute Plan: [place] solid mass on MRI cancers central necrosis (3) Diabetes Code(s): E11.9 - Type 2 diabetes mellitus without complications Status: Acute Qualifiers: Diabetes mellitus type: type 2 Chronic kidney disease stage: stage 4 ( severe) Plan: Patient diabetes remains uncontrolled continue to monitor and sliding scale NovoLog and Levemir (4) Chronic kidney disease Code(s): N18.9 - Chronic kidney disease, unspecified Status: Acute Qualifiers: Chronic kidney disease stage: stage 4 (severe) Qualified Code(s): N18.4 - Chronic kidney disease, stage 4 (severe) Plan: Patient is off the diuretic losartan creatinine declined
--- NOTE | 2018-04-15 19:05 | P.CON ---
History of Present Illness Service: Hematology/oncology. Consult date: 04/15/18 Requesting Physician: tSerling Stock Reason for Consult: Left renal mass concerning for renal cell carcinoma. Primary Care Provider: [facility] Chief Complaint: Patient denies complaints at this time. History of Present Illness: Mr. Sanz is a very pleasant 77-year-old male, he is a of the [id number] . The patient lives at home with his (his third ), he has 2 adult sons who live out of state. The patient reports having a history of diabetes, hypertension, morbid obesity and valvular heart disease ( status post aortic valve replacement about 2 years ago). Patient reports being in his usual fair state of health up until mid week last week, he notices blood glucose levels decline and as a result he felt weak. He modified his oral hypoglycemic medications and notified his primary care provider's office at the [facility] in [place]. He went in for lab work on 04/09/2018, he was called on 04/13/2018 and was advised to come into the emergency department because his creatinine was above normal. He came into the emergency department, he was noted to have a creatinine of 3.8 , he was initiated on IV fluid hydration and was noted to have improvement the gradual of his creatinine. As a part of the workup for renal insufficiency he underwent ultrasound of the kidneys, ultrasound revealed a mass involving the lower pole of the left kidney measuring a little over 5 cm; ultrasound was performed on 04/14/2018. Patient subsequently underwent MRI of the abdomen without contrast on 04/15/2018 which revealed a mass involving the lower pole of the left kidney consistent with renal cell carcinoma. The oncology/hematology service been asked to see him in the urology service is also been asked see the patient. The patient himself reports no symptoms of hematuria, he denies difficulty breathing, he denies new or unusual musculoskeletal aches and pains. Review of Systems Constitutional: Denies anorexia, Denies body ache(s), Denies lack of energy, Denies malaise, Denies night sweats, Denies weakness, Denies weight gain, Denies weight loss Eyes: Denies change in vision, Denies pain Ears, Nose, Mouth, and Throat: Denies abnormal hearing, Denies difficulty swallowing, Denies facial pain, Denies headache(s), Denies nasal congestion, Denies neck pain, Denies pain with swallowing, Denies sore throat, Denies throat swelling, Denies tongue swelling Cardiovascular: Denies chest pain, Denies chest pain with activity, Denies excessive sweating, Denies rapid, pounding, or irregular heartbeat, Denies shortness of breath when lying down, Denies shortness of breath causing sudden awakening, Denies slow heart rate Respiratory: Denies chest congestion, Denies cough, Denies coughing up blood, Denies shortness of breath, Denies shortness of breath with activity Gastrointestinal: Reports belching, Denies abdominal pain, Denies black, tarry stools, Denies bright, red blood in stools, Denies change in bowel habits, Denies heartburn, Denies pain with swallowing, Denies vomiting, Denies vomiting blood Genitourinary: Denies blood in urine Musculoskeletal: Denies abnormal walking, Denies back pain Skin/Breast: Denies acne Neurologic: Denies abnormal hearing, Denies lack of coordination, Denies localized weakness, Denies memory loss, Denies other visual disturbances, Denies tingling, Denies weakness Psychiatric: Denies anxiety Endocrine: Denies cold intolerance Hematologic/Lymphatic: Denies easy bleeding PMFSH - History History Provided By: Patient - Medical History Medical History: Medical History (Last Updated 04/14/18 @ 19:12 by Maame Waggoner MD) Agent orange exposure Diabetes HTN (hypertension) High cholesterol Hypothyroidism Male circumcision Myocardial infarction Neuropathy - Surgical History Surgical History: Surgical History (Last Reviewed 04/15/18 @ 19:00 by Cameron Waggoner MD) Hx of ascending aorta replacement - Family History Family History: Family History (Last Reviewed 04/15/18 @ 19:00 by Cameron Waggoner MD) Other Family history of acute myocardial infarction - Social History I have reviewed the patient's Social History: Yes - Tobacco History Second Hand Smoke Exposure: No Smoking Status: Former smoker - Alcohol History How Often Do You Have a Drink Containing Alcohol: Never - Substance Use History Substance History: No History of Abuse - Travel History Recent Travel in the [place] Within the Last 8 Weeks: No Recent Travel Out of the Country Within the Last 8 Weeks: No - Immunization History Tetanus Immunization: <5 Years Hx Influenza Vaccine This Season: Yes Medications and Allergies Active Medications: Active Medications Albuterol (Ventolin Hfa Inh) 2 puff INH Q6H PRN PRN Reason: Shortness Of Breath Amlodipine Besylate (Norvasc) 10 mg PO DAILY [facility] Last Admin: 04/15/18 10:05 Dose: 10 mg Aspirin (Ecotrin) 81 mg PO DAILY [facility] Last Admin: 04/15/18 10:06 Dose: 81 mg Atorvastatin Calcium (Lipitor) 20 mg PO QPM [facility] Last Admin: 04/15/18 17:39 Dose: 20 mg Clonidine HCl (Catapres) 0.1 mg PO Q6H PRN PRN Reason: HYPERTENSION Dextrose (D50w Vial) 50 ml IV.PUSH UNSCH PRN PRN Reason: PER HYPOGLYCEMIA PROTOCOL Glucagon (Glucagon Inj) 1 mg OTHER PRN PRN PRN Reason: for Hypoglycemia Protocol Hydralazine HCl (Apresoline) 25 mg PO TID [facility] Last Admin: 04/15/18 17:39 Dose: 25 mg Sodium Chloride (Ns Inj) 1,000 mls @ 80 mls/hr IV.CONT .[id number] [facility] Last Admin: 04/15/18 17:42 Dose: 80 mls/hr Insulin Aspart (Novolog Insulin Correctional Sugar Inj) 0 unit SQ ACHS [facility]; Protocol Last Admin: 04/15/18 17:39 Dose: 1 unit Insulin Detemir (Levemir Inj) 5 unit SQ HS [facility] Last Admin: 04/14/18 21:59 Dose: 5 unit Levothyroxine Sodium (Synthroid) 75 mcg PO DAILY@0600 [facility] Last Admin: 04/15/18 05:30 Dose: 75 mcg Metoprolol Succinate (Toprol Xl) 25 mg PO DAILY [facility] Last Admin: 04/15/18 10:05 Dose: 25 mg Multivitamins (Theragran) 1 tab PO DAILY [facility] Last Admin: 04/15/18 10:06 Dose: 1 tab Pantoprazole Sodium (Protonix) 20 mg PO BID [facility] Last Admin: 04/15/18 10:05 Dose: 20 mg Terazosin HCl (Hytrin) 2 mg PO HS [facility] Last Admin: 04/14/18 21:54 Dose: 2 mg Vitamin D (Vitamin D3) 1,000 unit PO DAILY [facility] Last Admin: 04/15/18 10:05 Dose: 1,000 unit Allergies Allergy/AdvReac Type Severity Reaction Status Date / Time No Known Allergies Allergy Verified 04/13/18 08:34 Home Medications Medication Instructions Recorded Confirmed Type albuterol sulfate 2 puff INHALATION Q6H PRN 04/13/18 04/13/18 History arginine oxoglurate 500 mg PO DAILY 04/13/18 04/13/18 History [L-Arginine(alpha-ketoglutarat)] aspirin 81 mg PO DAILY 04/13/18 04/13/18 History atorvastatin [Lipitor] 20 mg PO QPM 04/13/18 04/13/18 History cholecalciferol (vitamin D3) 1,000 unit PO DAILY 04/13/18 04/13/18 History [Vitamin D3] coQ10 (ubiquinol) 100 mg PO DAILY 04/13/18 04/13/18 History cyanocobalamin (vitamin B-12) 1,000 mcg PO DAILY 04/13/18 04/13/18 History [Vitamin B-12] glipizide 20 mg PO BID 04/13/18 04/13/18 History hydrochlorothiazide 25 mg PO DAILY 04/13/18 04/13/18 History ibuprofen 600 mg PO BID PRN 04/13/18 04/13/18 History levothyroxine [Synthroid] 75 mcg PO DAILY 04/13/18 04/13/18 History losartan 100 mg PO DAILY 04/13/18 04/13/18 History metformin 1,000 mg PO BID 04/13/18 04/13/18 History metoprolol succinate 25 mg PO DAILY 04/13/18 04/13/18 History multivitamin 1 tab PO DAILY 04/13/18 04/13/18 History omega [id number]-[id number]-fish oil [Fish Oil] 1 cap PO DAILY 04/13/18 04/13/18 History omeprazole 20 mg PO BID 04/13/18 04/13/18 History terazosin 2 mg PO HS 04/13/18 04/13/18 History vitamin B complex 1 cap PO DAILY 04/13/18 04/13/18 History Physical Exam Vital signs: Vital Signs 04/14/18 22:50 04/15/18 05:15 04/15/18 08:10 Temperature 97.2 F L 97.9 F 97.5 F L Pulse Rate 76 82 86 Respiratory Rate 17 17 17 Blood Pressure 139/65 140/63 153/67 H Pulse Oximetry 96 97 97 04/15/18 11:51 04/15/18 16:00 Temperature 97.6 F 97.7 F Pulse Rate 86 78 Respiratory Rate 17 18 Blood Pressure 116/54 L 140/67 Pulse Oximetry 97 95 Intake & Output 04/14/18 04/15/18 04/15/18 18:59 06:59 18:59 Intake Total 2796 / 2796 1780 / 1780 1360 / 1360 Output Total 1400 / 1400 1400 / 1400 1350 / 1350 Balance 1396 / 1396 380 / 380 10 / 10 Weight 113.2 kg Intake: IV 1000 / 1000 1000 / 1000 1000 / 1000 NS Inj 1,000 ML @ 80 mls/hr IV. 1000 / 1000 1000 / 1000 1000 / 1000 CONT .[id number] [facility] Rx#:[id number] Oral 946 / 946 780 / 780 360 / 360 Other 850 / 850 Output: Urine 1400 / 1400 1400 / 1400 1350 / 1350 Other: Other Intake Source Saline Solution # Voids 1 Date of Last Bowel Movement 04/12/18 04/12/18 # Bowel Movements 0 Narrative: General appearance: Patient is an elderly male, he is a medium height he is morbidly obese, he is a pleasant disposition, he sitting up on bedside chair. HEENT: Head atraumatic normocephalic, conjunctivae are non-pale sclerae anicteric, EOMI, PERRLA. Oral exam no pharyngeal erythema, neck exam no palpable cervical supraglottic lymphadenopathy. Respiratory exam: Good air movement bilaterally no added breath sounds, no rhonchi, rales or wheezes. Cardiovascular: Regular rate and rhythm, S1-S2 no obvious murmurs rubs gallops. Chest examination: Sternotomy incision scar noted. Abdominal exam: Morbidly obese, soft, no obvious tenderness, no palpable hepatosplenomegaly, the exam may be limited by his body habitus i.e. morbid obesity. Lower extremities: He has sequential pneumatic compression devices on, no obvious pretibial edema no calf tenderness. NURSE CARE MANAGER: No focal sensorimotor deficits. Psychiatric: Awake, alert, oriented, appropriate mood and affect. Skin examination: Nonfocal. Results - Labs CBC & Chem 7: 04/15/18 04:39 04/15/18 04:39 Labs: Laboratory Results - last 24 hr 04/14/18 04/15/18 04/15/18 21:52 02:54 02:54 WBC RBC Hgb Hct MCV MCH MCHC RDW Plt Count MPV Sodium Potassium Chloride Carbon Dioxide Anion Gap BUN Creatinine Estimated GFR POC Glucose 149 H Random Glucose Calcium Total Protein (PEP) Urine Eosinophils Rare H Ur Random Creatinine Cancelled U Random Total Protein Ur Random Sodium Protein/Creatinin Ratio 04/15/18 04/15/18 04/15/18 02:54 04:39 04:39 WBC 8.8 RBC 3.72 L Hgb 10.8 L Hct 32.5 L MCV 87.3 MCH 29.0 MCHC 33.2 RDW 14.4 Plt Count 303 MPV 8.3 Sodium 143 Potassium 4.1 Chloride 108 H Carbon Dioxide 24.8 Anion Gap 10 BUN 33 H Creatinine 3.06 H Estimated GFR 20 L POC Glucose Random Glucose 145 H Calcium 9.3 Total Protein (PEP) 8.4 H Urine Eosinophils Ur Random Creatinine 49 U Random Total Protein 16.9 H Ur Random Sodium 53 Protein/Creatinin Ratio 0.34 H 04/15/18 04/15/18 04/15/18 08:00 12:09 16:19 WBC RBC Hgb Hct MCV MCH MCHC RDW Plt Count MPV Sodium Potassium Chloride Carbon Dioxide Anion Gap BUN Creatinine Estimated GFR POC Glucose 145 H 248 H 198 H Random Glucose Calcium Total Protein (PEP) Urine Eosinophils Ur Random Creatinine U Random Total Protein Ur Random Sodium Protein/Creatinin Ratio - Imaging Impressions Abdomen MRI 04/15/18 00:00 CONCLUSION: 1. 5.2 cm solid renal mass with central necrosis lower pole left kidney most characteristic of a renal cell carcinoma. No evidence for metastatic disease within the abdomen on MRI. 2. Additional small bilateral simple renal cysts. 3. Numerous gallstones layering dependently in the gallbladder without biliary ductal dilatation. Assessment and Plan - Plan Mr. Sanz is a very pleasant 77-year-old male with a history of type 2 diabetes, morbid obesity, hypertension, hyperlipidemia, valvular heart disease; status post aortic valve replacement, chronic kidney disease. Presents the hospital for further workup and management of acute renal insufficiency, ultrasound of the abdomen revealed a 5 cm mass involving the inferior pole of the left kidney. Presence of this mass was confirmed on MRI of the abdomen without contrast, MRI characteristics of the lesion are highly concerning for a renal cell carcinoma. There is no definite evidence of metastatic disease on MRI within the abdomen i.e. there were no peritoneal metastases, no lymphadenopathy and no obvious bone metastases. A urology evaluation has also been requested. Recommendations: 1. Left renal mass most consistent with renal cell carcinoma on ultrasonographic and MRI: I would like to staging with a CT scan of the thorax without contrast, bone scan may also be required to rule out presence of distal metastases. The patient has no evidence of distal metastases it would be reasonable for him to be considered for a partial nephrectomy. The patient is not an operative candidate i.e. due to his cardiac comorbid conditions, diabetes and renal insufficiency it may be reasonable to treat him with neoadjuvant targeted therapy to reduce the size of this tumor to decrease the size so he may possibly be a candidate for cryoablation. 2. Await urology evaluation. 3. CT thorax is been requested. 4. Acute on chronic renal insufficiency: Management per nephrology. Thank you for asking me to see this patient. I will arrange outpatient follow-up.
[2018-04-15] MEDS: Insulin Detemir Inj 1,000 UNIT/10 ML Vial SQ SCH (21:37)
--- NOTE | 2018-04-15 21:46 | CT ---
EXAM DATE: 04/15/2018 9:30 PM EST AGE/SEX: 77 years / Male INDICATIONS: Evaluate for metastatic disease. CLINICAL DATA: This is the patient's initial encounter. Patient reports that signs and symptoms have been present for 1 day and indicates a pain score of 0/10. MEDICAL/SURGICAL HISTORY: Diabetes. Hypertension. Myocardial infarction. CABG. RADIATION DOSE: 19.91 CTDI (mGy) COMPARISON: No prior exams available for comparison. TECHNIQUE: Multiple contiguous axial images were obtained through the chest without contrast. Image s were obtained in suspended respiration using multiple row detector helical technique. Using automa florencio exposure control and adjustment of the mA and/or kV according to patient size, radiation dose was kept as low as reasonably achievable to obtain optimal diagnostic quality images. DICOM format imag e data is available electronically for review and comparison. FINDINGS: Lungs: Bilateral lower lobe bronchiectasis with bronchial plugging. Mixed groundglass opacity and ar eas of patchy pulmonary consolidation in the lower lobes. Multiple clustered nodular densities in the lower lobes bilaterally. Irregular masslike density in the inferior left lower lobe on image #47 yoandy suring 1.6 cm. 1.7 cm masslike density in the superior segment of left lower lobe on image #25. Mild tree-in-bud opacity in the right middle lobe and minimal nodularity in the lingula. Upper lobes are o therwise clear. Mediastinum: No enlarged lymph nodes. Coronary artery calcification. Aortic diameter within normal l imits. Pleurae: No evidence of focal thickening or pleural effusion. Axillae: Unremarkable. Bony Structures: Unremarkable. Miscellaneous: Upper abdomen is fully described on MRI abdomen of today. CONCLUSION: Bilateral fairly symmetric lower lobe pulmonary opacities. Many of the opacities are nodular but are clustered with distribution and configuration favoring an inflammatory process. Differential diagnosi s includes aspiration and bronchopneumonia. Some of the densities are masslike and indeterminate for malignancy. Short-term follow-up CT in one to 2 months is recommended, particularly given the patient 's clinical history of evaluation for metastatic disease. Electronically signed by: Shane Smith MD Board Certified Radiologist 04/15/2018 9:44 PM EST
[2018-04-16] MEDS: Levothyroxine 75 MCG Tablet PO SCH (08:17)
[2018-04-16] MEDS: Sod Chloride 0.9% Inj 1,000 ML IV.CONT SCH (08:24)
[2018-04-16] MEDS: Insulin NovoLOG Aspart Correctional Sugar Inj SQ SCH ×4 (09:02→20:07)
[2018-04-16] MEDS: Pantoprazole Sodium 20 MG DR Tablet PO SCH ×2 (09:09→20:07)
[2018-04-16] MEDS: amLODIPine 10 MG Tablet PO SCH (09:09)
[2018-04-16] MEDS: hydrALAZINE 25 MG Tablet PO SCH ×3 (09:09→17:35)
[2018-04-16 09:35] LABS: Hemoglobin A1c 6.8 % (4.3-6.0)
--- NOTE | 2018-04-16 11:32 | P.PNIM ---
Subjective Interval history: F/U for MACARIO, renal mass, HTN and DMII. Patient sitting in the chair, denies any pain or shortness of breath other than his regular pain. Patient stated he had some generalized pain and neuropathic pain however not taking any medication for it. And does not want to take any medication for pain. Patient denies any fever or chills. Patient states that he has been voiding well, and more than usual due to the IV fluid. Discussed results of MRI and CT scan, answers questions, patient verbalized understanding. Patient is agreeable for any procedure needed for his treatment. Physical Exam Vital signs: Vital Signs 04/15/18 11:51 04/15/18 16:00 04/15/18 19:21 Temperature 97.6 F 97.7 F 97.5 F L Pulse Rate 86 78 65 Respiratory Rate 17 18 17 Blood Pressure 116/54 L 140/67 122/57 L Pulse Oximetry 97 95 98 04/15/18 23:08 04/16/18 01:30 04/16/18 07:50 Temperature 97.6 F 97.5 F L Pulse Rate 57 L 74 Respiratory Rate 17 16 12 Blood Pressure 132/62 149/65 H Pulse Oximetry 97 97 Intake & Output 04/15/18 04/16/18 04/16/18 18:59 06:59 18:59 Intake Total 1360 / 1360 Output Total 1350 / 1350 1025 / 1025 350 / 350 Balance -1025 / -1025 -350 / -350 Weight 113 kg Intake: IV 1000 / 1000 NS Inj 1,000 ML @ 80 mls/hr IV. 1000 / 1000 CONT .[id number] [facility] Rx#:[id number] Oral 360 / 360 Output: Urine 1350 / 1350 1025 / 1025 350 / 350 Other: Date of Last Bowel Movement 04/12/18 04/16/18 Narrative: GENERAL: Well-developed, well-nourished, obese male, in no acute distress SKIN: Warm and dry. HEAD: Atraumatic. Normocephalic. NECK: Trachea midline. No JVD. CARDIOVASCULAR: Regular rate and rhythm. RESPIRATORY: No accessory muscle use. Clear to auscultation. Breath sounds equal bilaterally. GASTROINTESTINAL: Abdomen obese, soft, non-tender, nondistended. Hepatic and splenic margins not palpable. MUSCULOSKELETAL: Extremities without clubbing, cyanosis. Bilateral lower extremity trace edema, LLE 1+ pitting > RLE trace edema NEUROLOGICAL: Awake and alert. No obvious cranial nerve deficits. Generalized weakness, moving all 4 extremities. Normal speech. PSYCHIATRIC: Appropriate mood and affect; insight and judgment normal. Results Labs CBC & Chem 7: 04/16/18 14:06 04/16/18 14:06 Imaging Imaging: Impressions Chest CT 04/15/18 00:00 CONCLUSION: Bilateral fairly symmetric lower lobe pulmonary opacities. Many of the opacities are nodular but are clustered with distribution and configuration favoring an inflammatory process. Differential diagnosis includes aspiration and bronchopneumonia. Some of the densities are masslike and indeterminate for malignancy. Short-term follow-up CT in one to 2 months is recommended, particularly given the patient's clinical history of evaluation for metastatic disease. Assessment and Plan (1) Acute kidney injury: Code(s): N17.9 - Acute kidney failure, unspecified Status: Acute (2) Left renal mass: Code(s): N28.89 - Other specified disorders of kidney and ureter Status: Acute (3) Diabetes: Code(s): E11.9 - Type 2 diabetes mellitus without complications Status: Acute (4) Chronic kidney disease: Code(s): N18.9 - Chronic kidney disease, unspecified Status: Acute Plan This patient is a 77 y/o Male with a dx of HTN, DLD, DM II, and hx of aortic valve replacement who presents to the ED after he was sent by his PCP for elevated serum creatinine of 6 that was done one week ago in the clinic. The patient was advised to come into the ED today because of the lab results. He says he does not drink much water at home and drinks 6-8 bottles of diet root beer per day. He takes losartan at home for HTN and was unaware that he had any kidney dysfunction. MACARIO - possibly prerenal and medication induced -Patient says he does not drink much water while at home however stays hydrated with diet root beer. -One week ago his serum Cr was 6, currently 3.56 on admission. BUN 39. Patient 's baseline in 04/2017 was around 1.2 -D/c IVF for now due to increasing LLE edema, no SOB - discontinued losartan and HCTZ -consult Nephrology, appreciate assistance -Patient is making urine. -Strict ins/outs. -U/A shows no significant findings. -consult Nephrology, appreciate assistance -Renal Ultrasound: Left Kidney: 4.9 x 5.3 x 3.6 cm hypoechoic mass at the midpole left kidney. Prominent Prostate -monitor BMP Left Renal mass Concerning for renal cell carcinoma -MRI results: 5.2 cm solid renal mass with central necrosis lower pole left kidney most characteristic of a renal cell carcinoma. No evidence for metastatic disease within the abdomen on MRI -CT Chest:Bilateral fairly symmetric lower lobe pulmonary opacities. Many of the opacities are nodular but are clustered with distribution and configuration favoring an inflammatory process. Differential diagnosis includes aspiration and bronchopneumonia. Some of the densities are masslike and indeterminate for malignancy. Short-term follow-up CT in one to 2 months -Oncology consulted: Appreciate assistance. Plan for staging with a CT scan of the thorax without contrast, bone scan may also be required to rule out presence of distal metastases. Recommends neoadjuvant targeted therapy to reduce the size of this tumor to decrease the size so he may possibly be a candidate for Cryoablation. Patient not operative candidate due to comorbid conditions -Urology consulted, Appreciate assistance: Recommendation for Total body bone scan to assess for metastatic disease. Agreed with targeted neoadjuvant therapy to reduce the size of the tumor mass and ultimate cryoablation by interventional radiology if there is no evidence of metastatic disease. Do not recommend partial nephrectomy due to location of tumor and high operative risk Hypertensive Emergency Hx HTN -BP elevated on admission, likely related to MACARIO -Continue metoprolol, Norvasc, and Hydralazine -Hold HCTZ, Hold Losartan due to MACARIO - monitor the blood pressure and adjust medications accordingly -continue Clonidine prn. HX PA HX Aortic valve Replacement -no Cp no SOB -ECG reviewed -2D Echo 05/14/17: LVEF 50-55%, aortic valve prosthesis normal, trivial pulmonary valve regurgitation -following with the Area Mechanic at the [facility] DM II -hold home medications metformin and glipizide due to MACARIO -Start low dose insulin sliding scale -monitor blood sugar with Accu checks q ac and hs and cover with insulin sliding scale -add basal insulin HLD -Continue Statin DVT prophylaxis: Bilateral SCD's. Code Status: Full code Discussed Condition With: Patient and nurse Dr. Hall Discharge Planning: Barrow Worker to assist with discharge planning when cleared with consultants. Progress Note: Quality VTE Deep Vein Thrombosis/Pulmonary Embolism Present on Admission: No _ (1) Diabetes Qualifiers: Chronic kidney disease stage: stage 4 (severe) Diabetes mellitus complication detail: Diabetes mellitus complication status: Diabetes mellitus halfway insulin use: Diabetes mellitus macular edema: Diabetes mellitus type: type 2 Diabetic retinopathy severity: Laterality: Proliferative retinopathy type: (2) Chronic kidney disease Qualifiers: Chronic kidney disease stage: stage 4 (severe) Qualified Code(s): N18.4 - Chronic kidney disease, stage 4 (severe)
--- NOTE | 2018-04-16 12:42 | P.CONURO ---
History of Present Illness Service: Consult date: 04/16/18 Requesting Physician: Constance Butt Reason for Consult: Left renal mass Primary Care Provider: [facility] Chief Complaint: Patient denies complaints at this time. History of Present Illness: 77-year-old gentleman with multiple medical problems who was referred to [facility] room by his primary care physician for abnormal laboratory values with a creatinine measuring 6. Repeat labs in the emergency room demonstrated the creatinine measuring 3.8 which was markedly increased from his baseline levels. Patient was admitted for further evaluation and during the course of his workup and MRI of the abdomen was performed which demonstrated a 5.2 cm solid mass involving the left mid to lower kidney highly suspicious for renal cell carcinoma. A urology consult was placed to address this finding. Patient already has been seen by medical oncology and deemed a poor surgical candidate for a partial nephrectomy. A full metastatic workup was ordered and if negative consideration is being given to neoadjuvant targeted therapy to reduce the size of the left renal mass so that it may be amenable to cryoablation. A chest CT scan was performed that demonstrated multiple lesions involving the lungs likely inflammatory nature however underlying metastases cannot be fully ruled out. A follow-up CT scan in approximately 2 months was recommended by the radiologist to assess for any changes. The total body bone scan has not yet been performed. At the time of consultation, the patient was sitting up quietly in his chair. He denied a history of hematuria or any significant flank pain. I discussed the finding of the left renal mass with the patient and the fact that due to his age and multiple comorbidities he would be a high surgical risk for a partial nephrectomy. I also discussed that due to the size and location of the tumor mass that he would possibly end up having a total nephrectomy performed which would further compromise his overall renal function. Review of Systems All other systems reviewed negative except as stated in HPI PMFSH - History History Provided By: Patient - Medical History Medical History: Medical History (Last Updated 04/14/18 @ 19:12 by Maame Waggoner MD) Agent orange exposure Diabetes HTN (hypertension) High cholesterol Hypothyroidism Male circumcision Myocardial infarction Neuropathy - Surgical History Surgical History: Surgical History (Last Reviewed 04/15/18 @ 19:00 by Cameron Waggoner MD) Hx of ascending aorta replacement - Family History Family History: Family History (Last Reviewed 04/15/18 @ 19:00 by Cameron Waggoner MD) Other Family history of acute myocardial infarction - Tobacco History Second Hand Smoke Exposure: No Smoking Status: Former smoker - Alcohol History How Often Do You Have a Drink Containing Alcohol: Never - Substance Use History Substance History: No History of Abuse - Travel History Recent Travel in the [place] Within the Last 8 Weeks: No Recent Travel Out of the Country Within the Last 8 Weeks: No - Immunization History Tetanus Immunization: <5 Years Hx Influenza Vaccine This Season: Yes Medications and Allergies Active Medications: Active Medications Albuterol (Ventolin Hfa Inh) 2 puff INH Q6H PRN PRN Reason: Shortness Of Breath Amlodipine Besylate (Norvasc) 10 mg PO DAILY [facility] Last Admin: 04/16/18 09:09 Dose: 10 mg Aspirin (Ecotrin) 81 mg PO DAILY [facility] Last Admin: 04/16/18 09:09 Dose: 81 mg Atorvastatin Calcium (Lipitor) 20 mg PO QPM [facility] Last Admin: 04/15/18 17:39 Dose: 20 mg Clonidine HCl (Catapres) 0.1 mg PO Q6H PRN PRN Reason: HYPERTENSION Dextrose (D50w Vial) 50 ml IV.PUSH UNSCH PRN PRN Reason: PER HYPOGLYCEMIA PROTOCOL Glucagon (Glucagon Inj) 1 mg OTHER PRN PRN PRN Reason: for Hypoglycemia Protocol Hydralazine HCl (Apresoline) 25 mg PO TID [facility] Last Admin: 04/16/18 09:09 Dose: 25 mg Sodium Chloride (Ns Inj) 1,000 mls @ 60 mls/hr IV.CONT .[id number] [facility] Last Admin: 04/16/18 08:24 Dose: Not Given Insulin Aspart (Novolog Insulin Correctional Sugar Inj) 0 unit SQ ACHS [facility]; Protocol Last Admin: 04/16/18 09:02 Dose: Not Given Insulin Detemir (Levemir Inj) 5 unit SQ HS [facility] Last Admin: 04/15/18 21:37 Dose: 5 unit Levothyroxine Sodium (Synthroid) 75 mcg PO DAILY@0600 [facility] Last Admin: 04/16/18 08:17 Dose: 75 mcg Metoprolol Succinate (Toprol Xl) 25 mg PO DAILY [facility] Last Admin: 04/16/18 09:09 Dose: 25 mg Multivitamins (Theragran) 1 tab PO DAILY [facility] Last Admin: 04/16/18 09:09 Dose: 1 tab Pantoprazole Sodium (Protonix) 20 mg PO BID [facility] Last Admin: 04/16/18 09:09 Dose: 20 mg Terazosin HCl (Hytrin) 2 mg PO HS [facility] Last Admin: 04/15/18 21:37 Dose: 2 mg Vitamin D (Vitamin D3) 1,000 unit PO DAILY [facility] Last Admin: 04/16/18 09:09 Dose: 1,000 unit Allergies Allergy/AdvReac Type Severity Reaction Status Date / Time No Known Allergies Allergy Verified 04/13/18 08:34 Home Medications Medication Instructions Recorded Confirmed Type albuterol sulfate 2 puff INHALATION Q6H PRN 04/13/18 04/13/18 History arginine oxoglurate 500 mg PO DAILY 04/13/18 04/13/18 History [L-Arginine(alpha-ketoglutarat)] aspirin 81 mg PO DAILY 04/13/18 04/13/18 History atorvastatin [Lipitor] 20 mg PO QPM 04/13/18 04/13/18 History cholecalciferol (vitamin D3) 1,000 unit PO DAILY 04/13/18 04/13/18 History [Vitamin D3] coQ10 (ubiquinol) 100 mg PO DAILY 04/13/18 04/13/18 History cyanocobalamin (vitamin B-12) 1,000 mcg PO DAILY 04/13/18 04/13/18 History [Vitamin B-12] glipizide 20 mg PO BID 04/13/18 04/13/18 History hydrochlorothiazide 25 mg PO DAILY 04/13/18 04/13/18 History ibuprofen 600 mg PO BID PRN 04/13/18 04/13/18 History levothyroxine [Synthroid] 75 mcg PO DAILY 04/13/18 04/13/18 History losartan 100 mg PO DAILY 04/13/18 04/13/18 History metformin 1,000 mg PO BID 04/13/18 04/13/18 History metoprolol succinate 25 mg PO DAILY 04/13/18 04/13/18 History multivitamin 1 tab PO DAILY 04/13/18 04/13/18 History omega [id number]-fish oil [Fish Oil] 1 cap PO DAILY 04/13/18 04/13/18 History omeprazole 20 mg PO BID 04/13/18 04/13/18 History terazosin 2 mg PO HS 04/13/18 04/13/18 History vitamin B complex 1 cap PO DAILY 04/13/18 04/13/18 History Physical Exam Vital Signs - 24 hr 04/15/18 16:00 04/15/18 19:21 04/15/18 23:08 Temperature 97.7 F 97.5 F L 97.6 F Pulse Rate 78 65 57 L Respiratory Rate 18 17 17 Blood Pressure 140/67 122/57 L 132/62 Pulse Oximetry 95 98 97 04/16/18 01:30 04/16/18 07:50 04/16/18 12:04 Temperature 97.5 F L 95.8 F L Pulse Rate 74 67 Respiratory Rate 16 12 12 Blood Pressure 149/65 H 134/58 L Pulse Oximetry 97 98 Physical Exam: GENERAL: This is a well-nourished, well-developed patient, in no apparent distress. SKIN: No rashes, ecchymoses or lesions. Cool and dry. HEAD: Atraumatic. Normocephalic. No temporal or scalp tenderness. EYES: Pupils equal round and reactive. Extraocular motions intact. No scleral icterus. No injection or drainage. ENT: Nose without bleeding, purulent drainage or septal hematoma. Throat without erythema, tonsillar hypertrophy or exudate. Uvula midline. Airway patent. NECK: Trachea midline. No JVD or lymphadenopathy. Supple, nontender, no meningeal signs. GASTROINTESTINAL: Abdomen soft, non-tender, nondistended. No hepato-splenomegaly , or palpable masses. No guarding. GENITOURINARY: No CVA tenderness, bladder not distended MUSCULOSKELETAL: Extremities without clubbing, cyanosis, or edema. No joint tenderness, effusion, or edema noted. No calf tenderness. Negative Homans sign bilaterally. NEUROLOGICAL: Awake and alert. Cranial nerves II through XII intact. Motor and sensory grossly within normal limits. Five out of 5 muscle strength in all muscle groups. Normal speech. Laboratory Results - last 24 hr 04/15/18 04/15/18 04/15/18 02:54 16:19 20:17 POC Glucose 198 H 238 H Hemoglobin A1c Ur Random Creatinine Cancelled 04/16/18 04/16/18 04/16/18 06:20 07:29 11:37 POC Glucose 141 H 269 H Hemoglobin A1c 6.8 H Ur Random Creatinine Result Diagrams: 04/15/18 04:39 04/15/18 04:39 Personally reviewed images: Yes Imaging: ITS Impressions Abdomen/Bladder Ultrasound 04/14/18 00:00 CONCLUSION: 1. Solid appearing left renal mass concerning for malignancy until proven otherwise. Due to limited visualization, consider further evaluation with cross- sectional imaging with contrast if clinically feasible. 2. Prominent prostate. Abdomen MRI 04/15/18 00:00 CONCLUSION: 1. 5.2 cm solid renal mass with central necrosis lower pole left kidney most characteristic of a renal cell carcinoma. No evidence for metastatic disease within the abdomen on MRI. 2. Additional small bilateral simple renal cysts. 3. Numerous gallstones layering dependently in the gallbladder without biliary ductal dilatation. Chest CT 04/15/18 00:00 CONCLUSION: Bilateral fairly symmetric lower lobe pulmonary opacities. Many of the opacities are nodular but are clustered with distribution and configuration favoring an inflammatory process. Differential diagnosis includes aspiration and bronchopneumonia. Some of the densities are masslike and indeterminate for malignancy. Short-term follow-up CT in one to 2 months is recommended, particularly given the patient's clinical history of evaluation for metastatic disease. Assessment and Plan - Assessment (1) Left renal mass Code(s): N28.89 - Other specified disorders of kidney and ureter Status: Acute - Plan Urologic impression: 5.2 cm left mid to lower renal mass suspicious for renal cell carcinoma Recommendations: 1. Total body bone scan to assess for metastatic disease as ordered by oncology 2. Agree with targeted neoadjuvant therapy to reduce the size of the tumor mass and ultimate cryoablation by interventional radiology if there is no evidence of metastatic disease. 3. Do not recommend partial nephrectomy as the patient may end up having a total nephrectomy due to location of the tumor mass as well as the high operative risk due to his multiple comorbidities.
[2018-04-16 15:08] LABS: Baso # (Auto) 0.1 th/mm3 (0.0-0.2); Eos # (Auto) 0.6 th/mm3 (0.0-0.4); Eos % (Auto) 7.5 % (0.0-4.0); Hematocrit 31.3 % (39.0-51.0); Hemoglobin 10.4 gm/dL (13.0-17.0); Lymph # (Auto) 1.5 th/mm3 (1.0-4.8); Lymph % (Auto) 20.2 % (9.0-44.0); Mean Corpuscular HGB Conc 33.3 % (32.0-36.0); Mean Corpuscular Hemoglobin 29.5 pg (27.0-34.0); Mean Corpuscular Volume 88.5 fL (80.0-100.0); Mean Platelet Volume 8.2 fL (7.0-11.0); Mono # (Auto) 0.6 th/mm3 (0.0-0.9); Mono % (Auto) 7.5 % (0.0-8.0); Neut # (Auto) 4.9 th/mm3 (1.8-7.7); Neut % (Auto) 63.8 % (16.0-70.0); Platelet Count 289 th/mm3 (150-450); Red Blood Count 3.54 mil/mm3 (4.50-5.90); Red Cell Distribution Width 14.6 % (11.6-17.2); White Blood Count 7.6 th/mm3 (4.0-11.0)
[2018-04-16 15:28] LABS: Calcium 8.5 mg/dL (8.5-10.1); Carbon Dioxide 25.4 meq/L (21.0-32.0); Potassium 4.2 meq/L (3.5-5.1)
--- NOTE | 2018-04-16 17:33 | P.PNNP ---
Subjective Interval history: Patient states he wants to go home Physical Exam Vital signs: Vital Signs 04/15/18 19:21 04/15/18 23:08 04/16/18 01:30 Temperature 97.5 F L 97.6 F Pulse Rate 65 57 L Respiratory Rate 17 17 16 Blood Pressure 122/57 L 132/62 Pulse Oximetry 98 97 04/16/18 07:50 04/16/18 12:04 04/16/18 13:00 Temperature 97.5 F L 95.8 F L 97.9 F Pulse Rate 74 67 72 Respiratory Rate 12 12 16 Blood Pressure 149/65 H 134/58 L Pulse Oximetry 97 98 98 04/16/18 16:00 Temperature 97.7 F Pulse Rate 60 Respiratory Rate 18 Blood Pressure 120/60 Pulse Oximetry 98 Intake & Output 04/15/18 04/16/18 04/16/18 18:59 06:59 18:59 Intake Total 1360 / 1360 1000 / 1000 Output Total 1350 / 1350 1025 / 1025 350 / 350 Balance -1025 / -1025 650 / 650 Weight 113 kg Intake: IV 1000 / 1000 1000 / 1000 NS Inj 1,000 ML @ 60 mls/hr IV. 1000 / 1000 1000 / 1000 CONT .[id number] [facility] Rx#:[id number] Oral 360 / 360 Output: Urine 1350 / 1350 1025 / 1025 350 / 350 Other: Date of Last Bowel Movement 04/12/18 04/16/18 Narrative: GENERAL: Well-nourished, well-developed patient. SKIN: Warm and dry. HEAD: Normocephalic. EYES: No scleral icterus. No injection or drainage. NECK: Supple, trachea midline. No JVD or lymphadenopathy. CARDIOVASCULAR: Regular rate and rhythm without murmurs, gallops, or rubs. RESPIRATORY: Breath sounds equal bilaterally. No accessory muscle use. GASTROINTESTINAL: Abdomen soft, non-tender, nondistended. EXTREMITIES: As above NEUROLOGICAL: Awake, alert, and oriented x 3. Non-focal. Assessment and Plan - Assessment (1) Acute kidney injury Code(s): N17.9 - Acute kidney failure, unspecified Status: Acute Plan: Patient has dehydration responded to IV fluid with decline in creatinine however he may have stage IV chronic kidney disease due to diabetes, Avoid nephrotoxic agents Strict intake and output Creatinine continues to decline MRI 5.2 lower pole solid renal mass in left kidney urology consult appreciated not a surgical candidate prior to manage this with cryoablation and chemotherapy Oncology is following We will continue to monitor If discharge he can be followed as outpatient (2) Left renal mass Code(s): N28.89 - Other specified disorders of kidney and ureter Status: Acute Plan: solid mass on MRI left renal cell cancer suspect central necrosis (3) Diabetes Code(s): E11.9 - Type 2 diabetes mellitus without complications Status: Acute Qualifiers: Diabetes mellitus type: type 2 Chronic kidney disease stage: stage 4 ( severe) Plan: Patient diabetes better on sliding scale NovoLog and Levemir (4) Chronic kidney disease Code(s): N18.9 - Chronic kidney disease, unspecified Status: Acute Qualifiers: Chronic kidney disease stage: stage 4 (severe) Qualified Code(s): N18.4 - Chronic kidney disease, stage 4 (severe) Plan: Patient is off the diuretic losartan creatinine declined
--- NOTE | 2018-04-16 18:55 | P.PNONC ---
Subjective Interval history: Patient seen and examined, vital signs, labs, medications and CT imaging of the thorax reviewed. Patient reports feeling well, he tells me he is urinating well, is eating well and feels overall well. He feels he is ready to go home. Objective Vital Signs/Intake & Output: Vital Signs 04/15/18 19:21 04/15/18 23:08 04/16/18 01:30 Temperature 97.5 F L 97.6 F Pulse Rate 65 57 L Respiratory Rate 17 17 16 Blood Pressure 122/57 L 132/62 Pulse Oximetry 98 97 04/16/18 07:50 04/16/18 12:04 04/16/18 13:00 Temperature 97.5 F L 95.8 F L 97.9 F Pulse Rate 74 67 72 Respiratory Rate 12 12 16 Blood Pressure 149/65 H 134/58 L Pulse Oximetry 97 98 98 04/16/18 16:00 Temperature 97.7 F Pulse Rate 60 Respiratory Rate 18 Blood Pressure 120/60 Pulse Oximetry 98 Intake & Output 04/15/18 04/16/18 04/16/18 18:59 06:59 18:59 Intake Total 1360 / 1360 1720 / 1720 Output Total 1350 / 1350 1025 / 1025 350 / 350 Balance -1025 / -1025 1370 / 1370 Weight 113 kg Intake: IV 1000 / 1000 1000 / 1000 NS Inj 1,000 ML @ 60 mls/hr IV. 1000 / 1000 1000 / 1000 CONT .[id number] [facility] Rx#:[id number] Oral 360 / 360 720 / 720 Output: Urine 1350 / 1350 1025 / 1025 350 / 350 Other: # Voids 3 Date of Last Bowel Movement 04/12/18 04/16/18 Result Diagrams: 04/16/18 14:06 04/16/18 14:06 Laboratory Results: Laboratory Results - last 24 hr 04/15/18 04/15/18 04/16/18 02:54 20:17 06:20 WBC RBC Hgb Hct MCV MCH MCHC RDW Plt Count MPV Neut % (Auto) Lymph % (Auto) [place] % (Auto) Eos % (Auto) Baso % (Auto) Neut # (Auto) Lymph # (Auto) [place] # (Auto) Eos # (Auto) Baso # (Auto) WBC Differential Differential Comment Sodium Potassium Chloride Carbon Dioxide Anion Gap BUN Creatinine Estimated GFR POC Glucose 238 H Random Glucose Hemoglobin A1c 6.8 H Calcium Ur Random Creatinine Cancelled 04/16/18 04/16/18 04/16/18 07:29 11:37 14:06 WBC 7.6 RBC 3.54 L Hgb 10.4 L Hct 31.3 L MCV 88.5 MCH 29.5 MCHC 33.3 RDW 14.6 Plt Count 289 MPV 8.2 Neut % (Auto) 63.8 Lymph % (Auto) 20.2 [place] % (Auto) 7.5 Eos % (Auto) 7.5 H Baso % (Auto) 1.0 Neut # (Auto) 4.9 Lymph # (Auto) 1.5 [place] # (Auto) 0.6 Eos # (Auto) 0.6 H Baso # (Auto) 0.1 WBC Differential . Differential Comment Auto diff final Sodium Potassium Chloride Carbon Dioxide Anion Gap BUN Creatinine Estimated GFR POC Glucose 141 H 269 H Random Glucose Hemoglobin A1c Calcium Ur Random Creatinine 04/16/18 04/16/18 14:06 17:25 WBC RBC Hgb Hct MCV MCH MCHC RDW Plt Count MPV Neut % (Auto) Lymph % (Auto) [place] % (Auto) Eos % (Auto) Baso % (Auto) Neut # (Auto) Lymph # (Auto) [place] # (Auto) Eos # (Auto) Baso # (Auto) WBC Differential Differential Comment Sodium 140 Potassium 4.2 Chloride 106 Carbon Dioxide 25.4 Anion Gap 9 BUN 26 H Creatinine 2.91 H Estimated GFR 21 L POC Glucose 189 H Random Glucose 205 H Hemoglobin A1c Calcium 8.5 D Ur Random Creatinine Imaging Studies: Impressions Chest CT 04/15/18 00:00 CONCLUSION: Bilateral fairly symmetric lower lobe pulmonary opacities. Many of the opacities are nodular but are clustered with distribution and configuration favoring an inflammatory process. Differential diagnosis includes aspiration and bronchopneumonia. Some of the densities are masslike and indeterminate for malignancy. Short-term follow-up CT in one to 2 months is recommended, particularly given the patient's clinical history of evaluation for metastatic disease. Medications: Active Medications Generic Name Dose Route Start Last Admin Trade Name Freq PRN Reason Stop Dose Admin Amlodipine Besylate 10 mg 04/13/18 14:30 04/16/18 09:09 Norvasc PO 10 mg DAILY [facility] Administration Aspirin 81 mg 04/14/18 09:00 04/16/18 09:09 Ecotrin PO 81 mg DAILY [facility] Administration Atorvastatin Calcium 20 mg 04/13/18 18:00 04/16/18 17:35 Lipitor PO 20 mg QPM [facility] Administration Hydralazine HCl 25 mg 04/13/18 18:00 04/16/18 17:35 Apresoline PO 25 mg TID [facility] Administration Insulin Aspart 0 unit 04/13/18 21:00 04/16/18 17:35 Novolog Insulin Correctional Sugar Inj SQ 1 unit ACHS [facility] Administration Protocol Insulin Detemir 5 unit 04/14/18 21:00 04/15/18 21:37 Levemir Inj SQ 5 unit HS [facility] Administration Levothyroxine Sodium 75 mcg 04/14/18 06:00 04/16/18 08:17 Synthroid PO 75 mcg DAILY@0600 [facility] Administration Metoprolol Succinate 25 mg 04/14/18 09:00 04/16/18 09:09 Toprol Xl PO 25 mg DAILY [facility] Administration Multivitamins 1 tab 04/14/18 09:00 04/16/18 09:09 Theragran PO 1 tab DAILY [facility] Administration Pantoprazole Sodium 20 mg 04/13/18 21:00 04/16/18 09:09 Protonix PO 20 mg BID [facility] Administration Terazosin HCl 2 mg 04/13/18 21:00 04/15/18 21:37 Hytrin PO 2 mg HS [facility] Administration Vitamin D 1,000 unit 04/14/18 09:00 04/16/18 09:09 Vitamin D3 PO 1,000 unit DAILY [facility] Administration Objective Remarks: General appearance: Patient is an elderly male, he is a medium height he is morbidly obese, he is a pleasant disposition, he sitting up on bedside chair. HEENT: Head atraumatic normocephalic, conjunctivae are non-pale sclerae anicteric, EOMI, PERRLA. Oral exam no pharyngeal erythema, neck exam no palpable cervical supraglottic lymphadenopathy. Respiratory exam: Good air movement bilaterally no added breath sounds, no rhonchi, rales or wheezes. Cardiovascular: Regular rate and rhythm, S1-S2 no obvious murmurs rubs gallops. Chest examination: Sternotomy incision scar noted. Abdominal exam: Morbidly obese, soft, no obvious tenderness, no palpable hepatosplenomegaly, the exam may be limited by his body habitus i.e. morbid obesity. Lower extremities: He has sequential pneumatic compression devices on, no obvious pretibial edema no calf tenderness. CAD INTERN: No focal sensorimotor deficits. Psychiatric: Awake, alert, oriented, appropriate mood and affect. Skin examination: Nonfocal. Assessment/Plan - Plan Mr. Sanz is a very pleasant 77-year-old male with a history of type 2 diabetes, morbid obesity, hypertension, hyperlipidemia, valvular heart disease; status post aortic valve replacement, chronic kidney disease. Presents the hospital for further workup and management of acute renal insufficiency, ultrasound of the abdomen revealed a 5 cm mass involving the inferior pole of the left kidney. Presence of this mass was confirmed on MRI of the abdomen without contrast, MRI characteristics of the lesion are highly concerning for a renal cell carcinoma. There is no definite evidence of metastatic disease on MRI within the abdomen i.e. there were no peritoneal metastases, no lymphadenopathy and no obvious bone metastases. Unfortunately CT scan of the thorax indicates multiple patchy infiltrates with nodularity associated with them in bilateral lungs. 1. Left renal mass associated multiple lung nodules and infiltrates: He will require outpatient staging with a PET CT scan and possible image guided biopsy or endobronchial biopsy of 1 of the area representative lung lesions. Even if his lung nodules are found to be benign, it is not clear whether this man will be able to tolerate a nephrectomy. He may be candidate for neoadjuvant therapy to help debulk his primary left renal mass followed by possible cryoablation. His renal function seems to be improving. From an oncologic standpoint he is cleared for discharge. I will arrange outpatient follow-up and subsequent outpatient staging and outpatient treatment. I did provide him with my phone number so he is not lost to follow-up.
[2018-04-16] MEDS: Insulin Detemir Inj 1,000 UNIT/10 ML Vial SQ SCH (20:07)
[2018-04-17 00:55] VITALS: TEMP 97.3
[2018-04-17] MEDS: Levothyroxine 75 MCG Tablet PO SCH (06:36)
[2018-04-17] MEDS: Insulin NovoLOG Aspart Correctional Sugar Inj SQ SCH (08:48)
[2018-04-17] MEDS: hydrALAZINE 25 MG Tablet PO SCH (08:51)
[2018-04-17] MEDS: amLODIPine 10 MG Tablet PO SCH (08:51)
[2018-04-17] MEDS: Pantoprazole Sodium 20 MG DR Tablet PO SCH (08:51)
[2018-04-17 08:59] VITALS: BP 142/68; PULSE 82; RESP 16; O2SAT 96
--- NOTE | 2018-04-17 09:19 | P.DS ---
DS: Providers Date of admission: 04/13/18 13:28 Primary care physician: [facility] Consults: 04/14/18 13:22 Consult to Nephrology Routine Consulting Provider: Maame Waggoner Does the patient have a Revenue Collector who follows them?: No Preferred Nephrology Hospital Scientist:: General Manager Road Production Physician Reason for Consultation: acute MACARIO one week ago serum Creat is 6 Current Creatinin 3.56 Notified:: Service Spoke with:: Jackelyn Date Notified:: 04/14/18 Time Notified:: 13:31 Ordering Provider: LUPE 04/15/18 12:44 Consult to Oncology Routine Consulting Provider: Cameron Waggoner Reason for Consultation: 5.2 cm solid renal mass with central necrosis lower pole left kidney most characteristic of a renal cell carcinoma. No evidence for metastatic disease within the abdomen on MRI Notified:: Office Spoke with:: Helena Date Notified:: 04/15/18 Time Notified:: 13:08 Ordering Provider: LUPE Consult to Urology Routine Consulting Provider: Yovanny Ryder Reason for Consultation: Renal Mass 5.2 cm solid renal mass with central necrosis lower pole left kidney most characteristic of a renal cell carcinoma. No evidence for metastatic disease within the abdomen on MRI Notified:: Office Spoke with:: Mehreen Date Notified:: 04/15/18 Time Notified:: 13:58 Ordering Provider: LUPE Brief History from admission: This patient is a 77 y/o Male with a dx of HTN, DLD, DM II, and hx of aortic valve replacement who presents to the ED after he was sent by his PCP for elevated serum creatinine of 6 that was done one week ago in the clinic. The patient was advised to come into the ED today because of the lab results. He says he does not drink much water at home and drinks 6- 8 bottles of diet root beer per day. He takes losartan at home for HTN and was unaware that he had any kidney dysfunction. He denies any fevers or chills. No shortness of breath, no recent illness or sick contacts. PMH as mentioned above Fam hx significant for CAD Social hx patient admits to an extensive tobacco smoking and etoh abuse hx. Quit 30 yrs ago. Patient admits to using IV morphine when he was in [place]. DS: Summary This patient is a 77 y/o Male with a dx of HTN, DLD, DM II, and hx of aortic valve replacement who presents to the ED after he was sent by his PCP for elevated serum creatinine of 6 that was done one week ago in the clinic. The patient was advised to come into the ED today because of the lab results. He says he does not drink much water at home and drinks 6-8 bottles of diet root beer per day. He takes losartan at home for HTN and was unaware that he had any kidney dysfunction. MACARIO - possibly prerenal and medication induced -Patient says he does not drink much water while at home however stays hydrated with diet root beer. -One week ago his serum Cr was 6, currently 3.56 on admission. BUN 39. Patient 's baseline in 04/2017 was around 1.2 -D/c IVF for now due to increasing LLE edema, no SOB - discontinued losartan and HCTZ -consult Nephrology, appreciate assistance -Patient is making urine. -Strict ins/outs. -U/A shows no significant findings. -Nephrology following, appreciate assistance -Renal Ultrasound: Left Kidney: 4.9 x 5.3 x 3.6 cm hypoechoic mass at the midpole left kidney. Prominent Prostate -monitor BMP -Follow up with Nephrology as out patient, Dr Hatfield Left Renal mass Concerning for renal cell carcinoma -MRI results: 5.2 cm solid renal mass with central necrosis lower pole left kidney most characteristic of a renal cell carcinoma. No evidence for metastatic disease within the abdomen on MRI -CT Chest:Bilateral fairly symmetric lower lobe pulmonary opacities. Many of the opacities are nodular but are clustered with distribution and configuration favoring an inflammatory process. Differential diagnosis includes aspiration and bronchopneumonia. Some of the densities are masslike and indeterminate for malignancy. Short-term follow-up CT in one to 2 months -Oncology consulted: Appreciate assistance. Plan for staging with a CT scan of the thorax without contrast, bone scan may also be required to rule out presence of distal metastases. Recommends neoadjuvant targeted therapy to reduce the size of this tumor to decrease the size so he may possibly be a candidate for Cryoablation. Patient not operative candidate due to comorbid conditions -Urology consulted, Appreciate assistance: Recommendation for Total body bone scan to assess for metastatic disease. Agreed with targeted neoadjuvant therapy to reduce the size of the tumor mass and ultimate cryoablation by interventional radiology if there is no evidence of metastatic disease. Do not recommend partial nephrectomy due to location of tumor and high operative risk -Follow up with Oncology as outpatient, Cameron Hare : Plan : He will require outpatient staging with a PET CT scan and possible image guided biopsy or endobronchial biopsy of 1 of the phlebotomy services representative lung lesions. Even if his lung nodules are found to be benign, it is not clear whether this man will be able to tolerate a nephrectomy. He may be candidate for neoadjuvant therapy to help debulk his primary left renal mass followed by possible cryoablation. From Oncologic standpoint he is cleared for discharge. I will arrange outpatient follow-up and subsequent outpatient staging and outpatient treatment. Hypertensive Emergency Hx HTN -BP elevated on admission, likely related to MACARIO -Continue metoprolol, Norvasc, and Hydralazine -Hold HCTZ, Hold Losartan due to MACARIO - monitor the blood pressure and adjust medications accordingly -continue Clonidine prn. HX MS HX Aortic valve Replacement -no Cp no SOB -ECG reviewed -2D Echo 05/14/17: LVEF 50-55%, aortic valve prosthesis normal, trivial pulmonary valve regurgitation -following with the [facility] Drum Operator [facility] DM II -hold home medications metformin and glipizide due to MACARIO -Start low dose insulin sliding scale -monitor blood sugar with Accu checks q ac and hs and cover with insulin sliding scale -add basal insulin HLD -Continue Statin Follow up with PCP/[facility] in 3 days DVT prophylaxis: Bilateral SCD's. Time Spent with Patient Total time spent providing and/or coordinating discharge services: Greater than 30 minutes Status at Discharge Functional status at discharge: independent ambulation Quality: VTE Deep Vein Thrombosis/Pulmonary Embolism Present on Admission: No Exam Narrative Exam Narrative: GENERAL: Well-developed, well-nourished, obese male, in no acute distress SKIN: Warm and dry. HEAD: Atraumatic. Normocephalic. NECK: Trachea midline. No JVD. CARDIOVASCULAR: Regular rate and rhythm. RESPIRATORY: No accessory muscle use. Clear to auscultation. Breath sounds equal bilaterally. GASTROINTESTINAL: Abdomen obese, soft, non-tender, nondistended. Hepatic and splenic margins not palpable. MUSCULOSKELETAL: Extremities without clubbing, cyanosis. Bilateral lower extremity trace edema, LLE 1+ pitting > RLE trace edema NEUROLOGICAL: Awake and alert and oriented x 3. No obvious cranial nerve deficits. Generalized weakness, moving all 4 extremities. Normal speech. PSYCHIATRIC: Appropriate mood and affect; insight and judgment normal. Results Labs on day of discharge: Labs from last 24 hours 04/17/18 04/16/18 04/16/18 07:54 19:51 17:25 WBC RBC Hgb Hct MCV MCH MCHC RDW Plt Count MPV Neut % (Auto) Lymph % (Auto) Davison % (Auto) Eos % (Auto) Baso % (Auto) Neut # (Auto) Lymph # (Auto) Davison # (Auto) Eos # (Auto) Baso # (Auto) WBC Differential Differential Comment Sodium Potassium Chloride Carbon Dioxide Anion Gap BUN Creatinine Estimated GFR POC Glucose 146 H 269 H 189 H Random Glucose Hemoglobin A1c Calcium 04/16/18 04/16/18 04/16/18 14:06 14:06 11:37 WBC 7.6 RBC 3.54 L Hgb 10.4 L Hct 31.3 L MCV 88.5 MCH 29.5 MCHC 33.3 RDW 14.6 Plt Count 289 MPV 8.2 Neut % (Auto) 63.8 Lymph % (Auto) 20.2 Davison % (Auto) 7.5 Eos % (Auto) 7.5 H Baso % (Auto) 1.0 Neut # (Auto) 4.9 Lymph # (Auto) 1.5 Davison # (Auto) 0.6 Eos # (Auto) 0.6 H Baso # (Auto) 0.1 WBC Differential . Differential Comment Auto diff final Sodium 140 Potassium 4.2 Chloride 106 Carbon Dioxide 25.4 Anion Gap 9 BUN 26 H Creatinine 2.91 H Estimated GFR 21 L POC Glucose 269 H Random Glucose 205 H Hemoglobin A1c Calcium 8.5 D 04/16/18 06:20 WBC RBC Hgb Hct MCV MCH MCHC RDW Plt Count MPV Neut % (Auto) Lymph % (Auto) Davison % (Auto) Eos % (Auto) Baso % (Auto) Neut # (Auto) Lymph # (Auto) Davison # (Auto) Eos # (Auto) Baso # (Auto) WBC Differential Differential Comment Sodium Potassium Chloride Carbon Dioxide Anion Gap BUN Creatinine Estimated GFR POC Glucose Random Glucose Hemoglobin A1c 6.8 H Calcium Impressions ITS Impressions Abdomen/Bladder Ultrasound 04/14/18 00:00 CONCLUSION: 1. Solid appearing left renal mass concerning for malignancy until proven otherwise. Due to limited visualization, consider further evaluation with cross- sectional imaging with contrast if clinically feasible. 2. Prominent prostate. Abdomen MRI 04/15/18 00:00 CONCLUSION: 1. 5.2 cm solid renal mass with central necrosis lower pole left kidney most characteristic of a renal cell carcinoma. No evidence for metastatic disease within the abdomen on MRI. 2. Additional small bilateral simple renal cysts. 3. Numerous gallstones layering dependently in the gallbladder without biliary ductal dilatation. Chest CT 04/15/18 00:00 CONCLUSION: Bilateral fairly symmetric lower lobe pulmonary opacities. Many of the opacities are nodular but are clustered with distribution and configuration favoring an inflammatory process. Differential diagnosis includes aspiration and bronchopneumonia. Some of the densities are masslike and indeterminate for malignancy. Short-term follow-up CT in one to 2 months is recommended, particularly given the patient's clinical history of evaluation for metastatic disease. Discharge Plan Discharge Disposition Patient Disposition: 01 Discharge Home Discharge Condition Condition: Stable Discharge Order Discharge Orders: Discharge Order (Routine); Ordered 04/17/18 Ordered By: Constance Butt Nephrology Clear for Discharge (Routine); Ordered 04/17/18 Ordered By: Constance Butt Oncology Clear for Discharge (Routine); Ordered 04/17/18 Ordered By: Constance Butt Discharge Details Anticipated Discharge Date: 04/17/18 Physicians Team ED Provider: Luis Henderson ED Midlevel Provider: Kezia Mcbride Primary Care Provider: [facility] Attending Provider: Marisa Hall Other Providers: Maame Waggoner ; Cameron Waggoner ; Yovanny Ryder Rxs /Orders / Referrals /Forms Prescriptions: New hydralazine 25 mg Tablet 25 mg PO TID Qty: 90 RF: 0 amlodipine [Norvasc] 10 mg Tablet 10 mg PO DAILY Qty: 30 RF: 0 insulin detemir U-100 [Levemir U-100 Insulin] 100 unit/mL Solution 8 unit subcut HS Qty: 1 RF: 0 insulin aspart U-100 [Novolog U-100 Insulin aspart] 100 unit/mL Solution subcut ACHS Qty: 1 RF: 0 Continue atorvastatin [Lipitor] 20 mg Tablet 20 mg PO QPM RF: 0 levothyroxine [Synthroid] 75 mcg Tablet 75 mcg PO DAILY RF: 0 terazosin 2 mg Capsule 2 mg PO HS RF: 0 metoprolol succinate 50 mg Tablet Extended Release 24 Hr 25 mg PO DAILY RF: 0 aspirin 81 mg Tablet,Delayed Release (Dr/Ec) 81 mg PO DAILY RF: 0 albuterol sulfate 90 mcg/actuation Hfa Aerosol Inhaler 2 puff INHALATION Q6H PRN (Reason: Shortness Of Breath) RF: 0 multivitamin Tablet 1 tab PO DAILY RF: 0 omeprazole 20 mg Tablet,Delayed Release (Dr/Ec) 20 mg PO BID RF: 0 cyanocobalamin (vitamin B-12) [Vitamin B-12] 1,000 mcg Tablet 1,000 mcg PO DAILY RF: 0 vitamin B complex Capsule 1 cap PO DAILY RF: 0 cholecalciferol (vitamin D3) [Vitamin D3] 1,000 unit Tablet 1,000 unit PO DAILY RF: 0 omega 6-fis-kgg-fish oil [Fish Oil] 1,000 mg (120 mg-180 mg) Capsule 1 cap PO DAILY RF: 0 coQ10 (ubiquinol) 100 mg Capsule 100 mg PO DAILY RF: 0 Discontinued glipizide 10 mg Tablet 20 mg PO BID RF: 0 metformin 1,000 mg Tablet 1,000 mg PO BID RF: 0 hydrochlorothiazide 25 mg Tablet 25 mg PO DAILY RF: 0 losartan 100 mg Tablet 100 mg PO DAILY RF: 0 ibuprofen 600 mg Tablet 600 mg PO BID PRN (Reason: Pain) RF: 0 arginine oxoglurate [L-Arginine(alpha-ketoglutarat)] 350 mg Tablet Extended Release 500 mg PO DAILY RF: 0 Referrals: [facility] [Primary Care Provider] - See Instructions ( Follow up in 3 days) Maame Waggoner MD [Physician] - See Instructions (Follow up next week) Cameron Waggoner MD [Physician] - See Instructions (follow up in 1 week) Discharge Interventions Interventions: Discharge Planning - Case Management Last Done: 04/17/18 08:44 Status ED Status: Left Department
== END 2018-04-17 09:49 | disposition home or self-care (01) | DRG 683 ==
LOC: NEPB 08:26 → NEDA 13:28 → N06 23:13
PROVIDERS: ADMIT Family Medicine; ATTEND Family Medicine
DX: E86.0 Dehydration; G62.9 Polyneuropathy, unspecified; N18.4 Chronic kidney disease, stage 4 (severe); R91.8 Other nonspecific abnormal finding of lung field; E78.5 Hyperlipidemia, unspecified; N28.89 Other specified disorders of kidney and ureter; I12.9 Hypertensive chronic kidney disease with stage 1 through stage 4 chronic kidney disease, or unspecified chronic kidney disease; E78.00 Pure hypercholesterolemia, unspecified; N17.9 Acute kidney failure, unspecified; M19.90 Unspecified osteoarthritis, unspecified site; Z95.2 Presence of prosthetic heart valve; I25.2 Old myocardial infarction; I16.1 Hypertensive emergency; E11.22 Type 2 diabetes mellitus with diabetic chronic kidney disease; Z79.84 Long term (current) use of oral hypoglycemic drugs; Z87.891 Personal history of nicotine dependence; Z79.899 Other long term (current) drug therapy; Z82.49 Family history of ischemic heart disease and other diseases of the circulatory system; E11.40 Type 2 diabetes mellitus with diabetic neuropathy, unspecified; E66.01 Morbid (severe) obesity due to excess calories; Z68.37 Body mass index [BMI] 37.0-37.9, adult; E03.9 Hypothyroidism, unspecified; Z79.890 Hormone replacement therapy; R60.0 Localized edema; Z79.82 Long term (current) use of aspirin
CPT/HCPCS: 71250; 74181; 76775; 80048; 80053; 81001; 82570; 82948; 82962; 83036; 83690; 83735; 84155; 84157; 84165; 84300; 85025; 85027; 86334; 86335; 87205; 93005; 99285; J1815; J7030; J7040